=== PATIENT | female | born 1935 | race Caucasian/White ===

== ENCOUNTER 2017-04-01 20:08 | Emergency (ER) | payer MEDICARE, OTHER ==
--- NOTE | 2017-04-01 21:37 | RAD ---
RIGHT SHOULDER THREE VIEWS 04/01/17 HISTORY: Fall. COMPARISON: None. FINDINGS: Multiple old right sided healed rib fractures as seen on prior CT of 03/03/16. No acute fracture or m alalignment of the right shoulder. IMPRESSION: No acute fracture or malalignment of the right shoulder. POS: [facility]
--- NOTE | 2017-04-01 22:42 | CT ---
CT BRAIN WITHOUT CONTRAST 04/01/17 HISTORY: Fall. COMPARISON: CT brain 02/27/16. FINDINGS: Moderate atrophy. Extensive microvascular ischemic changes, chronic. Atrophy of the left inferior tem poral lobe. No hemorrhage. No midline shift of mass effect. The calvarium is intact. The paranasal sinuses and mastoids are clear. IMPRESSION: Chronic changes. No acute intracranial abnormality. POS: [facility]
--- NOTE | 2017-04-01 23:04 | CT ---
EXAM: CT CERVICAL SPINE WITHOUT CONTRAST 04/01/17 COMPARISON: 07/16/15. HISTORY: Fall. Pain. TECHNIQUE: Cervical spine Ct is performed without contrast. reformatted images are submitted for interpretation. FINDINGS: Odontoid process is intact. Lateral masses of C1 and C2 articulate appropriately. There is appropriat e alignment of the facets. Multilevel facet degenerative changes noted. There are varying degrees of central canal stenosis and foraminal narrowing on the basis of degenerative change. The visualized soft tissue neck structures are unremarkable. Chronic changes in the lung apices are n oted. Upper mediastinum is unremarkable. On the sagittal reformatted images, there is anterolisthesis of C4 upon C5, and C5 upon C6. The degre e of anterolisthesis at C4-C5 is unchanged. There is progression of anterolisthesis of C5 upon C6. If there is concern for ligamentous injury, consider MRI. Cervical spine vertebral body height is maintained. No fracture. IMPRESSION: 1. No fracture. 2. Stable anterolisthesis of C4 upon C5. Progression of anterolisthesis of C5 upon C6, likely du e to degenerative change. If there is concern for ligamentous injury, consider MRI. POS: [facility]
== END 2017-04-01 23:30 | disposition home or self-care (01) ==
LOC: ERS 20:08
DX: S01.01XA Laceration without foreign body of scalp, initial encounter (principal); I10 Essential (primary) hypertension; I48.91 Unspecified atrial fibrillation; Z86.73 Personal history of transient ischemic attack (TIA), and cerebral infarction without residual deficits; J42 Unspecified chronic bronchitis; Z79.82 Long term (current) use of aspirin; Z79.899 Other long term (current) drug therapy; W01.0XXA Fall on same level from slipping, tripping and stumbling without subsequent striking against object, initial encounter
CPT/HCPCS: 12011; 70450; 72125

== ENCOUNTER 2017-05-22 13:27 | Outpatient (CLI) | payer MEDICARE, OTHER ==
--- NOTE | 2017-05-22 14:04 | RAD ---
CHEST 2 VIEWS: HISTORY: Dyspnea. COMPARISON: Chest 1 view 03/03/16. FINDINGS: Chronic pleural and parenchymal changes of the lung bases and lung apices. No focal airspace consoli dation, pneumothorax, or effusion. Old rib fractures. Heart size is similar. IMPRESSION: Chronic changes. No acute intrathoracic abnormality. No significant change. POS: [facility]
== END 2017-05-22 13:28 | disposition home or self-care (01) ==
LOC: RAD 13:27
PROVIDERS: ATTEND Internal Medicine Pulmonary Disease
DX: E03.8 Other specified hypothyroidism (principal); I10 Essential (primary) hypertension; E78.5 Hyperlipidemia, unspecified; D64.9 Anemia, unspecified; E55.9 Vitamin D deficiency, unspecified; E11.9 Type 2 diabetes mellitus without complications; Z79.899 Other long term (current) drug therapy
CPT/HCPCS: 71046

== ENCOUNTER 2017-12-21 12:01 | Inpatient (IN) | payer MEDICARE, OTHER ==
[2017-12-21 12:27] LABS: Bilirubin Small (Negative); Blood, Urine Small (Negative); Clarity TURBID (Clear); Glucose, Urine (Dipstick) Negative (Negative); Leukocyte Large (Negative); Nitrite Negative (Negative); Protein, Urine (Dipstick) 30 mg/dL (Neg-Trace); Specific Gravity, Urine 1.023 (1.002-1.036)
[2017-12-21 12:28] LABS: Bacteria/HPF 4+ HPF (None Seen); Hyaline Casts/LPF 4-6 HYALINE CAST LPF (0-3 Hyaline); Pathc Cast-AUWi Flag 1.38 (0-2.49); Squamous Epithelial None Seen HPF (0-3)
[2017-12-21 12:30] LABS: Yeast-AUWi Flag 116.5 (0-25.0)
[2017-12-21 12:37] LABS: Yeast-All Forms None Seen HPF (None Seen)
[2017-12-21 12:49] LABS: #Lymphocytes 0.8 thou/uL (1.20-3.40); #Monocytes 0.7 thou/uL (0.11-0.59); #Neutrophils 8.4 thou/uL (1.40-6.50); %Eosinophils 0.4 % (0.0-10.0); %Lymphocytes 8.2 % (21.0-51.0); %Monocytes 7.2 % (0.0-10.0); %Neutrophils 84.2 % (42.0-75.0); Hemoglobin 12.5 g/dL (12.0-16.0); MDiff Complete? YES; Macrocytosis SLIGHT = 6-15 cells (100X) (0-5/hpf); Mean Corpuscular HGB CONC 33.5 g/dL (32.0-36.0); Mean Corpuscular Hemoglobin 37.2 pg (27.0-31.0); Mean Platelet Volume 7.1 fL (7.4-10.4); Platelet Count 249 thou/uL (130-400); Polychromasia SLIGHT = 2-3 cells (100X) (0-2/hpf); RBC Distribution Width 14.1 % (11.5-14.5); Red Blood Cell (RBC) Count 3.37 mill/uL (4.20-5.40)
[2017-12-21 12:53] LABS: ALT (SGPT) 10 U/L (8-55); AST (SGOT) 22 U/L (5-34); Albumin 3.8 g/dL (3.4-4.8); Alkaline Phosphatase 68 U/L (40-150); Anion Gap 13 mmol/L (10-20); BUN (Urea Nitrogen) 12 mg/dL (9.8-20.1); Bilirubin, Total 0.7 mg/dL (0.2-1.2); CK (CPK) 76 U/L (29-168); Calc. Creatinine Clearance 0 mL/min (70-130); Calcium 9.4 mg/dL (7.8-10.44); Carbon Dioxide 20 mmol/L (23-31); Chloride 105 mmol/L (98-107); Estimated GFR-MDRD 69; Globulin 3.3 g/dL (2.4-3.5); Glucose 219 mg/dL (83-110); Potassium 3.8 mmol/L (3.5-5.1); Protein, Total 7.1 g/dL (6.0-8.3); Sodium 134 mmol/L (136-145)
[2017-12-21 13:11] LABS: Troponin I 0.217 ng/mL (< 0.028)
[2017-12-21] MEDS ORDERED: cefTRIAXone\\ROCEPHIN 2 GM VIAL ONE (13:46)
--- NOTE | 2017-12-21 13:53 | CT ---
CT OF THE BRAIN WITHOUT CONTRAST: Date: 12/21/17 COMPARISON: 04/01/17. HISTORY: Fall on Friday. Increased weakness per the event. Baseline dementia. TECHNIQUE: Multiple contiguous axial images were obtained in a CT of the brain without contrast. FINDINGS: There are scattered hypodensities in the subcortical and periventricular white matter, likely seconda ry to small vessel ischemic disease. No large confluent infarction is seen. There is no evidence of h ydrocephalus, intracranial hemorrhage, or extra-axial fluid collection. The calvarium and overlying soft tissues are unremarkable. The visualized paranasal sinuses and masto id air cells are well aerated. IMPRESSION: No evidence of acute intracranial abnormality. POS: [facility]
--- NOTE | 2017-12-21 13:58 | CT ---
CT CERVICAL SPINE: Date: 12/21/17 HISTORY: Patient with fall 4 days ago with weakness. History of dementia. FINDINGS: Noncontrast enhanced CT images of cervical spine obtained. Sagittal and coronal reconstructed images performed. FINDINGS: CT images demonstrate minimal anterolisthesis of C4 on C5. Disc space height loss is also seen at C5- 6. Broad based disc osteophyte complex is seen at C5-6 and C6-7. No evidence of acute cervical spine fractures, subluxations, or bony lesions seen. IMPRESSION: Cervical degenerative changes with no evidence of acute cervical spine fractures seen. POS: [facility]
--- NOTE | 2017-12-21 14:03 | CT ---
CT LUMBAR SPINE: Date: 12/21/17 HISTORY: Fall. Back pain. TECHNIQUE: Noncontrast enhanced CT images of lumbar spine indicate an acute T12 compression fracture with approx imately 35% height loss at the T12 level. There is approximately 5.5 mm of retropulsion of some of th e displaced osseous fragments at the anterior aspect of the spinal canal. The posterior elements of T 12 are intact. There is Grade II anterolisthesis of L5 on S1 and bilateral pars defects. These were present on the p yasmine's previous comparison CT from 01/28/12. No other acute lumbar spine lesions seen. IMPRESSION: Acute T12 compression fracture with approximately 35% height loss. Findings called to [place] at 1303 hours on 12/21/17. CODE CR. POS: [facility]
--- NOTE | 2017-12-21 14:11 | RAD ---
SINGLE VIEW PELVIS: Date: 12/21/17 COMPARISON: 07/17/15. HISTORY: Fall on Friday with increased weakness since the event. FINDINGS: Single view of the pelvis shows no evidence of acute fracture or dislocation. There is remodeling of the left superior and inferior pubic rami which represent remote healed fractures. Degenerative reese es are seen in the lumbar spine. IMPRESSION: Healed left pelvic fractures without acute osseous abnormality. POS: [facility]
[2017-12-21 15:59] LABS: Troponin I 0.241 ng/mL (< 0.028)
[2017-12-21] MEDS ORDERED: Acetaminophen 325 MG TAB PO PRN (18:33)
[2017-12-21] MEDS ORDERED: cloNIDine 0.1 MG TAB PO PRN (18:38)
[2017-12-21 18:46] LABS: Troponin I 0.227 ng/mL (< 0.028)
[2017-12-21] MEDS: Potassium Chloride 10 MEQ TAB PO SCH (21:22)
[2017-12-21] MEDS: levETIRAcetam 500 mg/5 ml Oral Solution PO SCH (21:23)
[2017-12-21] MEDS: sulfaSALAzine 500 MG TAB PO SCH (21:23)
[2017-12-21] MEDS: Metoprolol Tartrate 25 MG TAB PO SCH (21:23)
[2017-12-22] MEDS: HYDROcodone/Acetaminophen 5/325 mg Tablet PO PRN ×4 (00:33→21:04)
--- NOTE | 2017-12-22 01:25 | CON ---
DATE OF CONSULTATION: 12/21/2017 CHIEF COMPLAINT: Altered mental status and weakness. HISTORY OF PRESENT ILLNESS: Ms. Aguiar has a baseline dementia and history of stroke approximately 3 years ago, who reported that she had a fall 4 days ago that was not witnessed. The patient lives wi th her and he found her on the floor and at times her son come over and picks her up. Follow ing that incident, the patient has had low back pain. She states that she has been increasingly conf used over the last 4 days as well as having some increase in pain. She denies any radicular pain. N o numbness or tingling down either one of her legs. She denies any new urinary symptoms other than f requency which is normal with her UTI. The patient has had to wear adult diapers for sometime now an d she has no new urgency or incontinence. The patient has short term memory loss; however, that has gotten worse the last few days. Her long-term memory is more or less intact. The patient is alert a nd oriented to person. She notes that she is in the hospital, but is unsure what hospital it is. Th e patient's son and daughter have been in the room. They state that the patient's has been t rying to wean her off her walker a little too quickly and this has led to some increase in falls. REVIEW OF SYSTEMS: The patient denies any fever or chills recently. She does report some fatigue an d weakness. The patient denies any change in vision or hearing. No difficulty with swallowing. No abdominal anita n, shortness of breath, palpitations or chest pain. The patient denies any nausea or vomiting. No d iarrhea or constipation. The patient reports back pain. No neurologic changes. PAST MEDICAL HISTORY: Cardiac history of arrhythmia, atrial fibrillation and also SVT; history of hy pertension; rheumatoid arthritis; frequent falls; chronic bronchitis; and osteoporosis. PAST SURGICAL HISTORY: Appendectomy, hysterectomy and cardiac ablation. SOCIAL HISTORY: The patient denies any use of alcohol. No smoking or other illicit drugs. She live s with her in their home. They have someone come in and help prepare meals and a nurse that will give medications once a week or so. They are currently living fairly independently. ALLERGIES: PENICILLIN. MEDICATIONS: Aspirin, Tirosint, atorvastatin, folic acid, , levothyroxine, lisinopril, metoprol ol, pantoprazole, potassium chloride, prednisone, trazodone, , clonidine, diltiazem. PHYSICAL EXAMINATION: VITAL SIGNS: Temperature 97.1, heart rate 79, respiratory rate 18, O2 sats 97% on room air, blood pr essure 160/71. GENERAL: The patient is resting in her hospital bed. She does not appear to be in any visible distr ess. She is afebrile. Nonhypertensive, nontoxic. She is alert and oriented to person, place, and t ely. HEAD: Normocephalic, atraumatic. EYES: Extraocular movements are intact. Pupils are equal, round, and reactive to light. ENT: Moist mucous membranes. RESPIRATORY: Normal work of breathing on room air. Normal chest rise bilateral symmetrical. CARDIOVASCULAR: Regular rate and rhythm, normal S1, S2. NEUROLOGIC: The patient is alert and oriented to person and place. She knows that she is in the [facility], but is unaware of what hospital. Her short term memory is poor; however, that is normal for h er due to her dementia. medical terminologist memory is little better. The patient has midline tenderness along her spine in the T11 through L3. Her paraspinal muscles bilaterally are also tender and spasm. The patient is able to move all 4 extremities. She is able to follow directions. She has good strength and no focal motor deficits, no sensory deficits in all 4 extremities. Cranial nerves are intact. IMAGING: The patient has an acute T12 compression fracture with approximately 35% height loss. Ther e is approximately 5.5 mm retropulsion into the anterior space of the spinal cord. ASSESSMENT AND PLAN: The patient had sustained a T11 compression fracture. At this time, we will pu t a clamshell TLSO brace on the patient for pain control. She is being admitted with the hospitalist department to treat her urinary tract infection. While she is in the hospital, she should be seen b y physical therapy. A rehab is probably going to be a good idea for this patient to increase her str ength more time. The patient should wear her brace at anytime that she is sitting up and out of bed. She should have the brace put on while she is lying down before she sits up. She does not need to be wearing it while she is in bed or showering.
--- NOTE | 2017-12-22 02:07 | HP ---
CHIEF COMPLAINT: Back pain. HISTORY OF PRESENT ILLNESS: The patient is an 82-year-old female with a history of osteoporosis, also has some dementia. The patient also has a history of prior pelvic fracture. The patient fell 4 days prior to her admission. Initially, she appeared to be okay, but over the following couple of days had progressive pain in her back and difficulty functioning because of debility associated with the pain. Ultimately, the patient was brought to the emergency department for further evaluation. The patient has underlying dementia and is unable to give significant history otherwise. The patient's and daughter with her and they report that she simply tripped over something on the floor. She had no loss of consciousness. She had earlier associated some pain in her hip on the right side as well. The patient typically ambulates with a walker, has not been able to do that. REVIEW OF SYSTEMS: Not obtainable from the patient. She has been reported that she has had basically normal bowel and bladder habits. She has had normal appetite, normal sleep and unaware of any other problems that she has been experiencing. PAST MEDICAL HISTORY: Notable for history of atrial fibrillation and SVT, hypertension, rheumatoid arthritis, dementia, history of SIADH with hypertension, history of COPD. PAST SURGICAL HISTORY: Appendectomy, hysterectomy, and cardiac ablation. SOCIAL HISTORY: Nondrinker, nonsmoker. She is . She is a [employer] and her is her surrogate decision maker should that be necessary. ALLERGIES: PENICILLIN. CURRENT MEDICATIONS: Trazodone 50 mg at bedtime, prednisone 20 mg daily, Protonix 40 daily, clonidine 0.1 q.6 hours p.r.n., folate 1 mg daily, diltiazem 30 mg q.i.d., levothyroxine 137 mcg daily, atorvastatin 10 mg daily, aspirin 81 mg daily, metoprolol 25 b.i.d., Zestril 20 mg daily, potassium 10 mEq b.i.d., Azulfidine 500 mg b.i.d., Keppra 500 mg b.i.d. PHYSICAL EXAMINATION: VITAL SIGNS: Temperature 98.7, pulse 91, respirations 16, 97% on room air, BP 167/84. GENERAL APPEARANCE: Age appropriate female. She is in no distress. She is modestly and verbally interactive, but significantly confused. HEENT: PERRL. No OP lesions. HEART: Regular rate and rhythm without murmur. LUNGS: Clear to auscultation bilaterally. ABDOMEN: Soft, nontender, nondistended. EXTREMITIES: Warm and dry. She has a TLSO brace on. IMAGING: Lumbar CT shows an acute T12 compression fracture with 35% loss of height. CT of the brain negative. Pelvic x-ray healed left pelvic fracture with no other acute osseous abnormalities. C-spine, cervical degenerative changes, but no acute fracture. LABORATORY DATA: White count 10.0, hemoglobin 12.5, platelets 249,000. Sodium 134, potassium 3.8, chloride 105, CO2 of 20, BUN 12, creatinine 0.8, glucose 219 , calcium 9.4, AST 22, ALT 10. Troponin 0.217, repeat of 0.241. Urinalysis shows large leukocyte esterase, greater than 50 white cells, 4+ bacteria, no squamous cells. IMPRESSION AND PLAN: 1. Acute T12 compression fracture resulting in significant debility. The patient will be given pain management and will have an ortho to see her. We will also get case management involved in order to start looking at placement. Given her dementia she will probably need custodial rather than acute rehabilitation. We will get physical therapy involved as well. 2. Elevated troponin, unclear etiology, appears to be trending upward. She has no evidence of chest pain or angina. We will consult Cardiology. 3. Urinary tract infection. We will continue with Rocephin. We will be to follow up on cultures to ensure that there is a good viable oral option. 4. History of chronic dementia, stable. [facility]
[2017-12-22] MEDS: Levothyroxine Sodium 125 MCG TAB PO SCH (05:40)
[2017-12-22 06:02] LABS: #Eosinphils 0.1 thou/uL (0.0-0.7); #Lymphocytes 1.5 thou/uL (1.20-3.40); #Monocytes 0.7 thou/uL (0.11-0.59); #Neutrophils 5.7 thou/uL (1.40-6.50); %Basophils 0.2 % (0.0-1.0); %Lymphocytes 19.3 % (21.0-51.0); %Monocytes 8.1 % (0.0-10.0); %Neutrophils 71.4 % (42.0-75.0); Hemoglobin 11.1 g/dL (12.0-16.0); Mean Corpuscular HGB CONC 33.5 g/dL (32.0-36.0); Mean Corpuscular Hemoglobin 36.9 pg (27.0-31.0); Mean Platelet Volume 7.5 fL (7.4-10.4); Platelet Count 230 thou/uL (130-400)
[2017-12-22 06:26] LABS: Anion Gap 12 mmol/L (10-20); BUN (Urea Nitrogen) 9 mg/dL (9.8-20.1); Calc. Creatinine Clearance 72 mL/min (70-130); Calcium 8.8 mg/dL (7.8-10.44); Carbon Dioxide 25 mmol/L (23-31); Chloride 101 mmol/L (98-107); Estimated GFR-MDRD Greater than 90; Glucose 107 mg/dL (83-110); Potassium 3.3 mmol/L (3.5-5.1); Sodium 135 mmol/L (136-145)
--- NOTE | 2017-12-22 07:45 | PRG ---
DATE OF SERVICE: 12/22/2017 I personally interviewed and examined the patient and agree with documentation of Va Garcia PA-C dated 12/21/2017. Briefly, Ksenia Aguiar is an 82-year-old woman with significant dementia. She was reported by her f amily to have a fall or trip last Friday. Because of intractable pain she was brought to the [facility]. CT examination of the thoracolumbar spine revealed a T12 burst fracture with minim al retropulsion. This has been stable for 4 days prior to admission. Overnight, she is relatively c omfortable with pain control in a horizontal position in bed. Bracing has been ordered. This morning, Ms. Aguiar wakes, she answers a few questions. When I asked her to explain why she is here or how the fracture happened, her dementia prevents her from communicating that information. Ot her than her cognitive decline I do not find any new neurological deficits. There is good motor and sensory function in the lower extremities. I reviewed imaging myself and the findings are described above. For Ms. Aguiar we are going to recommend bracing and analgesics. A kyphoplasty or vertebroplasty pro cedure has slightly increased risk given the burst nature of the fracture, but it is not impossible t o consider in the future should nonsurgical management fail. Ms. Aguiar should also be evaluated for severe osteoporosis and started on the appropriate medications to prevent the next fracture.
[2017-12-22] MEDS: sulfaSALAzine 500 MG TAB PO SCH ×2 (08:51→21:04)
[2017-12-22] MEDS: Folic Acid 1 MG TAB PO SCH (08:51)
[2017-12-22] MEDS: Metoprolol Tartrate 25 MG TAB PO SCH ×2 (08:51→21:03)
[2017-12-22] MEDS: Potassium Chloride 10 MEQ TAB PO SCH ×2 (08:51→21:04)
[2017-12-22] MEDS: predniSONE 1 MG TAB PO SCH (08:51)
[2017-12-22] MEDS: Atorvastatin Calcium 10 MG TAB PO SCH (08:51)
[2017-12-22] MEDS: Lisinopril 20 MG TAB PO SCH (08:52)
[2017-12-22] MEDS: levETIRAcetam 500 mg/5 ml Oral Solution PO SCH ×2 (08:52→21:05)
--- NOTE | 2017-12-22 08:57 | PDOC.PN ---
- Subjective Encounter Start Date: 12/22/17 Encounter Start Time: 08:51 Subjective: alert, oriented to person, just weak - Objective Resuscitation Status: Resuscitation Status FULL:Full Resuscitation MAR Reviewed: Yes Vital Signs & Weight: Vital Signs (12 hours) Temp Pulse Resp BP BP BP Pulse Ox 12/22/17 07:13 97.9 F 80 16 135/62 92 L 12/22/17 05:30 171/76 H 12/22/17 04:21 193/76 H 12/22/17 04:00 98 F 72 22 H 195/86 H 92 L 12/22/17 00:00 98.8 F 76 18 163/73 H 92 L Weight Weight 141 lb 6.4 oz I&O: 12/21/17 12/22/17 12/23/17 06:59 06:59 06:59 Intake Total 160 Balance 160 Result Diagrams: 12/22/17 04:49 12/22/17 04:49 Phys Exam - Physical Examination Constitutional: NAD Neck: no JVD Respiratory: clear to auscultation bilateral Cardiovascular: RRR, no significant murmur Gastrointestinal: soft, positive bowel sounds Musculoskeletal: no edema Dx/Plan (1) Compression fracture of thoracic vertebra Code(s): S22.000A - WEDGE COMPRESSION FRACTURE OF UNSP THORACIC VERTEBRA, INIT Status: Acute (2) Atrial fibrillation Code(s): I48.91 - UNSPECIFIED ATRIAL FIBRILLATION Status: Chronic Qualifiers: Atrial fibrillation type: paroxysmal Qualified Code(s): I48.0 - Paroxysmal atrial fibrillation (3) Dementia Code(s): F03.90 - UNSPECIFIED DEMENTIA WITHOUT BEHAVIORAL DISTURBANCE Status: Chronic Qualifiers: Dementia type: unspecified type (4) Falls frequently Code(s): R29.6 - REPEATED FALLS Status: Chronic (5) Hypertension Code(s): I10 - ESSENTIAL (PRIMARY) HYPERTENSION Status: Chronic Qualifiers: Hypertension type: essential hypertension Qualified Code(s): I10 - Essential (primary) hypertension (6) Rheumatoid arthritis Code(s): M06.9 - RHEUMATOID ARTHRITIS, UNSPECIFIED Status: Chronic Qualifiers: Rheumatoid factor presence: unspecified presence Laterality: unspecified laterality - Plan being fitted with brace -: cont home meds -: CMfor DC planning * .
[2017-12-22] MEDS ORDERED: LEVOTHYROXINE SODIUM 137 MCG PO SCH (09:00)
--- NOTE | 2017-12-22 15:38 | CON ---
DATE OF CONSULTATION: 12/22/2017 REASON FOR CONSULTATION: Elevated troponin. HISTORY OF PRESENT ILLNESS: Ms. Daley is a very pleasant 82-year-old woman seen in the past. She h as a history of CAD, status post stent placement to the right coronary artery in 2005. I have seen a nd evaluated Mr. Daley over the last 12 years. She unfortunately has developed progressive dementia . She recently had a fall. She had compression fractures present. No syncope, presyncope noted. N o chest pain or pressure. No shortness of breath. No symptoms suggesting angina. PAST MEDICAL HISTORY: Hyperlipidemia, hypertension, diabetes mellitus, mitral regurgitation, rheumat oid arthritis, osteoporosis, paroxysmal atrial fibrillation. PAST SURGICAL HISTORY: Hysterectomy, status post stent placement. ALLERGIES: INSULIN. HOME MEDICATIONS: Include Lipitor, lisinopril, trazodone, potassium, Tirosint, clonidine, pantoprazo le, metoprolol, diltiazem, iron, prednisone. REVIEW OF SYSTEMS: Ten point review of systems reviewed as above, otherwise negative. PHYSICAL EXAMINATION: VITAL SIGNS: Blood pressure 163/76, pulse 71, temperature 98.6. PHYSICAL EXAMINATION: GENERAL: Patient is a pleasant male/female who is in no acute distress. The patient appears his/her stated age. VITAL SIGNS: Blood pressure , pulse , temperature . NEUROLOGIC: The patient is alert and oriented times 3 with no focal neurologic deficits. HEENT: Sclerae without icterus. Mouth has moist mucous membranes with normal pallor. NECK: No JVD. Carotid upstroke brisk. No bruits bilaterally. LUNGS: Clear to auscultation with unlabored respirations. BACK: No scoliosis or kyphosis. CARDIAC: Regular rate and rhythm with normal S1 and S2. No S3 or S4 noted. No significant rubs, mu rmurs, thrills, or gallops noted throughout the precordium. PMI is not displaced. There is no franco ternal heave. ABDOMEN: Soft, nontender, nondistended. No peritoneal signs present. No hepatosplenomegaly. No ab normal striae. EXTREMITIES: 2+ femoral and 2+ dorsalis pedis pulses. No cyanosis, clubbing, or edema. SKIN: No gross abnormalities. PERTINENT LABORATORY DATA: Peak troponin 0.2, hemoglobin 11.1. IMPRESSION: 1. Elevated troponin. 2. Recent fall. 3. Coronary artery disease. 4. Status post stent placement. RECOMMENDATIONS: At this point, Ms. Daley's symptoms are likely due to demand ischemia. She did real ve residual stenosis present within the LAD in 2005, thought last time she underwent coronary angiogr aphy. Her last stress study performed in 05/2017 and was felt to be probably normal with LVEF 60%. No areas of ischemia present. At this point, we will continue conservative therapy. Statin therapy and blood pressure monitoring in addition to blood sugar control are impaired. Otherwise, from my [facility], I have no further recommendations.
[2017-12-23] MEDS: Levothyroxine Sodium 125 MCG TAB PO SCH (05:12)
[2017-12-23] MEDS: Levothyroxine Sodium 25 MCG TAB PO SCH (05:12)
[2017-12-23] MEDS: Levothyroxine Sodium 112 MCG TAB PO SCH (05:16)
--- NOTE | 2017-12-23 06:47 | PDOC.CTH ---
Cardiology Progress Note - Subjective No new complaints - Objective Vital Signs Temp Pulse Resp BP BP Pulse Ox 12/23/17 04:00 97.5 F L 76 17 167/74 H 96 12/22/17 23:55 98.3 F 88 17 150/78 H 94 L 12/22/17 20:00 98.0 F 86 15 164/78 H 98 Weight 137 lb 8 oz 12/21/17 12/22/17 12/23/17 06:59 06:59 06:59 Intake Total 160 300 Balance 160 300 - Physical Examination General/Neuro: NAD Neck: no JVD present Lungs: CTA, unlabored respirations Heart: PMI normal, RRR Abdomen: NT/ND, soft Extremities: + femoral B - Labs Result Diagrams: 12/22/17 04:49 12/22/17 04:49 Troponin/CKMB CK-MB (CK-2) 3.0 ng/mL (0-6.6) 12/21/17 12:23 Troponin I 0.227 ng/mL (< 0.028) H 12/21/17 18:13 - Assessment/Plan HTN Elevated troponin CAD Recent compression fracture Dementia Conservative treatment Add Norvasc Ok to transfer to medical/surgical
[2017-12-23] MEDS: sulfaSALAzine 500 MG TAB PO SCH (09:14)
[2017-12-23] MEDS: predniSONE 1 MG TAB PO SCH (09:15)
[2017-12-23] MEDS: Potassium Chloride 10 MEQ TAB PO SCH (09:15)
[2017-12-23] MEDS: Atorvastatin Calcium 10 MG TAB PO SCH (09:15)
[2017-12-23] MEDS: Lisinopril 20 MG TAB PO SCH (09:16)
[2017-12-23] MEDS: Folic Acid 1 MG TAB PO SCH (09:17)
[2017-12-23] MEDS: Amlodipine 5 MG TAB PO SCH (09:18)
[2017-12-23] MEDS: levETIRAcetam 500 mg/5 ml Oral Solution PO SCH ×2 (09:19→22:12)
[2017-12-23] MEDS: Metoprolol Tartrate 25 MG TAB PO SCH (09:19)
--- NOTE | 2017-12-23 10:07 | PDOC.PN ---
- Subjective Encounter Start Date: 12/23/17 Encounter Start Time: 10:06 Subjective: calm, no awareness of injury - Objective Resuscitation Status: Resuscitation Status FULL:Full Resuscitation MAR Reviewed: Yes Vital Signs & Weight: Vital Signs (12 hours) Temp Pulse Resp BP BP Pulse Ox 12/23/17 09:18 81 12/23/17 09:16 135/62 12/23/17 07:40 98.0 F 81 18 181/82 H 93 L 12/23/17 04:00 97.5 F L 76 17 167/74 H 96 12/22/17 23:55 98.3 F 88 17 150/78 H 94 L Weight Weight 137 lb 8 oz I&O: 12/22/17 12/23/17 12/24/17 06:59 06:59 06:59 Intake Total 160 300 Balance 160 300 Result Diagrams: 12/22/17 04:49 12/22/17 04:49 Phys Exam - Physical Examination Neck: no JVD Respiratory: clear to auscultation bilateral Cardiovascular: RRR, no significant murmur Gastrointestinal: soft, positive bowel sounds Musculoskeletal: no edema thoracic brace in place Dx/Plan (1) Compression fracture of thoracic vertebra Code(s): S22.000A - WEDGE COMPRESSION FRACTURE OF UNSP THORACIC VERTEBRA, INIT Status: Acute Qualifiers: Encounter type: initial encounter (2) Atrial fibrillation Code(s): I48.91 - UNSPECIFIED ATRIAL FIBRILLATION Status: Chronic Qualifiers: Atrial fibrillation type: paroxysmal Qualified Code(s): I48.0 - Paroxysmal atrial fibrillation (3) Dementia Code(s): F03.90 - UNSPECIFIED DEMENTIA WITHOUT BEHAVIORAL DISTURBANCE Status: Chronic Qualifiers: Dementia type: unspecified type (4) Falls frequently Code(s): R29.6 - REPEATED FALLS Status: Chronic (5) Hypertension Code(s): I10 - ESSENTIAL (PRIMARY) HYPERTENSION Status: Chronic Qualifiers: Hypertension type: essential hypertension Qualified Code(s): I10 - Essential (primary) hypertension (6) Rheumatoid arthritis Code(s): M06.9 - RHEUMATOID ARTHRITIS, UNSPECIFIED Status: Chronic Qualifiers: Rheumatoid factor presence: unspecified presence Laterality: unspecified laterality (7) Elevated troponin Code(s): R74.8 - ABNORMAL LEVELS OF OTHER SERUM ENZYMES Status: Acute - Plan stable, adequate pain control -: placement -: DC tele -: cont statin, diltiazem, etc * .
[2017-12-23] MEDS: hydrALAZINE 20 MG/ML VIAL SLOW IVP PRN (21:01)
[2017-12-23] MEDS: Ondansetron HCl/PF 4 MG/2 ML Vial SLOW IVP PRN (21:03)
[2017-12-23] MEDS: HYDROcodone/Acetaminophen 5/325 mg Tablet PO PRN (22:12)
[2017-12-23] MEDS ORDERED: Dextrose 50% Abboject 50 ML SYRINGE ONE (22:26)
[2017-12-23] MEDS ORDERED: Sodium Chloride 0.9% 1,000 ML IV SCH (23:00)
[2017-12-23] MEDS ORDERED: Meropenem 1 GM in Sodium Chloride 0.9% 100 ML IVPB SCH (23:00)
--- NOTE | 2017-12-23 23:04 | RAD ---
CHEST ONE VIEW: 12/23/17 HISTORY: Code green. COMPARISON: Chest radiograph 02/15/16. FINDINGS: Chronic interstitial markings lung bases. Heart size upper limits of normal. No pneumothorax. No acut e osseous abnormality. IMPRESSION: No acute abnormality. POS: [facility]
[2017-12-23 23:09] LABS: Actual Bicarbonate (HCO3a) 18.7 mEq/L (22-28); Base Excess (BEa) 4.3 mEq/L (-2.0 to +3.0); CO2 Tension 29.2 mmHg (35.0-45.0); Hemoglobin (Hb) 14.6 g/dL (12.0-16.0); pH, Arterial 7.42 (7.35-7.45)
[2017-12-23 23:10] LABS: Calcium, Ionized 1.1 mmol/L (1.12-1.30); Carboxyhemoglobin (COHb) 1.6 gm% (0.0-3.0); Potassium - ABG Lab 3.8 mmol/L (3.70-5.30)
[2017-12-23 23:11] LABS: Puncture Site LBA
--- NOTE | 2017-12-23 23:15 | PDOC.EVN ---
Event Note - Event Note Event Note: Code Green called for worsening mentation. Patient lethargic. Patent seen and examined. Stat labs, ABGs and imaging ordered. Will transfer to [facility] for close monitoring.
[2017-12-23 23:25] LABS: ALT (SGPT) 11 U/L (8-55); AST (SGOT) 20 U/L (5-34); Albumin 3.6 g/dL (3.4-4.8); Alkaline Phosphatase 78 U/L (40-150); Anion Gap 17 mmol/L (10-20); BUN (Urea Nitrogen) 14 mg/dL (9.8-20.1); Bilirubin, Total 0.7 mg/dL (0.2-1.2); CRP (Inflammatory) 8.71 mg/dL (= or < 0.5); Calc. Creatinine Clearance 53 mL/min (70-130); Calcium 9.1 mg/dL (7.8-10.44); Carbon Dioxide 21 mmol/L (23-31); Chloride 98 mmol/L (98-107); Estimated GFR-MDRD 69; Globulin 3.7 g/dL (2.4-3.5); Glucose 308 mg/dL (83-110); Magnesium 1.4 mg/dL (1.6-2.6); Phosphorus 3.5 mg/dL (2.3-4.7); Potassium 3.6 mmol/L (3.5-5.1); Protein, Total 7.3 g/dL (6.0-8.3); Sodium 132 mmol/L (136-145)
[2017-12-23] MEDS ORDERED: Dextrose 5% in Water 1,000 ML IV PRN (23:28)
[2017-12-23] MEDS ORDERED: Dextrose 50% Abboject 50 ML SYRINGE SLOW IVP PRN (23:28)
[2017-12-23 23:30] LABS: CKMB 5.1 ng/mL (0-6.6); Troponin I 0.023 ng/mL (< 0.028)
[2017-12-23] MEDS ORDERED: Magnesium Sulfate 4 GM in Sodium Chloride 0.9% 250 ML 250 ML IVPB SCH (23:30)
[2017-12-23 23:45] LABS: Bilirubin Small (Negative); Blood, Urine Negative (Negative); Clarity CLOUDY (Clear); Glucose, Urine (Dipstick) Negative (Negative); Leukocyte Large (Negative); Nitrite Negative (Negative); Protein, Urine (Dipstick) 30 mg/dL (Neg-Trace); Urobilinogen 0.2 mg/dL (0.2-1.0)
[2017-12-23 23:47] LABS: Bacteria/HPF None Seen HPF (None Seen); Hyaline Casts/LPF 4-6 HYALINE CAST LPF (0-3 Hyaline); Pathc Cast-AUWi Flag 0.29 (0-2.49); Squamous Epithelial None Seen HPF (0-3); Yeast-AUWi Flag 7.9 (0-25.0)
[2017-12-23 23:53] LABS: Mean Corpuscular HGB CONC 33.3 g/dL (32.0-36.0); Platelet Count 321 thou/uL (130-400); RBC Distribution Width 14.1 % (11.5-14.5); Red Blood Cell (RBC) Count 4.05 mill/uL (4.20-5.40); White Blood Cell (WBC) Count 19.9 thou/uL (4.8-10.8)
--- NOTE | 2017-12-23 23:54 | CT ---
CT OF THE BRAIN WITHOUT CONTRAST 12/23/17 HISTORY: Altered mental status. COMPARISON: CT brain 12/21/17. FINDINGS: Severe chronic subcortical and deep white matter microvascular ischemic changes. Old left basal gangl ia infarct. Moderate atrophy. No hemorrhage. No midline shift or mass effect. No new abnormal areas o f loss of the mckeon-white matter differentiation. Globes are normal. Calvarium is intact. IMPRESSION: No acute intracranial abnormality. Chronic changes. A phone call is made to the provided number, although there was no answer. POS: [facility]
--- NOTE | 2017-12-23 23:58 | RAD ---
ABDOMEN ONE VIEW: 12/23/17 HISTORY: Abdominal pain, nausea and vomiting. COMPARISON: None. FINDINGS: There appears to be distention of the cecum with fecalization of bowel. Evaluation of free air is silverio ited without upright exam. Lucency along the mid abdomen in a transverse fashion may reflect a skin f old. Mild vascular calcifications. Moderate degenerative disease lower lumbar spine. IMPRESSION: 1. Distended cecum with linear lucency along the mid abdomen. This may reflect a skin fold, alth ough evaluation of free air is limited without an upright examination. Recommend upright examination if patient continues to have abdominal pain. 2. Compression fracture at T12. POS: [facility]
[2017-12-23] MEDS ORDERED: Magnesium 2 GM/NS 0.9% 100 ML 2 GM in Premix Bag 1 BAG IVPB SCH (23:59)
[2017-12-24 00:11] LABS: #Monocytes 0.7 thou/uL (0.11-0.59); #Neutrophils 18.2 thou/uL (1.40-6.50); %Eosinophils 0.1 % (0.0-10.0); %Lymphocytes 5.2 % (21.0-51.0); %Monocytes 3.3 % (0.0-10.0); %Neutrophils 91.4 % (42.0-75.0)
[2017-12-24 00:12] LABS: MDiff Complete? YES; Macrocytosis SLIGHT = 6-15 cells (100X) (0-5/hpf); PLT Morphology Comment Appears Adequate
[2017-12-24] MEDS: MEROPENEM 1 GM/50 ML 1 GM in Premix Bag 1 BAG IVPB SCH ×3 (00:15→13:46)
[2017-12-24] MEDS: Insulin Regular 300 UNITS/3 ML VIAL SC PRN (00:32)
--- NOTE | 2017-12-24 01:05 | PDOC.EVN ---
Event Note - Event Note Event Note: RN called - Pt in SVT - Will try Cardizem 5 mg IV bolus followed by drip. Labs reviewed. AM labs ordered. D-dimer is elevated. Please consider V/Q or CT angio chest to r/o PE based on AM labs.
[2017-12-24] MEDS ORDERED: Diltiazem 125 MG in Sodium Chloride 0.9% 100 ML IVPB SCH (01:15)
[2017-12-24] MEDS ORDERED: Sodium Chloride 0.9% 500 ML IV SCH (01:15)
[2017-12-24] MEDS: Sodium Chloride 0.9% 1,000 ML IV SCH ×4 (01:25→21:01)
[2017-12-24] MEDS ORDERED: Magnesium 2 GM/NS 0.9% 100 ML 2 GM in Premix Bag 1 BAG IVPB SCH (01:30)
[2017-12-24] MEDS: Diltiazem 125 MG in Sodium Chloride 0.9% 100 ML IVPB SCH (01:58)
[2017-12-24] MEDS: Metoprolol Tartrate 25 MG TAB PO SCH ×3 (02:07→20:55)
[2017-12-24] MEDS: Potassium Chloride 10 MEQ TAB PO SCH ×3 (02:07→20:55)
[2017-12-24] MEDS: sulfaSALAzine 500 MG TAB PO SCH ×3 (02:08→20:56)
[2017-12-24 04:27] LABS: #Lymphocytes 0.5 thou/uL (1.20-3.40); #Monocytes 0.8 thou/uL (0.11-0.59); #Neutrophils 16.6 thou/uL (1.40-6.50); %Basophils 0.1 % (0.0-1.0); %Eosinophils 0.2 % (0.0-10.0); %Monocytes 4.3 % (0.0-10.0); %Neutrophils 92.5 % (42.0-75.0); Hemoglobin 14.7 g/dL (12.0-16.0); Mean Corpuscular HGB CONC 32.2 g/dL (32.0-36.0); Mean Corpuscular Hemoglobin 35.8 pg (27.0-31.0); Mean Platelet Volume 7.7 fL (7.4-10.4); Platelet Count 295 thou/uL (130-400); RBC Distribution Width 14.2 % (11.5-14.5); Red Blood Cell (RBC) Count 4.11 mill/uL (4.20-5.40); White Blood Cell (WBC) Count 17.9 thou/uL (4.8-10.8)
[2017-12-24 04:36] LABS: Lactic Acid 3.3 mmol/L (0.5-2.2)
[2017-12-24 04:39] LABS: Anion Gap 18 mmol/L (10-20); BUN (Urea Nitrogen) 18 mg/dL (9.8-20.1); Calc. Creatinine Clearance 50 mL/min (70-130); Calcium 8.7 mg/dL (7.8-10.44); Carbon Dioxide 17 mmol/L (23-31); Chloride 104 mmol/L (98-107); Estimated GFR-MDRD 63; Glucose 294 mg/dL (83-110); Potassium 3.8 mmol/L (3.5-5.1); Sodium 135 mmol/L (136-145)
[2017-12-24 04:48] LABS: Troponin I 1.148 ng/mL (< 0.028)
--- NOTE | 2017-12-24 06:31 | PDOC.CTH ---
Cardiology Progress Note - Subjective Pt resting comfortable. HR stable. EPisode of SVT last pm and transferred to IMCU. Pt with loss of IV access during the time of SVT - Objective Vital Signs Temp Pulse Pulse Pulse Resp Resp Resp 12/24/17 03:55 96.9 F L 114 H 28 H 12/24/17 00:00 96.3 F L 104 H 16 12/23/17 22:32 101 H 97 20 16 12/23/17 21:01 82 BP BP BP BP Pulse Ox Pulse Ox 12/24/17 03:55 157/65 H 94 L 12/24/17 00:00 126/69 100 12/23/17 22:32 171/76 H 144/64 H 95 12/23/17 21:01 210/95 H Weight 129 lb 3.2 oz 12/22/17 12/23/17 12/24/17 06:59 06:59 06:59 Intake Total 004 488 0742 Output Total 250 Balance 452 332 9704 - Physical Examination General/Neuro: NAD Neck: carotid US brisk, no JVD present Lungs: CTA, unlabored respirations Heart: RRR Abdomen: NT/ND, soft Extremities: + femoral B - Labs Result Diagrams: 12/24/17 03:45 12/24/17 03:45 Troponin/CKMB CK-MB (CK-2) 5.1 ng/mL (0-6.6) 12/23/17 22:49 Troponin I 1.148 ng/mL (< 0.028) H* 12/24/17 03:45 - Assessment/Plan 1. Elevated troponin 2. SVT 3. HTN 4. Dementia Pt transferred to IMCU overnight secondary to SVT and tachycardia HR currently stable Continue with conservative treatment for now Overall prognosis poor on IV CCB. Supplement with PO CCB Do not recommend ablation at this time
[2017-12-24] MEDS: Folic Acid 1 MG TAB PO SCH (08:23)
[2017-12-24] MEDS: Atorvastatin Calcium 10 MG TAB PO SCH (08:24)
[2017-12-24] MEDS: Amlodipine 5 MG TAB PO SCH (08:24)
[2017-12-24] MEDS: Lisinopril 20 MG TAB PO SCH (08:24)
[2017-12-24] MEDS: predniSONE 1 MG TAB PO SCH (08:25)
[2017-12-24] MEDS: levETIRAcetam 500 mg/5 ml Oral Solution PO SCH ×2 (08:25→20:56)
--- NOTE | 2017-12-24 09:08 | CON ---
DATE of CONSULTATION: 12/24/2017 CONSULTING PHYSICIAN: [facility] mandatory consultation for stay. HISTORY OF PRESENT ILLNESS: An 82-year-old female who was admitted to the hospital several days ago. She was transferred to the [facility] last night for sustained SVT. She cannot give a history, because s he is demented. History and physical states that she was here for treatment of pain associated with the T12 compressi on fracture, as well as an elevated troponin and urinary tract infection. She has been seen by both Internal Medicine and Cardiology during her stay. PAST MEDICAL HISTORY: 1. Atrial fibrillation. 2. Supraventricular tachycardia. 3. Hypertension. 4. Rheumatoid arthritis. 5. Dementia. 6. Chronic obstructive pulmonary disease. 7. Bronchiectasis. PAST SURGICAL HISTORY: 1. Appendectomy. 2. Hysterectomy. 3. Cardiac ablation. SOCIAL HISTORY: Nonsmoker, does not consume alcohol. ALLERGIES: PENICILLIN. MEDICATIONS: Prior to admission, trazodone, prednisone, Protonix, clonidine, folate, diltiazem, levo thyroxine, atorvastatin, aspirin, metoprolol, Zestril, potassium, Azulfidine, Keppra, Symbicort. REVIEW OF SYSTEMS: Cannot be obtained from the patient reliably secondary to her dementia. PHYSICAL EXAMINATION: VITAL SIGNS: Temperature 98.6, pulse 120, blood pressure 155/58, O2 sat 94%. HEENT: Unremarkable. NECK: No JVD. CARDIOVASCULAR: S1, S2 irregularly irregular without murmur. LUNGS: Fairly clear anteriorly. ABDOMEN: Soft, nontender. EXTREMITIES: No edema. X-RAY FINDINGS: Chest x-ray shows no acute mass, effusion or infiltrate. She has hyperinflated, dem onstrated by the increased distance between the ribs. LABORATORY DATA: White blood cell count 17.9, hematocrit 45.7, platelet count 295. PH 7.42, pCO2 of 29, pO2 85 on room air. Sodium 135, potassium 3.8, chloride 104, CO2 17, BUN 18, creatinine 0.8, gl ucose 211. Troponin 1.12. ASSESSMENT: 1. Supraventricular tachycardia. 2. T-spine compression fracture. 3. Urinary tract infection with E. coli, which is resistant to ampicillin, Unasyn and Bactrim. PLAN: Supportive care as you are doing. Her pulmonary status is currently stable. It does not appe ar that she is in need of any bronchodilators at this time. I will notify Dr. Borrego of her admission.
[2017-12-24 10:38] LABS: Troponin I 4.027 ng/mL (< 0.028)
[2017-12-25] MEDS: MEROPENEM 1 GM/50 ML 1 GM in Premix Bag 1 BAG IVPB SCH ×2 (00:35→09:24)
[2017-12-25] MEDS: Diltiazem 125 MG in Sodium Chloride 0.9% 100 ML IVPB SCH (01:57)
--- NOTE | 2017-12-25 05:56 | PDOC.CTH ---
Cardiology Progress Note - Subjective No changes overnight. Pt no longer on IV CCB. - Objective Vital Signs Temp Pulse Resp BP Pulse Ox 12/25/17 03:54 97.8 F 103 H 14 135/61 91 L 12/25/17 00:00 97.5 F L 99 16 155/61 H 92 L 12/24/17 19:52 97.4 F L 115 H 18 135/61 93 L 12/24/17 19:24 97.1 F L 104 H 18 98 Weight 129 lb 3.2 oz 12/23/17 12/24/17 12/25/17 06:59 06:59 06:59 Intake Total 300 1899 1050 Output Total 250 650 Balance 300 1649 400 - Physical Examination General/Neuro: NAD Neck: no JVD present Lungs: CTA, unlabored respirations Heart: PMI normal, RRR Abdomen: NT/ND, soft Extremities: + femoral B - Labs Result Diagrams: 12/24/17 03:45 12/24/17 03:45 Troponin/CKMB CK-MB (CK-2) 5.1 ng/mL (0-6.6) 12/23/17 22:49 Troponin I 4.027 ng/mL (< 0.028) H* 12/24/17 09:13 - Assessment/Plan 1. Elevated troponin 2. SVT 3. HTN 4. Dementia Continue conservative treatment with CCB, statin Pt will not benefit from a more aggressive approach given advanced dementia and no current symptoms suggesting unstable angina
[2017-12-25] MEDS: Sodium Chloride 0.9% 1,000 ML IV SCH ×2 (06:00→16:40)
[2017-12-25] MEDS: Levothyroxine Sodium 25 MCG TAB PO SCH (06:00)
[2017-12-25] MEDS: Levothyroxine Sodium 112 MCG TAB PO SCH (06:00)
--- NOTE | 2017-12-25 08:24 | PDOC.PN ---
- Subjective Encounter Start Date: 12/25/17 Encounter Start Time: 08:22 Subjective: no distress - Objective Resuscitation Status: Resuscitation Status FULL:Full Resuscitation MAR Reviewed: Yes Vital Signs & Weight: Vital Signs (12 hours) Temp Pulse Resp BP Pulse Ox 12/25/17 07:45 97.3 F L 104 H 28 H 92 L 12/25/17 07:35 97.3 F L 104 H 28 H 165/68 H 90 L 12/25/17 03:54 97.8 F 103 H 14 135/61 91 L 12/25/17 00:00 97.5 F L 99 16 155/61 H 92 L Weight Weight 137 lb 9.6 oz I&O: 12/24/17 12/25/17 12/26/17 06:59 06:59 06:59 Intake Total 1899 2948 Output Total 250 1150 Balance 1649 1798 Result Diagrams: 12/24/17 03:45 12/24/17 03:45 Additional Labs: Accuchecks 12/25/17 12/25/17 12/24/17 08:07 04:13 20:11 POC Glucose 189 H 203 H 181 H 12/24/17 12/24/17 16:43 10:43 POC Glucose 174 H 205 H Phys Exam - Physical Examination Neck: no JVD Respiratory: clear to auscultation bilateral Cardiovascular: no significant murmur, irregular Gastrointestinal: soft, positive bowel sounds Musculoskeletal: no edema Dx/Plan (1) Compression fracture of thoracic vertebra Code(s): S22.000A - WEDGE COMPRESSION FRACTURE OF UNSP THORACIC VERTEBRA, INIT Status: Acute Qualifiers: Encounter type: initial encounter (2) Atrial fibrillation Code(s): I48.91 - UNSPECIFIED ATRIAL FIBRILLATION Status: Chronic Qualifiers: Atrial fibrillation type: paroxysmal Qualified Code(s): I48.0 - Paroxysmal atrial fibrillation (3) Dementia Code(s): F03.90 - UNSPECIFIED DEMENTIA WITHOUT BEHAVIORAL DISTURBANCE Status: Chronic Qualifiers: Dementia type: unspecified type (4) Falls frequently Code(s): R29.6 - REPEATED FALLS Status: Chronic (5) Hypertension Code(s): I10 - ESSENTIAL (PRIMARY) HYPERTENSION Status: Chronic Qualifiers: Hypertension type: essential hypertension Qualified Code(s): I10 - Essential (primary) hypertension (6) Rheumatoid arthritis Code(s): M06.9 - RHEUMATOID ARTHRITIS, UNSPECIFIED Status: Chronic Qualifiers: Rheumatoid factor presence: unspecified presence Laterality: unspecified laterality (7) Elevated troponin Code(s): R74.8 - ABNORMAL LEVELS OF OTHER SERUM ENZYMES Status: Acute (8) NSTEMI (non-ST elevated myocardial infarction) Code(s): I21.4 - NON-ST ELEVATION (NSTEMI) MYOCARDIAL INFARCTION Status: Acute (9) SVT (supraventricular tachycardia) Code(s): I47.1 - SUPRAVENTRICULAR TACHYCARDIA Status: Acute - Plan improved, demand ishemia vs nstemi- agree with no intervention -: on anti bx for uti -: suspect leukocytosis due to nstemi -: change cardizem to po * .
--- NOTE | 2017-12-25 08:33 | PRG ---
DATE OF SERVICE: 12/25/2017 This morning she remains demented, did not answer any questions. at the bedside who says she is better. PHYSICAL EXAMINATION: VITAL SIGNS: Sats are 92 on room air, respiration 28, pulse 97, temperature 97.3, blood pressure 165 /68. GENERAL: She appears to be in no distress. CHEST: Decreased breath sounds, no wheezing. CARDIAC: Normal S1, S2. No gallops. ABDOMEN: Soft, no masses. Urine is growing E. coli sensitive to pretty much all the antibiotics. Baseline chest x-ray shows no acute infiltrates. IMPRESSION: 1. Supraventricular tachycardia. 2. Chronic obstructive pulmonary disease, bronchiectasis, chronic cough. 3. Severe dementia. 4. Urinary tract infection. PLAN: I will try and deescalate the antibiotics. She is on broad spectrum antibiotics, meropenem, w hich I would downsize. Otherwise, continue present supportive care and cardiac input. Pulmonary will follow while in the [facility].
--- NOTE | 2017-12-25 08:37 | PDOC.PN ---
- Subjective Encounter Start Date: 12/24/17 Encounter Start Time: 08:35 Subjective: overnite events noted - Objective Resuscitation Status: Resuscitation Status FULL:Full Resuscitation MAR Reviewed: Yes Vital Signs & Weight: Vital Signs (12 hours) Temp Pulse Resp BP Pulse Ox 12/25/17 07:45 97.3 F L 104 H 28 H 92 L 12/25/17 07:35 97.3 F L 104 H 28 H 165/68 H 90 L 12/25/17 03:54 97.8 F 103 H 14 135/61 91 L 12/25/17 00:00 97.5 F L 99 16 155/61 H 92 L Weight Weight 137 lb 9.6 oz I&O: 12/24/17 12/25/17 12/26/17 06:59 06:59 06:59 Intake Total 1899 2948 Output Total 250 1150 Balance 1649 1798 Result Diagrams: 12/24/17 03:45 12/24/17 03:45 Additional Labs: Accuchecks 12/25/17 12/25/17 12/24/17 08:07 04:13 20:11 POC Glucose 189 H 203 H 181 H 12/24/17 12/24/17 16:43 10:43 POC Glucose 174 H 205 H Radiology Reviewed by me: Yes (cxr- no chf or infiltrate) Phys Exam - Physical Examination Neck: no JVD Respiratory: clear to auscultation bilateral Cardiovascular: no significant murmur, irregular Gastrointestinal: soft, positive bowel sounds Musculoskeletal: no edema Dx/Plan (1) Compression fracture of thoracic vertebra Code(s): S22.000A - WEDGE COMPRESSION FRACTURE OF UNSP THORACIC VERTEBRA, INIT Status: Acute Qualifiers: Encounter type: initial encounter (2) Atrial fibrillation Code(s): I48.91 - UNSPECIFIED ATRIAL FIBRILLATION Status: Chronic Qualifiers: Atrial fibrillation type: paroxysmal Qualified Code(s): I48.0 - Paroxysmal atrial fibrillation (3) Dementia Code(s): F03.90 - UNSPECIFIED DEMENTIA WITHOUT BEHAVIORAL DISTURBANCE Status: Chronic Qualifiers: Dementia type: unspecified type (4) Falls frequently Code(s): R29.6 - REPEATED FALLS Status: Chronic (5) Hypertension Code(s): I10 - ESSENTIAL (PRIMARY) HYPERTENSION Status: Chronic Qualifiers: Hypertension type: essential hypertension Qualified Code(s): I10 - Essential (primary) hypertension (6) Rheumatoid arthritis Code(s): M06.9 - RHEUMATOID ARTHRITIS, UNSPECIFIED Status: Chronic Qualifiers: Rheumatoid factor presence: unspecified presence Laterality: unspecified laterality (7) Elevated troponin Code(s): R74.8 - ABNORMAL LEVELS OF OTHER SERUM ENZYMES Status: Acute (8) NSTEMI (non-ST elevated myocardial infarction) Code(s): I21.4 - NON-ST ELEVATION (NSTEMI) MYOCARDIAL INFARCTION Status: Acute (9) SVT (supraventricular tachycardia) Code(s): I47.1 - SUPRAVENTRICULAR TACHYCARDIA Status: Acute - Plan plan discussed w/ family on iv diltizem for SVT, AF -: no agressive intervention per cardiology -: on rocephin for UTI * .
[2017-12-25] MEDS: Lisinopril 20 MG TAB PO SCH (09:03)
[2017-12-25] MEDS: sulfaSALAzine 500 MG TAB PO SCH ×2 (09:03→22:33)
[2017-12-25] MEDS: Atorvastatin Calcium 10 MG TAB PO SCH (09:03)
[2017-12-25] MEDS: Metoprolol Tartrate 25 MG TAB PO SCH ×2 (09:03→22:26)
[2017-12-25] MEDS: Folic Acid 1 MG TAB PO SCH (09:03)
[2017-12-25] MEDS: predniSONE 1 MG TAB PO SCH (09:04)
[2017-12-25] MEDS: Amlodipine 5 MG TAB PO SCH (09:04)
[2017-12-25] MEDS: levETIRAcetam 500 mg/5 ml Oral Solution PO SCH ×2 (09:04→22:27)
[2017-12-25] MEDS: Potassium Chloride 10 MEQ TAB PO SCH ×2 (09:04→22:33)
[2017-12-25] MEDS: cefTRIAXone\\ROCEPHIN 1 GM in Sodium Chloride 0.9% 100 ML IVPB SCH (09:05)
[2017-12-25] MEDS: Ondansetron HCl/PF 4 MG/2 ML Vial SLOW IVP PRN (19:07)
[2017-12-25 20:13] LABS: #Lymphocytes 1.2 thou/uL (1.20-3.40); #Monocytes 0.9 thou/uL (0.11-0.59); #Neutrophils 14.1 thou/uL (1.40-6.50); %Eosinophils 0.1 % (0.0-10.0); %Lymphocytes 7.2 % (21.0-51.0); %Monocytes 5.3 % (0.0-10.0); %Neutrophils 87.3 % (42.0-75.0); Hemoglobin 13.5 g/dL (12.0-16.0); Mean Corpuscular Hemoglobin 35.9 pg (27.0-31.0); Mean Platelet Volume 7.4 fL (7.4-10.4); Platelet Count 294 thou/uL (130-400); RBC Distribution Width 14.2 % (11.5-14.5); Red Blood Cell (RBC) Count 3.77 mill/uL (4.20-5.40); White Blood Cell (WBC) Count 16.2 thou/uL (4.8-10.8)
[2017-12-25 20:46] LABS: Troponin I 1.902 ng/mL (< 0.028)
[2017-12-26] MEDS: Sodium Chloride 0.9% 1,000 ML IV SCH ×2 (00:34→10:35)
[2017-12-26 03:56] LABS: CO2 Tension 32.1 mmHg (35.0-45.0); pH, Arterial 7.48 (7.35-7.45)
[2017-12-26 03:57] LABS: Actual Bicarbonate (HCO3a) 23.1 mEq/L (22-28); Base Excess (BEa) 0.2 mEq/L (-2.0 to +3.0); Hemoglobin (Hb) 12.7 g/dL (12.0-16.0); O2 Tension (PaO2) 56.3 mmHg (> 60.0)
[2017-12-26 03:58] LABS: Calcium, Ionized 1.1 mmol/L (1.12-1.30); Carboxyhemoglobin (COHb) 1.3 gm% (0.0-3.0); Potassium - ABG Lab 4.1 mmol/L (3.70-5.30); Puncture Site RBR
[2017-12-26 03:59] LABS: ALV-art Gradient 260.075 (0-20)
--- NOTE | 2017-12-26 04:19 | PDOC.EVN ---
Event Note - Event Note Event Note: progressive hypoxia dec IVF, lasix 40mg IV x1, CTA
[2017-12-26] MEDS: Furosemide 40 MG/4 ML VIAL SLOW IVP SCH (04:35)
[2017-12-26] MEDS: Levothyroxine Sodium 125 MCG TAB PO SCH (05:40)
--- NOTE | 2017-12-26 05:47 | PDOC.CTH ---
Cardiology Progress Note - Subjective Pt with hypoxia noted overnight. CT scan confimred PE. - Objective Vital Signs Temp Pulse Resp BP Pulse Ox 12/26/17 04:00 97.3 F L 101 H 33 H 144/60 H 91 L 12/26/17 00:00 97.0 F L 112 H 22 H 154/49 H 95 12/25/17 20:00 97.4 F L 106 H 25 H 94 L 12/25/17 19:58 97.4 F L 106 H 25 H 170/68 H 97 Weight 144 lb 1.6 oz 12/24/17 12/25/17 12/26/17 06:59 06:59 06:59 Intake Total 1899 2948 3225 Output Total 250 1150 550 Balance 1649 1798 2675 - Physical Examination General/Neuro: other: (Not oriented) Neck: carotid US brisk, no JVD present Lungs: other: (mildly labored. Cotninues to take off NRB) Heart: other: (IRR) Abdomen: NT/ND Extremities: + femoral B - Labs Result Diagrams: 12/26/17 07:17 12/26/17 07:17 Troponin/CKMB CK-MB (CK-2) 5.1 ng/mL (0-6.6) 12/23/17 22:49 Troponin I 1.902 ng/mL (< 0.028) H* 12/25/17 20:06 - Assessment/Plan 1. Elevated troponin 2. SVT 3. HTN 4. Dementia 5. PE Change CCB 180mg QAM to 240mg QAM./ Increase if needed for better rate control Stop norvasc given she is on cardizem for rate control increase ACEI if BP increases conservative treatment Discussed DNR with yesterday. He will think about options. Not ready at this time Loveonx aded for recent PE (SCD were in place) Will need ACT terminal carman
[2017-12-26] MEDS ORDERED: Heparin 25,000 units/D5W 500 ML IVPB SCH (06:30)
[2017-12-26] MEDS ORDERED: Heparin 10,000 UNITS/ 10 ML VIAL SLOW IVP SCH (06:30)
[2017-12-26 07:36] LABS: Hemoglobin 13.2 g/dL (12.0-16.0); Platelet Count 289 thou/uL (130-400)
[2017-12-26 07:46] LABS: ALT (SGPT) 12 U/L (8-55); AST (SGOT) 26 U/L (5-34); Alkaline Phosphatase 71 U/L (40-150); Anion Gap 14 mmol/L (10-20); BUN (Urea Nitrogen) 37 mg/dL (9.8-20.1); Bilirubin, Total 0.5 mg/dL (0.2-1.2); Calc. Creatinine Clearance 45 mL/min (70-130); Carbon Dioxide 24 mmol/L (23-31); Chloride 105 mmol/L (98-107); Estimated GFR-MDRD 53; Glucose 185 mg/dL (83-110); Potassium 3.9 mmol/L (3.5-5.1); Sodium 139 mmol/L (136-145)
--- NOTE | 2017-12-26 08:30 | RAD ---
SEMIUPRIGHT PORTABLE CHEST ONE VIEW: HISTORY: An 82-year-old female with aspiration, shortness of breath, and chest pain. COMPARISON: 12/23/2017 FINDINGS: There has developed some mostly interstitial parenchymal changes throughout the right lung, particula rly the mid and right lower lobes. Bilateral pleural effusions. Minimal left lower lobe parenchymal changes. The left upper lobe remains clear. IMPRESSION: Interval development of small bilateral pleural effusions and bilateral mid and lower lung zone, most ly interstitial, parenchymal changes. The possibilities include that of some degree of interstitial edema or bilateral atypical pneumonia or pneumonitis. Continue short-term followup. POS: [facility]
--- NOTE | 2017-12-26 08:59 | CT ---
PRELIMINARY REPORT/[facility]/EMERGENCY AFTER HOURS PROCEDURE: Addendum created by Ran Vallejo MD on 12/26/2017 6:21 AM Central Time ([place] & [place]) per operations te am, Dr. Arriaga is aware of report and has no questions at 12/26/2017 6:18 AM CDT. Initial Report created on 12/26/2017 5:50 AM Central Time ([place] & [place]) EXAM: CT Angiography Chest With Intravenous Contrast EXAM DATE/TIME: Exam ordered 12/26/2017 4:49 AM CLINICAL HISTORY: 82 years old, female; Signs and symptoms; Dyspnea and shortness of breath; Patient HX: Eval for possi ble pe vs aspiration; Pt C/O SOB and chest pain TECHNIQUE: Axial computed tomographic angiography images of the chest with intravenous contrast using pulmonary embolism protocol. MIP reconstructed images were created and reviewed. COMPARISON: No relevant prior studies available. FINDINGS: Pulmonary arteries: There is a small filling defect within a LEFT upper lobe pulmonary artery branch compatible with pulmonary embolism. Aorta: No acute findings. No thoracic aortic aneurysm. Lungs: See below. Pleural space: There are small bilateral pleural effusions with compressive atelectasis of the lung b ases. No pneumothorax. Heart: Normal. No cardiomegaly. No significant pericardial effusion. No evidence of RV dysfunction. Mediastinum: There is fluid seen within the esophagus suggestive of reflux. Bones/joints: There are healed left rib fractures. No dislocation. Soft tissues: Normal. Lymph nodes: Normal. No enlarged lymph nodes. Stomach and bowel: There is distention of the stomach which is incompletely visualized. Intraperitoneal space: There is partially visualized small RIGHT upper quadrant ascites. IMPRESSION: 1. There is a small filling defect within a LEFT upper lobe pulmonary artery branch compatible with p ulmonary embolism. 2. There are small bilateral pleural effusions with compressive atelectasis of the lung bases. 3. There is fluid seen within the esophagus suggestive of reflux. Small bowel obstruction is not imag ed however clinical correlation for obstruction is advised. Thank you for allowing us to participate in the care of your patient. Dictated and Authenticated by: Ran Vallejo MD 12/26/2017 5:50 AM Central Time ([place] & [place]) FINAL REPORT CT PULMONARY ANGIOGRMA WITH IV CONTRAST AND 3D POSTPROCESSING: I agree with the preliminary report given by Dr. Ran Vallejo of [facility]. POS: [facility]
--- NOTE | 2017-12-26 09:48 | PRG ---
DATE OF SERVICE: 12/26/2017 This morning she is awake, alert, responsive, still demented. She denies any pain, denied any shortn ess of breath. Last night she was hypoxic, tachypneic and tachycardic. A CT of the chest shows a si ngle pulmonary defect in the left upper lobe branch. A small pleural effusion. I switched her over to nasal O2. PHYSICAL EXAMINATION: VITAL SIGNS: Her sats are about 96%, respirations 22, temperature 97, blood pressure is 170/80. CHEST: Chest reveals decreased breath sounds bilaterally. CARDIAC: Normal S1, S2. No gallops. ABDOMEN: Soft, no masses. LABORATORY DATA: White count 16,000, H&H 13 and 42, platelet count normal. IMPRESSION: 1. Urinary tract infection. 2. Azotemia. 3. Small pulmonary emboli. 4. Bilateral pleural effusion. PLAN: The patient is on ceftriaxone, Lasix, neb treatments, supportive care and PT. I switched her over to Lovenox. I am going to get an ultrasound of both legs. Discussed with the at length regarding ongoing issues. He is going to discuss with his famil y regarding code status.
[2017-12-26] MEDS: levETIRAcetam 500 mg/5 ml Oral Solution PO SCH ×2 (10:31→22:07)
[2017-12-26] MEDS: predniSONE 1 MG TAB PO SCH ×2 (10:32→11:29)
[2017-12-26] MEDS: sulfaSALAzine 500 MG TAB PO SCH ×3 (10:33→22:08)
[2017-12-26] MEDS: Potassium Chloride 10 MEQ TAB PO SCH ×3 (10:34→22:08)
[2017-12-26] MEDS: Folic Acid 1 MG TAB PO SCH ×2 (10:34→11:04)
[2017-12-26] MEDS: Lisinopril 20 MG TAB PO SCH ×2 (10:34→11:05)
[2017-12-26] MEDS: Atorvastatin Calcium 10 MG TAB PO SCH ×2 (10:34→11:04)
[2017-12-26] MEDS: cefTRIAXone\\ROCEPHIN 1 GM in Sodium Chloride 0.9% 100 ML IVPB SCH (10:35)
[2017-12-26] MEDS: Metoprolol Tartrate 25 MG TAB PO SCH ×3 (10:36→21:51)
--- NOTE | 2017-12-26 11:51 | RAD ---
PORTABLE CHEST: INDICATION: Pneumonia. Followup. COMPARISON: 12/26/17. FINDINGS: There continues to be evidence of bibasilar atelectasis and/or infiltrates. Heart is mildly prominen t in size. Vascular markings upper normal and stable. Small effusions cannot be excluded. IMPRESSION: Bibasilar atelectasis and/or infiltrates which appear stable from prior exam. These findings were al so noted on chest CT of 12/26/17. POS: [facility]
[2017-12-26 12:08] LABS: CO2 Tension 28.8 mmHg (35.0-45.0); pH, Arterial 7.49 (7.35-7.45)
[2017-12-26 12:09] LABS: Actual Bicarbonate (HCO3a) 21.6 mEq/L (22-28); Base Excess (BEa) -0.7 mEq/L (-2.0 to +3.0); Carboxyhemoglobin (COHb) 1.2 gm% (0.0-3.0); Hemoglobin (Hb) 13.1 g/dL (12.0-16.0); O2 Tension (PaO2) 70.8 mmHg (> 60.0)
[2017-12-26 12:10] LABS: Calcium, Ionized 1.1 mmol/L (1.12-1.30); Potassium - ABG Lab 4.1 mmol/L (3.70-5.30); Puncture Site RBA
[2017-12-26] MEDS ORDERED: ISOVUE-370 76%-LOCM 1 ML ONE (13:29)
--- NOTE | 2017-12-26 14:42 | ULT ---
BILATERAL LOWER EXTREMITY VENOUS ULTRASOUND WITH DOPPLER: HISTORY: The patient has a known pulmonary artery embolism. COMPARISON: None. TECHNIQUE: Almodovar scale, color flow, Doppler imaging, and spectral waveform analysis is performed of the left and right lower extremity venous system. FINDINGS: Left lower extremity: There is compressibility, presence of flow, and augmentation in the common femoral vein, femoral vein , popliteal vein. There is flow in the greater saphenous vein, profunda vein, and posterior tibial v ein. Right lower extremity: There is compressibility and flow in the common femoral vein and proximal femoral vein. There is par tial compressibility of the mid to distal femoral vein and popliteal vein. There is some echogenic m aterial present. Flow is still noted. Partial thrombosis is noted. There is flow in the posterior tibial vein, greater saphenous vein, and profunda vein. IMPRESSION: Partial thrombosis (nonocclusive thrombus) in the right lower extremity deep venous system. POS: [facility]
--- NOTE | 2017-12-26 15:07 | EKG ---
Test Reason : STAT Blood Pressure : / mmHG Vent. Rate : 188 BPM Atrial Rate : 197 BPM P-R Int : 000 ms QRS Dur : 090 ms QT Int : 258 ms P-R-T Axes : 000 -08 091 degrees QTc Int : 456 ms Supraventricular tachycardia Inferior infarct , possibly acute Anterior infarct , new ACUTE AL / STEMI vs old AL with aneurysm Consider right ventricular involvement in acute inferior infarct Abnormal ECG When compared with ECG of 21-DEC-2017 12:15, (Unconfirmed) Vent. rate has increased BY 101 BPM Acute Anterior infarct is now Present Inferior infarct is now Present Confirmed by PETERSON AVILES, RICHARD ([id number]) on 12/26/2017 3:06:42 PM Referred By: SHENG Confirmed By:RICHARD WINKLER MD
[2017-12-26] MEDS: Cefepime 1 GM in Sodium Chloride 0.9% 100 ML IVPB SCH (21:41)
[2017-12-26] MEDS: Enoxaparin Sodium 60 MG/0.6 ML SYRINGE SC SCH (21:42)
[2017-12-26] MEDS: hydrALAZINE 20 MG/ML VIAL SLOW IVP PRN (21:42)
[2017-12-26] MEDS ORDERED: Acetaminophen 650 MG in Premix Bag 1 BAG IVPB PRN (22:21)
[2017-12-26] MEDS ORDERED: Acetaminophen 1,000 MG in Premix Bag 1 BAG IVPB PRN (22:30)
[2017-12-27 04:29] LABS: Anion Gap 16 mmol/L (10-20); BUN (Urea Nitrogen) 52 mg/dL (9.8-20.1); Calc. Creatinine Clearance 31 mL/min (70-130); Calcium 7.9 mg/dL (7.8-10.44); Carbon Dioxide 21 mmol/L (23-31); Chloride 109 mmol/L (98-107); Estimated GFR-MDRD 35; Glucose 221 mg/dL (83-110); Potassium 4.1 mmol/L (3.5-5.1); Sodium 142 mmol/L (136-145)
[2017-12-27] MEDS: Furosemide 40 MG/4 ML VIAL SLOW IVP SCH (04:42)
[2017-12-27 04:43] LABS: Band 14 % (5-11); Hemoglobin 12.1 g/dL (12.0-16.0); MDiff Complete? YES; Macrocytosis SLIGHT = 6-15 cells (100X) (0-5/hpf); Mean Corpuscular HGB CONC 32.6 g/dL (32.0-36.0); Monocytes 4 % (0-10); Neutrophil 82 % (42-75); PLT Morphology Comment Appears Adequate; Platelet Count 283 thou/uL (130-400); RBC Distribution Width 14.2 % (11.5-14.5); Red Blood Cell (RBC) Count 3.36 mill/uL (4.20-5.40); White Blood Cell (WBC) Count 16.2 thou/uL (4.8-10.8)
[2017-12-27] MEDS: Levothyroxine Sodium 25 MCG TAB PO SCH (07:09)
[2017-12-27] MEDS: Levothyroxine Sodium 112 MCG TAB PO SCH (07:09)
--- NOTE | 2017-12-27 08:08 | RAD ---
PORTABLE CHEST: HISTORY: Shortness of breath. Pleural effusion. COMPARISON: 12/26/17. FINDINGS: Small bilateral effusions. Bibasilar atelectasis and/or infiltrates. The right basilar infiltrates are more prominent today. Upper lung merrill remain clear and unchanged. POS: [facility]
[2017-12-27] MEDS: Cefepime 1 GM in Sodium Chloride 0.9% 100 ML IVPB SCH ×2 (10:05→21:43)
[2017-12-27] MEDS: Sodium Chloride 0.9% 1,000 ML IV SCH ×2 (10:06→19:16)
[2017-12-27] MEDS: Enoxaparin Sodium 60 MG/0.6 ML SYRINGE SC SCH ×2 (10:17→21:45)
[2017-12-27] MEDS: Atorvastatin Calcium 10 MG TAB PO SCH (11:03)
[2017-12-27] MEDS: Folic Acid 1 MG TAB PO SCH (11:04)
[2017-12-27] MEDS: levETIRAcetam 500 mg/5 ml Oral Solution PO SCH ×2 (11:04→21:45)
[2017-12-27] MEDS: Lisinopril 20 MG TAB PO SCH (11:04)
[2017-12-27] MEDS: Metoprolol Tartrate 25 MG TAB PO SCH ×2 (11:05→21:46)
[2017-12-27] MEDS: Potassium Chloride 10 MEQ TAB PO SCH (11:05)
[2017-12-27] MEDS: sulfaSALAzine 500 MG TAB PO SCH ×2 (11:06→21:45)
--- NOTE | 2017-12-27 11:06 | PDOC.PN ---
- Subjective Encounter Start Date: 12/26/17 Encounter Start Time: 11:00 Patient is seen today, acutely shob with Bipap, Pt at bedside, is not able to make a decision on melissa Singh for rest of family members - Objective Resuscitation Status: Resuscitation Status FULL:Full Resuscitation MAR Reviewed: Yes Vital Signs & Weight: Vital Signs (12 hours) Temp Pulse Resp BP Pulse Ox 12/27/17 11:00 97.4 F L 120 H 39 H 130/58 L 90 L 12/27/17 08:57 115 H 38 H 95 12/27/17 08:55 106 H 38 H 95 12/27/17 08:00 97.6 F 105 H 31 H 96 12/27/17 07:25 97.6 F 105 H 31 H 98/56 L 96 12/27/17 04:00 97.8 F 109 H 33 H 132/50 L 98 12/27/17 00:01 109 H 25 H 97 12/27/17 00:00 97.3 F L 118 H 25 H 118/48 L 99 Weight Weight 145 lb 11.2 oz I&O: 12/26/17 12/27/17 12/28/17 06:59 06:59 06:59 Intake Total 3225 1300 Output Total 875 400 Balance 2350 900 Result Diagrams: 12/27/17 03:35 12/27/17 03:35 Additional Labs: Accuchecks 12/27/17 12/27/17 12/26/17 10:20 05:56 19:53 POC Glucose 182 H 210 H 182 H 12/26/17 10:39 POC Glucose 172 H Radiology Reviewed by me: Yes Phys Exam - Physical Examination HEENT: PERRLA, moist MMs Neck: no nodes, no JVD Respiratory: wheezing present Cardiovascular: RRR, no significant murmur Gastrointestinal: non-tender Musculoskeletal: no edema, pulses present Neurological: non-focal, normal sensation, moves all 4 limbs Lymphatic: no nodes Skin: no rash Dx/Plan (1) Pulmonary embolism Code(s): I26.99 - OTHER PULMONARY EMBOLISM WITHOUT ACUTE COR PULMONALE Status : Acute Comment: Pt stated on Lovenox 1mg /kg, pulmonary consulted. pt very unstbale with acute hypoxia. (2) Acute and chronic respiratory failure with hypoxia Code(s): J96.21 - ACUTE AND CHRONIC RESPIRATORY FAILURE WITH HYPOXIA Status: Acute Comment: Pt on bipap, pending ABG, pt is very drowsy not tolerating Bipap, not sure about if to intubate or no. Chest xrasy showed bibasilar infiltrates. (3) NSTEMI (non-ST elevated myocardial infarction) Code(s): I21.4 - NON-ST ELEVATION (NSTEMI) MYOCARDIAL INFARCTION Status: Acute Comment: Pt has PE, likely contributing to Demand ischemia. Pt on Aspirin/ BB, Anticoagulation with lovenox. (4) SVT (supraventricular tachycardia) Code(s): I47.1 - SUPRAVENTRICULAR TACHYCARDIA Status: Acute Comment: Likely from PE. (5) Hyponatremia Code(s): E87.1 - HYPO-OSMOLALITY AND HYPONATREMIA Status: Acute (6) Atrial fibrillation Code(s): I48.91 - UNSPECIFIED ATRIAL FIBRILLATION Status: Chronic Qualifiers: Atrial fibrillation type: paroxysmal Qualified Code(s): I48.0 - Paroxysmal atrial fibrillation (7) Dementia Code(s): F03.90 - UNSPECIFIED DEMENTIA WITHOUT BEHAVIORAL DISTURBANCE Status: Chronic Qualifiers: Dementia type: unspecified type (8) Falls frequently Code(s): R29.6 - REPEATED FALLS Status: Chronic - Plan cont current plan of care, plan discussed w/ family, continue antibiotics, PT/OT , access services librarian, respiratory therapy, incentive spirometry, DVT proph w/ lovenox * . Review of Systems - Review of Systems Other: Pt very drowsy and Altered, unable to obtain ROS. - Medications/Allergies Allergies/Adverse Reactions: Allergies Allergy/AdvReac Type Severity Reaction Status Date / Time Penicillins Allergy Mild Verified 12/25/15 23:07 Medications: Current Medications Acetaminophen (Tylenol) 650 mg PO Q4H PRN PRN Reason: Headache/Fever or Pain Hydrocodone Bitart/Acetaminophen ([place] 5/325) 1 tab PO Q4H PRN PRN Reason: Moderate to Severe Pain (6-10) Last Admin: 12/23/17 22:12 Dose: 1 tab Albuterol/Ipratropium (Duoneb) 3 ml NEB [id number] DELIO Last Admin: 12/27/17 08:55 Dose: 3 ml Aspirin (Aspirin Chewable) 81 mg PO DAILY [facility] Last Admin: 12/26/17 11:04 Dose: Not Given Atorvastatin Calcium (Lipitor) 10 mg PO DAILY [facility] Last Admin: 12/26/17 11:04 Dose: Not Given Clonidine (Catapres) 0.1 mg PO Q6HR PRN PRN Reason: Hypertension Last Admin: 12/22/17 04:21 Dose: 0.1 mg Dextrose/Water (Dextrose 50%) 25 gm SLOW IVP PRN PRN PRN Reason: Hypoglycemia Diltiazem HCl (Cardizem Cd) 240 mg PO DAILY [facility] Enoxaparin Sodium (Lovenox) 60 mg SC 0900,2100 [facility] Last Admin: 12/27/17 10:17 Dose: 60 mg Folic Acid (Folvite) 1 mg PO DAILY [facility] Last Admin: 12/26/17 11:04 Dose: Not Given Glucagon (Glucagon) 1 mg IM PRN PRN PRN Reason: Hypoglycemia Hydralazine HCl (Apresoline) 10 mg SLOW IVP Q3H PRN PRN Reason: .SBP >170 Last Admin: 12/26/17 21:42 Dose: 10 mg Dextrose/Water (D5w) 1,000 mls @ 0 mls/hr IV .Q0M PRN PRN Reason: Hypoglycemia Sodium Chloride (Normal Saline 0.9%) 1,000 mls @ 50 mls/hr IV .Q20H [facility] Last Admin: 12/27/17 10:06 Dose: 1,000 mls Cefepime HCl 1 gm/ Sodium (Chloride) 100 mls @ 200 mls/hr IVPB Q12HR [facility] Last Admin: 12/27/17 10:05 Dose: 100 mls Acetaminophen 1,000 mg/ Device 100 mls @ 400 mls/hr IVPB Q8H PRN PRN Reason: FEVER/ Mild pain (1-3) Stop: 12/27/17 22:22 Last Admin: 12/26/17 22:30 Dose: 100 mls Insulin Human Regular (Humulin R) 0 units SC .MILD SLIDING SCALE PRN PRN Reason: Mild Correctional Scale Insulin Human Regular (Humulin R) 0 units SC .BEDTIME SLIDING SC PRN PRN Reason: Bedtime Correctional Scale Last Admin: 12/24/17 00:32 Dose: 4 unit Levetiracetam (Keppra Oral Solution) 500 mg PO BID [facility] Last Admin: 12/26/17 22:07 Dose: 500 mg Levothyroxine Sodium (Synthroid) 125 mcg PO MWF@0600 [facility] Last Admin: 12/26/17 05:40 Dose: Not Given Levothyroxine Sodium (Synthroid) 112 mcg PO SuTuThSa@0600 [facility] Last Admin: 12/27/17 07:09 Dose: Not Given Levothyroxine Sodium (Synthroid) 25 mcg PO SuTuThSa@0600 [facility] Last Admin: 12/27/17 07:09 Dose: Not Given Lisinopril (Zestril) 20 mg PO DAILY [facility] Last Admin: 12/26/17 11:05 Dose: Not Given Methylprednisolone Sodium Succinate (Solu-Medrol) 40 mg IVP BID [facility] Last Admin: 12/27/17 10:18 Dose: 40 mg Metoprolol Tartrate (Lopressor) 25 mg PO BID [facility] Last Admin: 12/26/17 21:51 Dose: 25 mg Miscellaneous Medication (Pharmacy To Dose) 1 each IVPB PRN PRN PRN Reason: Pharmacy to dose Ondansetron HCl (Zofran) 4 mg SLOW IVP Q2H PRN PRN Reason: Nausea/Vomiting Last Admin: 12/25/17 19:07 Dose: 4 mg Pantoprazole Sodium (Protonix) 40 mg PO DAILY [facility] Last Admin: 12/26/17 11:05 Dose: Not Given Potassium Chloride (Klor-Con 10) 10 meq PO BID [facility] Last Admin: 12/26/17 22:08 Dose: Not Given Sodium Chloride (Flush - Normal Saline) 10 ml IVF Q12HR [facility] Last Admin: 12/27/17 10:06 Dose: 10 ml Sodium Chloride (Flush - Normal Saline) 10 ml IVF PRN PRN PRN Reason: Saline Flush Sulfasalazine (Azulfidine) 500 mg PO BID [facility] Last Admin: 12/26/17 22:08 Dose: Not Given
--- NOTE | 2017-12-27 12:17 | EKG ---
Test Reason : Blood Pressure : / mmHG Vent. Rate : 087 BPM Atrial Rate : 087 BPM P-R Int : 172 ms QRS Dur : 084 ms QT Int : 386 ms P-R-T Axes : 081 -20 014 degrees QTc Int : 464 ms Normal sinus rhythm Minimal voltage criteria for LVH, may be normal variant Borderline ECG Confirmed by REAL AVERY ([id number]), advertising editor BRANDAN ROBLES ([id number] on 12/27/2017 12:16:44 PM Referred By: Confirmed By:REAL AVERY
--- NOTE | 2017-12-27 12:31 | PDOC.PN ---
- Subjective Encounter Start Date: 12/27/17 Encounter Start Time: 11:30 Patient is seen today, alert but in severe resp distress, Explained to the Son, her prognosis, is poor with high oxygen needs and she is getting tired, and daughter came up with Decision No CPR but ok for Intubation. - Objective Resuscitation Status: Resuscitation Status FULL:Full Resuscitation MAR Reviewed: Yes Vital Signs & Weight: Vital Signs (12 hours) Temp Pulse Resp BP BP Pulse Ox 12/27/17 11:04 163/67 H 12/27/17 11:03 120 H 12/27/17 11:00 97.4 F L 120 H 39 H 130/58 L 90 L 12/27/17 08:57 115 H 38 H 95 12/27/17 08:55 106 H 38 H 95 12/27/17 08:00 97.6 F 105 H 31 H 96 12/27/17 07:25 97.6 F 105 H 31 H 98/56 L 96 12/27/17 04:00 97.8 F 109 H 33 H 132/50 L 98 Weight Weight 145 lb 11.2 oz I&O: 12/26/17 12/27/17 12/28/17 06:59 06:59 06:59 Intake Total 3225 1300 Output Total 875 400 Balance 2350 900 Result Diagrams: 12/27/17 03:35 12/27/17 03:35 Additional Labs: Accuchecks 12/27/17 12/27/17 12/26/17 10:20 05:56 19:53 POC Glucose 182 H 210 H 182 H Radiology Reviewed by me: Yes Phys Exam - Physical Examination HEENT: PERRLA, moist MMs Neck: no nodes, no JVD Respiratory: no wheezing, no rales Cardiovascular: RRR, no significant murmur Gastrointestinal: non-tender Musculoskeletal: no edema, pulses present Neurological: non-focal, normal sensation Dx/Plan (1) Pulmonary embolism Code(s): I26.99 - OTHER PULMONARY EMBOLISM WITHOUT ACUTE COR PULMONALE Status : Acute Comment: Pt stated on Lovenox 1mg /kg, pulmonary consulted. pt very unstbale with acute hypoxia. (2) Acute and chronic respiratory failure with hypoxia Code(s): J96.21 - ACUTE AND CHRONIC RESPIRATORY FAILURE WITH HYPOXIA Status: Acute Comment: Pt on bipap, pending ABG, pt is very drowsy not tolerating Bipap, OK to Intubate but No CPR stated by MPOA her . (3) NSTEMI (non-ST elevated myocardial infarction) Code(s): I21.4 - NON-ST ELEVATION (NSTEMI) MYOCARDIAL INFARCTION Status: Acute Comment: Pt has PE, likely contributing to Demand ischemia. Pt on Aspirin/ BB, Anticoagulation with lovenox. (4) SVT (supraventricular tachycardia) Code(s): I47.1 - SUPRAVENTRICULAR TACHYCARDIA Status: Acute Comment: Likely from PE. (5) Hyponatremia Code(s): E87.1 - HYPO-OSMOLALITY AND HYPONATREMIA Status: Acute (6) Atrial fibrillation Code(s): I48.91 - UNSPECIFIED ATRIAL FIBRILLATION Status: Chronic Qualifiers: Atrial fibrillation type: paroxysmal Qualified Code(s): I48.0 - Paroxysmal atrial fibrillation (7) Dementia Code(s): F03.90 - UNSPECIFIED DEMENTIA WITHOUT BEHAVIORAL DISTURBANCE Status: Chronic Qualifiers: Dementia type: unspecified type (8) Falls frequently Code(s): R29.6 - REPEATED FALLS Status: Chronic - Plan cont current plan of care, plan discussed w/ family, gonzalez catheter, continue antibiotics, social professionals, respiratory therapy, DVT proph w/lovenox * . Review of Systems - Review of Systems Eyes: negative: Pain, Vision Change, Conjunctivae Inflammation, Eyelid Inflammation, Redness, Other ENT: negative: Ear Pain, Ear Discharge, Nose Pain, Nose Discharge, Nose Congestion, Mouth Pain, Mouth Swelling, Throat Pain, Throat Swelling, Other Respiratory: negative: Cough, Dry, Shortness of Breath, Hemoptysis, SOB with Excertion, Pleuritic Pain, Sputum, Wheezing Cardiovascular: negative: chest pain, palpitations, orthopnea, paroxysmal nocturnal dyspnea, edema, light headedness, other Gastrointestinal: negative: Nausea, Vomiting, Abdominal Pain, Diarrhea, Constipation, Melena, Hematochezia, Other Musculoskeletal: negative: Neck Pain, Shoulder Pain, Arm Pain, Back Pain, Hand Pain, Leg Pain, Foot Pain, Other - Medications/Allergies Allergies/Adverse Reactions: Allergies Allergy/AdvReac Type Severity Reaction Status Date / Time Penicillins Allergy Mild Verified 12/25/15 23:07 Medications: Current Medications Acetaminophen (Tylenol) 650 mg PO Q4H PRN PRN Reason: Headache/Fever or Pain Hydrocodone Bitart/Acetaminophen ([place]yler 5/325) 1 tab PO Q4H PRN PRN Reason: Moderate to Severe Pain (6-10) Last Admin: 12/23/17 22:12 Dose: 1 tab Albuterol/Ipratropium (Duoneb) 3 ml NEB [id number] [facility] Last Admin: 12/27/17 08:55 Dose: 3 ml Aspirin (Aspirin Chewable) 81 mg PO DAILY [facility] Last Admin: 12/27/17 11:03 Dose: Not Given Atorvastatin Calcium (Lipitor) 10 mg PO DAILY [facility] Last Admin: 12/27/17 11:03 Dose: Not Given Clonidine (Catapres) 0.1 mg PO Q6HR PRN PRN Reason: Hypertension Last Admin: 12/22/17 04:21 Dose: 0.1 mg Dextrose/Water (Dextrose 50%) 25 gm SLOW IVP PRN PRN PRN Reason: Hypoglycemia Diltiazem HCl (Cardizem Cd) 240 mg PO DAILY [facility] Last Admin: 12/27/17 11:03 Dose: Not Given Enoxaparin Sodium (Lovenox) 60 mg SC 0900,2100 [facility] Last Admin: 12/27/17 10:17 Dose: 60 mg Folic Acid (Folvite) 1 mg PO DAILY [facility] Last Admin: 12/27/17 11:04 Dose: Not Given Glucagon (Glucagon) 1 mg IM PRN PRN PRN Reason: Hypoglycemia Hydralazine HCl (Apresoline) 10 mg SLOW IVP Q3H PRN PRN Reason: .SBP >170 Last Admin: 12/26/17 21:42 Dose: 10 mg Dextrose/Water (D5w) 1,000 mls @ 0 mls/hr IV .Q0M PRN PRN Reason: Hypoglycemia Sodium Chloride (Normal Saline 0.9%) 1,000 mls @ 50 mls/hr IV .Q20H [facility] Last Admin: 12/27/17 10:06 Dose: 1,000 mls Cefepime HCl 1 gm/ Sodium (Chloride) 100 mls @ 200 mls/hr IVPB Q12HR [facility] Last Admin: 12/27/17 10:05 Dose: 100 mls Acetaminophen 1,000 mg/ Device 100 mls @ 400 mls/hr IVPB Q8H PRN PRN Reason: FEVER/ Mild pain (1-3) Stop: 12/27/17 22:22 Last Admin: 12/26/17 22:30 Dose: 100 mls Insulin Human Regular (Humulin R) 0 units SC .MILD SLIDING SCALE PRN PRN Reason: Mild Correctional Scale Insulin Human Regular (Humulin R) 0 units SC .BEDTIME SLIDING SC PRN PRN Reason: Bedtime Correctional Scale Last Admin: 12/24/17 00:32 Dose: 4 unit Levetiracetam (Keppra Oral Solution) 500 mg PO BID [facility] Last Admin: 12/27/17 11:04 Dose: Not Given Levothyroxine Sodium (Synthroid) 125 mcg PO MWF@0600 [facility] Last Admin: 12/26/17 05:40 Dose: Not Given Levothyroxine Sodium (Synthroid) 112 mcg PO SuTuThSa@0600 [facility] Last Admin: 12/27/17 07:09 Dose: Not Given Levothyroxine Sodium (Synthroid) 25 mcg PO SuTuThSa@0600 [facility] Last Admin: 12/27/17 07:09 Dose: Not Given Lisinopril (Zestril) 20 mg PO DAILY [facility] Last Admin: 12/27/17 11:04 Dose: Not Given Methylprednisolone Sodium Succinate (Solu-Medrol) 40 mg IVP BID [facility] Last Admin: 12/27/17 10:18 Dose: 40 mg Metoprolol Tartrate (Lopressor) 25 mg PO BID [facility] Last Admin: 12/27/17 11:05 Dose: Not Given Miscellaneous Medication (Pharmacy To Dose) 1 each IVPB PRN PRN PRN Reason: Pharmacy to dose Ondansetron HCl (Zofran) 4 mg SLOW IVP Q2H PRN PRN Reason: Nausea/Vomiting Last Admin: 12/25/17 19:07 Dose: 4 mg Pantoprazole Sodium (Protonix) 40 mg PO DAILY [facility] Last Admin: 12/27/17 11:05 Dose: Not Given Potassium Chloride (Klor-Con 10) 10 meq PO BID [facility] Last Admin: 12/27/17 11:05 Dose: Not Given Sodium Chloride (Flush - Normal Saline) 10 ml IVF Q12HR [facility] Last Admin: 12/27/17 10:06 Dose: 10 ml Sodium Chloride (Flush - Normal Saline) 10 ml IVF PRN PRN PRN Reason: Saline Flush Sulfasalazine (Azulfidine) 500 mg PO BID [facility] Last Admin: 12/27/17 11:06 Dose: Not Given
--- NOTE | 2017-12-27 14:26 | PRG ---
DATE OF SERVICE: 12/27/2017 SUBJECTIVE: Stefania remains in noninvasive ventilation. OBJECTIVE: VITAL SIGNS: 90% on FiO2. Sats are barely 95, respirations 38, pulse 115, temperature is 96, blood pressure 98/56. GENERAL: Awake, alert, and responsive. Denies difficulty breathing. CHEST: No wheezing or crackles. CARDIAC: Normal S1 and S2. No gallops. ABDOMEN: Soft, no masses. LABORATORY DATA: White count 16,000, H and H 12 and 37, platelet count is normal. Creatinine is 1.4 3 and BUN is elevated at 52, slightly prerenal. Chest x-ray surprisingly still does not show any obv ious pneumonia, some atelectasis, small pleural effusion. IMPRESSION: 1. Respiratory failure, small pulmonary emboli. 2. Supraventricular tachycardia. 3. Partial thrombus, right lower extremity. 4. Severe hypoxemia. I am kind of surprised of the intensity of hypoxemia with a very small pulmona ry emboli. No obvious pneumonia. PLAN: Continue steroids. Continue nebulizer treatments. Continue antibiotics. We will follow. So far, her wants a FULL CODE.
[2017-12-27] MEDS: Ondansetron HCl/PF 4 MG/2 ML Vial SLOW IVP PRN (15:24)
[2017-12-27] MEDS ORDERED: Midazolam HCl 2 mg/2 ml Vial ONE (17:21)
[2017-12-27] MEDS ORDERED: fentaNYL Citrate/PF 2,000 MCG in Sodium Chloride 0.9% 60 ML IV SCH (17:38)
[2017-12-27] MEDS ORDERED: Lorazepam 2 MG/ML VIAL SLOW IVP PRN (17:38)
[2017-12-27] MEDS ORDERED: DISCONTINUE PREVIOUS NARCOTIC PAIN MEDICATIONS AND BENZODIAZEPINES FS SCH (17:38)
[2017-12-27] MEDS ORDERED: Propofol BOLUS 1,000 MG/100 ML VIAL IV PRN (17:38)
[2017-12-27] MEDS ORDERED: Propofol 1,000 MG/100 ML VIAL IV PRN (17:38)
[2017-12-27] MEDS ORDERED: Fentanyl BOLUS 250 ML IVPB PRN (17:38)
[2017-12-27] MEDS ORDERED: Ventilator Sedation Protocol 1 EACH FS SCH (17:45)
--- NOTE | 2017-12-27 18:11 | RAD ---
PORTABLE CHEST: 12/27/17 at 5:31 p.m. Comparison made to film earlier today at 5:40 a.m. INDICATIONS: On ventilator. Shortness of breath. FINDINGS/IMPRESSION: ET tube is now in place. NG tube is in place. The ET tube is above jamila. There is now new confluent alveolar infiltrate in the right upper lung. Increasing infiltrate in the right lower lung. Small bilateral effusions and bibasilar atelectasis. POS: [facility]
[2017-12-27 18:14] LABS: Actual Bicarbonate (HCO3a) 17.8 mEq/L (22-28); Base Excess (BEa) -6.8 mEq/L (-2.0 to +3.0); CO2 Tension 33.1 mmHg (35.0-45.0); O2 Tension (PaO2) 104.8 mmHg (> 60.0); pH, Arterial 7.35 (7.35-7.45)
[2017-12-27 18:15] LABS: Calcium, Ionized 1.1 mmol/L (1.12-1.30); Hemoglobin (Hb) 12.4 g/dL (12.0-16.0); Potassium - ABG Lab 4.3 mmol/L (3.70-5.30); Puncture Site LRA
[2017-12-27 18:17] LABS: ALV-art Gradient 566.825 (0-20)
[2017-12-27] MEDS ORDERED: Sodium Chloride 0.9% 500 ML IVPB SCH (21:00)
[2017-12-27] MEDS ORDERED: Acetaminophen 325 MG TAB PO PRN (22:23)
[2017-12-28] MEDS ORDERED: Norepinephrine 8 MG/0.9% NS 250 ML ONE (02:08)
[2017-12-28] MEDS ORDERED: Norepinephrine 8 MG/250 ML BAG IVPB PRN (02:15)
[2017-12-28] MEDS ORDERED: Sodium Chloride 0.9% 500 ML IVPB SCH (02:15)
--- NOTE | 2017-12-28 02:59 | OP ---
Ksenia Aguiar is an 82-year-old female. I had extensive long discussion with the and alida hale of her siblings regarding her condition being grave, prognosis being very poor. They wanted all call pport including intubation. She, 2:00 in the afternoon, developed vomitus, bilious. Her oxygen satu ration dropped. She was transferred to the ICU on leveled BiPAP 100% FiO2, her sats were remaining i n the 80s. It was felt she needed to be intubated. On arrival to the ICU, her BiPAP was removed. She was bagged. A bite block was placed and 7.5 endot kavitha tube was placed over the bronchoscope. The patient proceeded to vomit a very large vomit of bilious secretions. We had the bronchoscope in adequate position with endotracheal tube in the lung. The area was continuously lavaged. Most of the bowel was removed. The endotracheal tube was place d above the jamila. She was bagged. Sats were in the 60s. Continued progressive bagging was done. Adaptor was placed on the endotracheal tube. The patient was lavaged, both lungs, right and left up per, middle and lower lobe until all bilious secretions were completely removed. There was no endobronchial disease, no bleeding was seen. She is connected to warm cycle respirator. A stat chest x-ray will be ordered. The patient was given 1 mg of Versed. PHYSICAL EXAMINATION: VITAL SIGNS: Pulse is 100, blood pressure is in the 70s. CHEST: Extensive rhonchi and crackles. CARDIAC: Sinus tachycardia. ABDOMEN: Distended and soft. NEUROLOGICAL: She is pretty much encephalopathic. IMPRESSION: 1. Acute respiratory failure, multifactorial. 2. Aspiration pneumonia. 3. Pulmonary embolism. 4. Chronic bronchitis, bronchiectasis. 5. Dementia. PLAN: At this stage is to continue vent support. Broad-spectrum antibiotics, nebulizer treatments, steroids. Continue suction from the NG. She is already on Lovenox, which we will continue. Prognosis is grave . This is [id number] critical time inclusive of intubation and bronchoscopy and lavage.
[2017-12-28 04:55] LABS: Anion Gap 22 mmol/L (10-20); BUN (Urea Nitrogen) 75 mg/dL (9.8-20.1); Calc. Creatinine Clearance 17 mL/min (70-130); Calcium 7.5 mg/dL (7.8-10.44); Carbon Dioxide 16 mmol/L (23-31); Chloride 113 mmol/L (98-107); Estimated GFR-MDRD 18; Glucose 100 mg/dL (83-110); Sodium 146 mmol/L (136-145)
[2017-12-28 04:56] LABS: Band 36 % (5-11); Eosinophils 1 % (0-10); Hemoglobin 10.2 g/dL (12.0-16.0); Lymphocytes 2 % (21-51); MDiff Complete? YES; Mean Corpuscular HGB CONC 32.1 g/dL (32.0-36.0); Mean Corpuscular Hemoglobin 35.7 pg (27.0-31.0); Mean Platelet Volume 8.3 fL (7.4-10.4); Neutrophil 61 % (42-75); PLT Morphology Comment Appears Adequate; Platelet Count 248 thou/uL (130-400); RBC Distribution Width 14.2 % (11.5-14.5); Red Blood Cell (RBC) Count 2.86 mill/uL (4.20-5.40); White Blood Cell (WBC) Count 11.8 thou/uL (4.8-10.8)
[2017-12-28] MEDS: Levothyroxine Sodium 112 MCG TAB PO SCH (06:01)
[2017-12-28] MEDS: Levothyroxine Sodium 25 MCG TAB PO SCH (06:01)
[2017-12-28] MEDS: Sodium Chloride 0.9% 1,000 ML IV SCH ×3 (06:02→20:57)
[2017-12-28 06:57] LABS: Actual Bicarbonate (HCO3a) 17.2 mEq/L (22-28); Base Excess (BEa) -5.3 mEq/L (-2.0 to +3.0); CO2 Tension 25.5 mmHg (35.0-45.0); Carboxyhemoglobin (COHb) 1.3 gm% (0.0-3.0); Hemoglobin (Hb) 10.8 g/dL (12.0-16.0); O2 Tension (PaO2) 236.4 mmHg (> 60.0); Potassium - ABG Lab 4.6 mmol/L (3.70-5.30); pH, Arterial 7.45 (7.35-7.45)
[2017-12-28 06:58] LABS: ALV-art Gradient 373.425 (0-20); Puncture Site LRA
[2017-12-28] MEDS: Atorvastatin Calcium 10 MG TAB PO SCH (08:36)
[2017-12-28] MEDS: levETIRAcetam 500 mg/5 ml Oral Solution PO SCH ×2 (08:36→20:55)
[2017-12-28] MEDS: Folic Acid 1 MG TAB PO SCH (08:36)
[2017-12-28] MEDS: Lisinopril 20 MG TAB PO SCH (08:37)
[2017-12-28] MEDS: Metoprolol Tartrate 25 MG TAB PO SCH ×2 (08:37→20:56)
[2017-12-28] MEDS: Cefepime 1 GM in Sodium Chloride 0.9% 100 ML IVPB SCH ×2 (08:38→20:54)
[2017-12-28] MEDS: sulfaSALAzine 500 MG TAB PO SCH ×2 (08:38→20:56)
[2017-12-28] MEDS: Enoxaparin Sodium 60 MG/0.6 ML SYRINGE SC SCH ×2 (08:40→20:55)
[2017-12-28] MEDS: Acetaminophen 650 MG Suppository PR PRN ×2 (09:20→23:40)
--- NOTE | 2017-12-28 09:26 | RAD ---
PORTABLE CHEST: INDICATION: CCU patient on ventilator with daily followup. COMPARISON: 12/27/17. FINDINGS: ET tube and NG tube remain in place. Confluent infiltrate in the right upper lung again seen. Hazy infiltrate in the right lower lung again seen. Bilateral effusions and bibasilar atelectasis. No significant change from yesterday. POS: [facility]
--- NOTE | 2017-12-28 10:51 | PRG ---
DATE OF SERVICE: 12/28/2017 SUBJECTIVE: Ms. Aguiar remains intubated on the vent, breathing. She is breathing 40 times per lucretia te. OBJECTIVE: VITAL SIGNS: Sats are 99%, blood pressure 90/35, pulse 120. HEENT: Pupils are dilated. GENERAL: She is encephalopathic. I's and O's are poor with minimal urine output. CHEST: Reveals bilateral rhonchi. CARDIAC: Sinus tachycardia. ABDOMEN: Soft. NEUROLOGICAL: Unresponsive. LABORATORY DATA: White count is 11,000, H&H is 10 and 31, platelet count 248, pO2 is 236, pCO2 , pH 7.45 on a rate of 22, PEEP of 11. BUN and creatinine are 75 and 2.59 . X-RAY FINDINGS: X-ray shows bilateral infiltrates. IMPRESSION: 1. Status post respiratory failure. 2. Status post large volume aspiration. 3. Supraventricular tachycardia. 4. Pulmonary embolism. 5. Hypothyroidism. 6. Renal failure. PLAN: I increased IV to 250 an hour. Otherwise, continue antibiotics, supportive care. So far cult ures are negative except for urine E. coli. Prognosis is grave. She is a DNR as per the family's wi shes. One-half hour critical care time.
--- NOTE | 2017-12-28 14:30 | PDOC.PN ---
- Subjective Encounter Start Date: 12/28/17 Encounter Start Time: 09:00 patient is seen today, Intubated last evening after big aspiration of bile following vomiting. Sedated. - Objective Resuscitation Status: Resuscitation Status DNR:Do Not Resuscitate MAR Reviewed: Yes Vital Signs & Weight: Vital Signs (12 hours) Temp Pulse Resp BP Pulse Ox 12/28/17 10:48 120 H 132/29 L 12/28/17 06:44 111 H 125/41 L 12/28/17 06:39 124 H 43 H 99 12/28/17 06:00 41 H 12/28/17 05:24 105 H 124/49 L 12/28/17 04:00 97.9 F 36 H Weight Weight 143 lb 8.335 oz Most Recent Monitor Data Heart Rate from ECG 121 NIBP 134/55 NIBP BP-Mean 74 Respiration from ECG 40 SpO2 100 I&O: 12/27/17 12/28/17 12/29/17 06:59 06:59 06:59 Intake Total 1300 2839.2 Output Total 400 2688 Balance 900 151.2 Result Diagrams: 12/28/17 04:10 12/28/17 04:10 Additional Labs: Accuchecks 12/28/17 12/28/17 12/27/17 04:14 00:21 20:06 POC Glucose 109 121 H 136 H 12/27/17 16:39 POC Glucose 160 H Radiology Reviewed by me: Yes Phys Exam - Physical Examination Respiratory: wheezing present Cardiovascular: RRR, no significant murmur Gastrointestinal: soft, non-tender Musculoskeletal: edema present Lymphatic: no nodes Skin: no rash, normal turgor Dx/Plan (1) Pulmonary embolism Code(s): I26.99 - OTHER PULMONARY EMBOLISM WITHOUT ACUTE COR PULMONALE Status : Acute Comment: Pt stated on Lovenox 1mg /kg, pulmonary following. (2) Acute and chronic respiratory failure with hypoxia Code(s): J96.21 - ACUTE AND CHRONIC RESPIRATORY FAILURE WITH HYPOXIA Status: Acute Comment: Pt intubated following aspiration, continue with IV Abx. (3) NSTEMI (non-ST elevated myocardial infarction) Code(s): I21.4 - NON-ST ELEVATION (NSTEMI) MYOCARDIAL INFARCTION Status: Acute Comment: Pt has PE, likely contributing to Demand ischemia. Pt on Aspirin/ BB, Anticoagulation with lovenox. (4) SVT (supraventricular tachycardia) Code(s): I47.1 - SUPRAVENTRICULAR TACHYCARDIA Status: Acute Comment: Likely from PE. (5) Hyponatremia Code(s): E87.1 - HYPO-OSMOLALITY AND HYPONATREMIA Status: Resolved (6) Atrial fibrillation Code(s): I48.91 - UNSPECIFIED ATRIAL FIBRILLATION Status: Chronic Qualifiers: Atrial fibrillation type: paroxysmal Qualified Code(s): I48.0 - Paroxysmal atrial fibrillation (7) Dementia Code(s): F03.90 - UNSPECIFIED DEMENTIA WITHOUT BEHAVIORAL DISTURBANCE Status: Chronic Qualifiers: Dementia type: unspecified type (8) Falls frequently Code(s): R29.6 - REPEATED FALLS Status: Chronic (9) Aspiration pneumonia due to vomit Code(s): J69.0 - PNEUMONITIS DUE TO INHALATION OF FOOD AND VOMIT Status: Acute (10) Hypernatremia Code(s): E87.0 - HYPEROSMOLALITY AND HYPERNATREMIA Status: Acute Comment: will change to D51/2 NS. - Plan cont current plan of care, continue antibiotics, PT/OT, DVT proph w/lovenox * . Review of Systems - Review of Systems Other: Unable to obtain ROS. - Medications/Allergies Allergies/Adverse Reactions: Allergies Allergy/AdvReac Type Severity Reaction Status Date / Time Penicillins Allergy Mild Verified 12/25/15 23:07 Medications: Current Medications Acetaminophen (Tylenol) 650 mg PO Q4H PRN PRN Reason: Headache/Fever or Pain Acetaminophen (Tylenol) 650 mg WI Q4H PRN PRN Reason: TEMP > OR = 101 Last Admin: 12/28/17 09:20 Dose: 650 mg Albumin Human (Albumin 5%) 25 gm IVPB NOW [facility] Stop: 12/28/17 15:00 Last Admin: 12/28/17 08:59 Dose: 25 gm Albuterol/Ipratropium (Duoneb) 3 ml NEB [id number] [facility] Last Admin: 12/28/17 06:39 Dose: 3 ml Aspirin (Aspirin Chewable) 81 mg PO DAILY [facility] Last Admin: 12/28/17 08:35 Dose: Not Given Atorvastatin Calcium (Lipitor) 10 mg PO DAILY [facility] Last Admin: 12/28/17 08:36 Dose: Not Given Clonidine (Catapres) 0.1 mg PO Q6HR PRN PRN Reason: Hypertension Last Admin: 12/22/17 04:21 Dose: 0.1 mg Dextrose/Water (Dextrose 50%) 25 gm SLOW IVP PRN PRN PRN Reason: Hypoglycemia Diltiazem HCl (Cardizem Cd) 240 mg PO DAILY [facility] Last Admin: 12/28/17 08:36 Dose: Not Given Enoxaparin Sodium (Lovenox) 60 mg SC 0900,2100 [facility] Last Admin: 12/28/17 08:40 Dose: 60 mg Folic Acid (Folvite) 1 mg PO DAILY [facility] Last Admin: 12/28/17 08:36 Dose: Not Given Glucagon (Glucagon) 1 mg IM PRN PRN PRN Reason: Hypoglycemia Hydralazine HCl (Apresoline) 10 mg SLOW IVP Q3H PRN PRN Reason: .SBP >170 Last Admin: 12/26/17 21:42 Dose: 10 mg Dextrose/Water (D5w) 1,000 mls @ 0 mls/hr IV .Q0M PRN PRN Reason: Hypoglycemia Cefepime HCl 1 gm/ Sodium (Chloride) 100 mls @ 200 mls/hr IVPB Q12HR [facility] Last Admin: 12/28/17 08:38 Dose: 100 mls Fentanyl Citrate 2,000 mcg/ (Sodium Chloride) 100 mls @ 0 mls/hr IV INF [facility]; Protocol Stop: 01/26/18 17:38 Fentanyl Citrate (Fentanyl Bolus) 250 mls @ 0 mls/hr IVPB PRN PRN PRN Reason: Breakthrough pain/agitation Stop: 01/26/18 17:38 Norepinephrine Bitartrate (Levophed) 250 mls @ 0 mls/hr IVPB INF PRN; Protocol PRN Reason: Blood Pressure Sodium Chloride (Normal Saline 0.9%) 1,000 mls @ 150 mls/hr IV .Q6H40M [facility] Last Admin: 12/28/17 08:41 Dose: 1,000 mls Insulin Human Regular (Humulin R) 0 units SC .MILD SLIDING SCALE PRN PRN Reason: Mild Correctional Scale Insulin Human Regular (Humulin R) 0 units SC .BEDTIME SLIDING SC PRN PRN Reason: Bedtime Correctional Scale Last Admin: 12/24/17 00:32 Dose: 4 unit Levetiracetam (Keppra Oral Solution) 500 mg PO BID [facility] Last Admin: 12/28/17 08:36 Dose: Not Given Levothyroxine Sodium (Synthroid) 125 mcg PO MWF@0600 [facility] Last Admin: 12/26/17 05:40 Dose: Not Given Levothyroxine Sodium (Synthroid) 112 mcg PO SuTuThSa@0600 [facility] Last Admin: 12/28/17 06:01 Dose: Not Given Levothyroxine Sodium (Synthroid) 25 mcg PO SuTuThSa@0600 [facility] Last Admin: 12/28/17 06:01 Dose: Not Given Lorazepam (Ativan) 2 mg SLOW IVP Q1H PRN PRN Reason: Breakthrough agitation Stop: 01/26/18 17:38 Methylprednisolone Sodium Succinate (Solu-Medrol) 40 mg IVP BID [facility] Last Admin: 12/28/17 08:39 Dose: 40 mg Metoprolol Tartrate (Lopressor) 25 mg PO BID [facility] Last Admin: 12/28/17 08:37 Dose: Not Given Miscellaneous Medication (Pharmacy To Dose) 1 each IVPB PRN PRN PRN Reason: Pharmacy to dose Morphine Sulfate (Morphine Sulfate) 2 mg SLOW IVP Q1H PRN PRN Reason: BREAKTHROUGH PAIN/AGITATION Stop: 01/26/18 17:38 Discontinue Previous Narcotic Pain Medications And Benzodiazepines 1 each FS .ONE [facility] Stop: 01/26/18 17:38 Ondansetron HCl (Zofran) 4 mg SLOW IVP Q2H PRN PRN Reason: Nausea/Vomiting Last Admin: 12/27/17 15:24 Dose: 4 mg Pantoprazole Sodium (Protonix) 40 mg PO DAILY [facility] Last Admin: 12/28/17 08:37 Dose: Not Given Propofol (Diprivan) 1,000 mg IV INF PRN; Protocol PRN Reason: TO ACHIEVE GOAL RASS Stop: 01/26/18 17:38 Last Admin: 12/27/17 19:14 Dose: 1,000 mg Propofol (Diprivan Bolus) 20 mg IV Q5MIN PRN PRN Reason: BREAKTHROUGH AGITATION Stop: 01/26/18 17:38 Sodium Chloride (Flush - Normal Saline) 10 ml IVF Q12HR [facility] Last Admin: 12/28/17 08:37 Dose: Not Given Sodium Chloride (Flush - Normal Saline) 10 ml IVF PRN PRN PRN Reason: Saline Flush Sulfasalazine (Azulfidine) 500 mg PO BID [facility] Last Admin: 12/28/17 08:38 Dose: Not Given
--- NOTE | 2017-12-28 17:10 | CON ---
DATE OF CONSULTATION: 12/28/2017 CONSULTING PHYSICIAN: Dr. Solares. REASON FOR CONSULTATION: Acute kidney injury. REASON FOR ADMISSION: Back pain and fall. HISTORY OF PRESENT ILLNESS: This is an 82-year-old female who was admitted to the hospital for over a week seen in the ICU today and remains intubated. Family at the bedside including sons and daughte r-in-law. The patient was initially admitted to the hospital after a fall and started having back pa in and was found to have acute T12 compression fracture and UTI and is being treated. She also was f ound to have pulmonary emboli and is on anticoagulants. Her creatinine on admission was 0.8 and stay ed around 0.8 till 12/24/2017 and last few days has been rising and this morning was 2.59 with no uri ne output and Nephrology consulted. Potassium is 5.0, bicarbonate is 16. She is currently on cefepi me and IV fluids and also full dose Lovenox for pulmonary emboli. PAST MEDICAL HISTORY: Positive for atrial fibrillation, SVT, hypertension, rheumatoid arthritis, dem entia, COPD. PAST SURGICAL HISTORY: Appendectomy, hysterectomy, cardiac ablation. HOME MEDICATIONS: Trazodone, prednisone, Protonix, clonidine, folate, diltiazem, levothyroxine, ator vastatin, metoprolol, aspirin, Zestril, potassium, Azulfidine, Keppra. ALLERGIES: PENICILLIN. SOCIAL HISTORY: No smoking, alcohol or drug abuse. FAMILY HISTORY: None. REVIEW OF SYSTEMS: Could not be obtained as the patient is intubated. PHYSICAL EXAMINATION: GENERAL: Elderly female seen in ICU, intubated. VITAL SIGNS: Temperature 97.9, pulse 111, blood pressure . HEENT: Intubated. CARDIOVASCULAR SYSTEM: S1, S2 heard, tachycardic. RESPIRATORY: Clear. ABDOMEN: Soft. MUSCULOSKELETAL: There is no tenderness, no edema. Cold extremities. DERMATOLOGIC: No skin rash. NEUROLOGICAL: Intubated. LABORATORY DATA: Hemoglobin is 10.2, WBC 11.8, potassium is 5.0, BUN is 75, creatinine is 2.5. GFR of 18 and no urine output. ASSESSMENT AND PLAN: 1. Acute kidney injury with anuria. Currently on IV fluids. Continue supportive care. Prognosis g uarded. Family was updated. 2. Hypernatremia. 3. Hyperkalemia. We will stop potassium and supplementation. 4. Metabolic acidosis, most likely from sepsis. 5. Septic shock, currently on Levophed. 6. Tachycardia. 7. Anemia. 8. Leukocytosis. 9. History of urinary tract infection. 10. Pulmonary embolism, recommend heparin drip rather than Lovenox given acute kidney injury. MEDICATION LIST: Reviewed. Recommend renal supplements and will stop potassium and lisinopril. We will recommend heparin drip and will follow. Avoid nephrotoxins at this point. Renally dose all the medications and continue supportive care and antibiotics. Continue critical care. Family updated. Thank you for the consult.
[2017-12-29 03:22] LABS: Mean Corpuscular Hemoglobin 34.7 pg (27.0-31.0); Mean Platelet Volume 8.1 fL (7.4-10.4); Platelet Count 231 thou/uL (130-400); RBC Distribution Width 14.6 % (11.5-14.5); Red Blood Cell (RBC) Count 2.89 mill/uL (4.20-5.40); White Blood Cell (WBC) Count 13.5 thou/uL (4.8-10.8)
[2017-12-29 03:40] LABS: Band 13 % (5-11); Hypochromia SLIGHT = 6-15 cells (100X) (0-5/hpf); Lymphocytes 5 % (21-51); MDiff Complete? YES; Macrocytosis SLIGHT = 6-15 cells (100X) (0-5/hpf); Monocytes 1 % (0-10); Neutrophil 81 % (42-75); Nucleated RBC 5 % (0); PLT Morphology Comment Appears Adequate
[2017-12-29 03:43] LABS: Anion Gap 19 mmol/L (10-20); BUN (Urea Nitrogen) 87 mg/dL (9.8-20.1); Calc. Creatinine Clearance 17 mL/min (70-130); Calcium 7.3 mg/dL (7.8-10.44); Carbon Dioxide 16 mmol/L (23-31); Chloride 117 mmol/L (98-107); Estimated GFR-MDRD 17; Glucose 109 mg/dL (83-110); Potassium 4.1 mmol/L (3.5-5.1); Sodium 148 mmol/L (136-145)
[2017-12-29] MEDS: Diltiazem HCl 125 MG, Admixture Fee 1 EACH in Sodium Chloride 0.9% 100 ML IVPB SCH ×3 (03:47→20:59)
[2017-12-29] MEDS: Levothyroxine Sodium 125 MCG TAB PO SCH (06:00)
[2017-12-29] MEDS: Sodium Chloride 0.9% 1,000 ML IV SCH ×4 (06:02→11:47)
--- NOTE | 2017-12-29 06:06 | PDOC.CTH ---
Cardiology Progress Note - Subjective Pt intubated and sedated. - Objective Vital Signs Temp Pulse Resp BP Pulse Ox 12/29/17 05:34 30 H 12/29/17 04:00 22 H 12/29/17 03:11 142 H 135/75 12/29/17 03:00 99.5 F 12/29/17 02:00 23 H 12/29/17 00:00 22 H 12/28/17 23:47 97 12/28/17 23:46 121 H 12/28/17 22:00 21 H 12/28/17 19:59 99.0 F 122 H 26 H 94 L 12/28/17 19:00 99.0 F 12/28/17 18:26 118 H 166/59 H Weight 156 lb 1.396 oz 12/27/17 12/28/17 12/29/17 06:59 06:59 06:59 Intake Total 1300 2839.2 4043.1 Output Total 400 2688 1747 Balance 900 151.2 2296.1 - Physical Examination Neck: no JVD present Lungs: unlabored respirations Heart: PMI normal, RRR Abdomen: NT/ND, soft Extremities: + femoral B - Labs Result Diagrams: 12/29/17 03:00 12/29/17 03:00 Troponin/CKMB CK-MB (CK-2) 5.1 ng/mL (0-6.6) 12/23/17 22:49 Troponin I 1.902 ng/mL (< 0.028) H* 12/25/17 20:06 - Assessment/Plan 1. Elevated troponin 2. SVT 3. HTN 4. Dementia 5. PE 6. Respiraotry failure Pt intubated over the weekend at family request Change to po CCB Q6H; diffiult given increase in gatric contents suggesting ileus Add digoxin spoke with son at length today. They are considering withdrawing support in next few days.
[2017-12-29] MEDS ORDERED: Digoxin 0.5 MG/2 ML AMP SLOW IVP SCH ×2 (07:30→12:00)
--- NOTE | 2017-12-29 07:36 | PRG ---
DATE OF SERVICE: 12/29/2017 This morning she is still encephalopathic. This appears to be somewhat hat brim curler. PHYSICAL EXAMINATION: VITAL SIGNS: Sats are 99%, pulse 149, atrial fibrillation, blood pressure 107/100. She is on Cardiz em at 10 mg an hour. Her urine output has picked up. She has 2839 in, 2688 out. Temperature hayes, she is 98. Chest x-ray shows bilateral infiltrates. CHEST: On examination, chest revealed decreased breath sounds, bilateral rhonchi. CARDIAC: Atrial fibrillation. ABDOMEN: Soft but distended, large amount of bilious secretions come through the NG tube. White count 13,000, H&H 10 and 30, platelet count 231. Creatinine is 2.6, BUN 87. Yeast in the bron chial washing. IMPRESSION: 1. Respiratory failure. 2. Aspiration. 3. Pulmonary embolus. 4. Supraventricular tachycardia. 5. Ileus. PLAN: Continue antibiotics. I have added digoxin, Reglan to her present regime, IV Synthroid. We will follow. One-half hour critical care time.
[2017-12-29] MEDS: Cefepime 1 GM in Sodium Chloride 0.9% 100 ML IVPB SCH ×2 (08:28→20:35)
[2017-12-29] MEDS ORDERED: Levothyroxine 100 MCG SDV IVP SCH (08:45)
[2017-12-29] MEDS: Metoclopramide HCl 10 MG/2 ML VIAL IVP SCH ×2 (09:00→17:05)
--- NOTE | 2017-12-29 09:15 | RAD ---
AP VIEW OF THE CHEST: INDICATION: History of pleural effusion. COMPARISON: Prior exam dated 12/28/17. FINDINGS: Airspace opacity of the right upper lobe is stable. NG tube and gastric catheter are unchanged. Tin y bilateral pleural effusions persist. Bibasilar atelectasis is similar. No pneumothorax is evident . IMPRESSION: Stable exam. POS: [facility]
[2017-12-29] MEDS: Folic Acid 1 MG TAB PO SCH (09:42)
[2017-12-29] MEDS: Atorvastatin Calcium 10 MG TAB PO SCH (09:42)
[2017-12-29] MEDS: Metoprolol Tartrate 25 MG TAB PO SCH ×2 (09:42→20:36)
[2017-12-29] MEDS: Pantoprazole 40 MG VIAL IVP SCH (09:53)
[2017-12-29] MEDS: sulfaSALAzine 500 MG TAB PO SCH ×2 (10:34→20:35)
[2017-12-29] MEDS: levETIRAcetam 500 mg/5 ml Oral Solution PO SCH ×2 (10:36→20:34)
--- NOTE | 2017-12-29 12:27 | PRG ---
DATE OF SERVICE: 12/29/2017 SUBJECTIVE: An 82-year-old female being seen for acute kidney injury. PHYSICAL EXAMINATION: GENERAL: Patient is resting. VITAL SIGNS: Afebrile, pulse 73, breathing at 16, blood pressure is 124/82. HEAD/NECK: Normocephalic. Atraumatic. EYES: EOMI. No deformity. EARS: Clear. No ulcers. NOSE: Intact. No lesions. MOUTH: Clear. No discharge. THROAT: Clear. No exudate. LUNGS: Clear. No crackles. CARDIAC: S1, S2. No rub. ABDOMEN: Benign. BS+. GENITALIA/RECTUM: Norman absent. BACK/EXTREMITIES: Edema 0+ Ulcer- NEUROLOGICAL: Alert and motor intact. SKIN: Rash- Bruise- LYMPHATICS: Edema- Ulcer- LABORATORY DATA: Show hemoglobin is 10 and creatinine 2.64. ASSESSMENT AND RECOMMENDATIONS: 1. Acute kidney injury with chronic kidney disease stage 4, stable. 2. Hypertension, stable. 3. Hypernatremia. I would recommend changing IV fluids to D5W. 4. Medications based on glomerular filtration rate are appropriate.
[2017-12-29] MEDS: Dextrose 5% in Water 1,000 ML IV SCH (13:19)
[2017-12-29] MEDS: Acetaminophen 650 MG Suppository PR PRN (13:54)
--- NOTE | 2017-12-29 15:24 | EKG ---
Test Reason : STAT TACHYCARDIA Blood Pressure : / mmHG Vent. Rate : 145 BPM Atrial Rate : 394 BPM P-R Int : 000 ms QRS Dur : 080 ms QT Int : 312 ms P-R-T Axes : 000 -15 077 degrees QTc Int : 484 ms Atrial fibrillation with rapid ventricular response Anterior infarct , age undetermined cannot be excluded Abnormal ECG Confirmed by CHRISSY MCCORMACK ([id number]) on 12/29/2017 3:23:35 PM Referred By: SHENG Confirmed By:CHRISSY MCCORMACK
--- NOTE | 2017-12-29 16:46 | PDOC.PN ---
- Subjective Encounter Start Date: 12/29/17 Encounter Start Time: 16:45 Subjective: intubated over the weekend for possible aspiration -: care discussed w Daughter and .report that she opened eyes for them -: discussed w RN in CCU - Objective Resuscitation Status: Resuscitation Status DNR:Do Not Resuscitate MAR Reviewed: Yes Vital Signs & Weight: Vital Signs (12 hours) Temp Pulse Resp BP Pulse Ox 12/29/17 15:05 147 H 94/54 L 12/29/17 15:00 99.0 F 12/29/17 14:00 99.9 F H 26 H 12/29/17 13:43 144 H 107/69 12/29/17 12:00 99.3 F 28 H 12/29/17 11:47 113 H 12/29/17 10:00 29 H 12/29/17 09:48 113 H 126/55 L 12/29/17 09:42 121 H 12/29/17 08:07 121 H 12/29/17 08:00 13.5 F L 120 H 29 H 95 12/29/17 07:09 97 12/29/17 07:06 121 H 107/100 H 12/29/17 06:00 98.9 F 12/29/17 05:34 30 H Weight Admit Weight 141 lb Weight 156 lb 1.396 oz Most Recent Monitor Data Heart Rate from ECG 147 NIBP 94/54 NIBP BP-Mean 72 Respiration from ECG 29 SpO2 95 I&O: 12/28/17 12/29/17 12/30/17 06:59 06:59 06:59 Intake Total 2839.2 4043.1 1139 Output Total 2688 1797 710 Balance 151.2 2246.1 429 Result Diagrams: 12/29/17 03:00 12/29/17 03:00 Additional Labs: Microbiology 12/23/17 22:59 Urine Straight Catheter Urine Culture - Final NO GROWTH AT 36 HOURS 12/23/17 22:49 Venous blood - Left Hand Blood Culture - Final NO GROWTH IN 5 DAYS 12/23/17 22:49 Venous blood - Left Arm Blood Culture - Final NO GROWTH IN 5 DAYS 12/21/17 13:33 Venous blood - Right Hand Blood Culture - Final NO GROWTH IN 5 DAYS 12/21/17 13:31 Venous blood - Left Arm Blood Culture - Final NO GROWTH IN 5 DAYS 12/21/17 12:16 Urine Straight Catheter Urine Culture - Final Escherichia coli 12/27/17 17:35 Bronchial Washing - Aspirate Respiratory Culture - Preliminary Yeast species Laboratory Tests 12/26/17 12/27/17 12/28/17 07:17 03:35 04:10 Creatinine 1.00 1.43 H 2.59 H 12/29/17 03:00 Creatinine 2.64 H labs reviewed Phys Exam - Physical Examination Constitutional: NAD intubated HEENT: PERRLA, moist MMs, sclera anicteric, oral pharynx no lesions Neck: no nodes, no JVD, supple, full ROM Respiratory: no wheezing, no rales, no rhonchi, clear to auscultation bilateral Cardiovascular: RRR, no significant murmur Gastrointestinal: soft, non-tender, no distention, positive bowel sounds Musculoskeletal: no edema, pulses present Dx/Plan (1) Acute and chronic respiratory failure with hypoxia Code(s): J96.21 - ACUTE AND CHRONIC RESPIRATORY FAILURE WITH HYPOXIA Status: Acute Comment: Pt intubated following aspiration, continue with IV Abx. (2) Atrial fibrillation with RVR Code(s): I48.91 - UNSPECIFIED ATRIAL FIBRILLATION Status: Acute (3) MAYRA (acute kidney injury) Code(s): N17.9 - ACUTE KIDNEY FAILURE, UNSPECIFIED Status: Acute (4) Aspiration pneumonia due to vomit Code(s): J69.0 - PNEUMONITIS DUE TO INHALATION OF FOOD AND VOMIT Status: Acute Comment: on Cefepime (5) Compression fracture of thoracic vertebra Code(s): S22.000A - WEDGE COMPRESSION FRACTURE OF UNSP THORACIC VERTEBRA, INIT Status: Acute Qualifiers: Encounter type: initial encounter (6) Hypernatremia Code(s): E87.0 - HYPEROSMOLALITY AND HYPERNATREMIA Status: Acute Comment: will change to D51/2 NS. (7) NSTEMI (non-ST elevated myocardial infarction) Code(s): I21.4 - NON-ST ELEVATION (NSTEMI) MYOCARDIAL INFARCTION Status: Acute Comment: Pt has PE, likely contributing to Demand ischemia. Pt on Aspirin/ BB, Anticoagulation with lovenox. (8) Pulmonary embolism Code(s): I26.99 - OTHER PULMONARY EMBOLISM WITHOUT ACUTE COR PULMONALE Status : Acute Comment: Pt stated on Lovenox 1mg /kg, pulmonary following. (9) Hypertension Code(s): I10 - ESSENTIAL (PRIMARY) HYPERTENSION Status: Chronic Qualifiers: Hypertension type: essential hypertension Qualified Code(s): I10 - Essential (primary) hypertension - Plan plan discussed w/ family, continue antibiotics, PT/OT, respiratory therapy, DVT proph w/lovenox, DVT proph w/SCDs critically ill.cont care as discussed above w Lovenox renally dosed -: monitor UO & renal Fx. change IVF to D5 for high sodium. -: cont cardiazem drip/Po for rate control.lovenox for AC -: Vent support.empiric ABx. -: poor prognosis.Family wants to wait a little more before terminal extubatin * . Review of Systems - Review of Systems Constitutional: negative: fever, chills, sweats, weakness, malaise, other ENT: negative: Ear Pain, Ear Discharge, Nose Pain, Nose Discharge, Nose Congestion, Mouth Pain, Mouth Swelling, Throat Pain, Throat Swelling, Other Respiratory: negative: Cough, Dry, Shortness of Breath, Hemoptysis, SOB with Excertion, Pleuritic Pain, Sputum, Wheezing Cardiovascular: negative: chest pain, palpitations, orthopnea, paroxysmal nocturnal dyspnea, edema, light headedness, other Gastrointestinal: negative: Nausea, Vomiting, Abdominal Pain, Diarrhea, Constipation, Melena, Hematochezia, Other Genitourinary: negative: Dysuria, Frequency, Incontinence, Hematuria, Retention , Other Musculoskeletal: negative: Neck Pain, Shoulder Pain, Arm Pain, Back Pain, Hand Pain, Leg Pain, Foot Pain, Other Neurological: negative: Weakness, Numbness, Incoordination, Change in Speech, Confusion, Seizures, Other - Medications/Allergies Allergies/Adverse Reactions: Allergies Allergy/AdvReac Type Severity Reaction Status Date / Time Penicillins Allergy Mild Verified 12/25/15 23:07 Medications: Current Medications Acetaminophen (Tylenol) 650 mg PO Q4H PRN PRN Reason: Headache/Fever or Pain Acetaminophen (Tylenol) 650 mg OK Q4H PRN PRN Reason: TEMP > OR = 101 Last Admin: 12/29/17 13:54 Dose: 650 mg Albuterol/Ipratropium (Duoneb) 3 ml NEB [id number] [id number] Last Admin: 12/29/17 13:29 Dose: 3 ml Aspirin (Aspirin Chewable) 81 mg PO DAILY [facility] Last Admin: 12/29/17 09:42 Dose: 81 mg Atorvastatin Calcium (Lipitor) 10 mg PO DAILY [facility] Last Admin: 12/29/17 09:42 Dose: 10 mg Clonidine (Catapres) 0.1 mg PO Q6HR PRN PRN Reason: Hypertension Last Admin: 12/22/17 04:21 Dose: 0.1 mg Dextrose/Water (Dextrose 50%) 25 gm SLOW IVP PRN PRN PRN Reason: Hypoglycemia Diltiazem HCl (Cardizem) 60 mg PO ACHS [facility] Last Admin: 12/29/17 10:35 Dose: 60 mg Enoxaparin Sodium (Lovenox) 60 mg SC 2100 [facility] Folic Acid (Folvite) 1 mg PO DAILY [facility] Last Admin: 12/29/17 09:42 Dose: 1 mg Glucagon (Glucagon) 1 mg IM PRN PRN PRN Reason: Hypoglycemia Hydralazine HCl (Apresoline) 10 mg SLOW IVP Q3H PRN PRN Reason: .SBP >170 Last Admin: 12/26/17 21:42 Dose: 10 mg Dextrose/Water (D5w) 1,000 mls @ 0 mls/hr IV .Q0M PRN PRN Reason: Hypoglycemia Cefepime HCl 1 gm/ Sodium (Chloride) 100 mls @ 200 mls/hr IVPB Q12HR [facility] Last Admin: 12/29/17 08:28 Dose: 100 mls Fentanyl Citrate 2,000 mcg/ (Sodium Chloride) 100 mls @ 0 mls/hr IV INF [facility]; Protocol Stop: 01/26/18 17:38 Fentanyl Citrate (Fentanyl Bolus) 250 mls @ 0 mls/hr IVPB PRN PRN PRN Reason: Breakthrough pain/agitation Stop: 01/26/18 17:38 Norepinephrine Bitartrate (Levophed) 250 mls @ 0 mls/hr IVPB INF PRN; Protocol PRN Reason: Blood Pressure Diltiazem HCl 125 mg/Miscellaneous Medication 1 each/ Sodium Chloride 125 mls @ 5 mls/hr IVPB INF [facility]; Protocol Last Admin: 12/29/17 14:03 Dose: 125 mls Dextrose/Water (D5w) 1,000 mls @ 75 mls/hr IV .[id number] [facility] Last Admin: 12/29/17 13:19 Dose: 1,000 mls Insulin Human Regular (Humulin R) 0 units SC .MILD SLIDING SCALE PRN PRN Reason: Mild Correctional Scale Insulin Human Regular (Humulin R) 0 units SC .BEDTIME SLIDING SC PRN PRN Reason: Bedtime Correctional Scale Last Admin: 12/24/17 00:32 Dose: 4 unit Levetiracetam (Keppra Oral Solution) 500 mg PO BID [facility] Last Admin: 12/29/17 10:36 Dose: 500 mg Levothyroxine Sodium (Synthroid) 65 mcg IVP 0600 [facility] Lorazepam (Ativan) 2 mg SLOW IVP Q1H PRN PRN Reason: Breakthrough agitation Stop: 01/26/18 17:38 Last Admin: 12/29/17 13:49 Dose: 2 mg Methylprednisolone Sodium Succinate (Solu-Medrol) 40 mg IVP BID [facility] Last Admin: 12/29/17 08:29 Dose: 40 mg Metoclopramide HCl (Reglan) 10 mg IVP 0100,0900,1700 [facility] Last Admin: 12/29/17 09:00 Dose: 10 mg Metoprolol Tartrate (Lopressor) 25 mg PO BID [facility] Last Admin: 12/29/17 09:42 Dose: 25 mg Miscellaneous Medication (Pharmacy To Dose) 1 each IVPB PRN PRN PRN Reason: Pharmacy to dose Morphine Sulfate (Morphine Sulfate) 2 mg SLOW IVP Q1H PRN PRN Reason: BREAKTHROUGH PAIN/AGITATION Stop: 01/26/18 17:38 Ondansetron HCl (Zofran) 4 mg SLOW IVP Q2H PRN PRN Reason: Nausea/Vomiting Last Admin: 12/27/17 15:24 Dose: 4 mg Pantoprazole Sodium (Protonix) 40 mg IVP DAILY [facility] Last Admin: 12/29/17 09:53 Dose: 40 mg Propofol (Diprivan) 1,000 mg IV INF PRN; Protocol PRN Reason: TO ACHIEVE GOAL RASS Stop: 01/26/18 17:38 Last Admin: 12/27/17 19:14 Dose: 1,000 mg Propofol (Diprivan Bolus) 20 mg IV Q5MIN PRN PRN Reason: BREAKTHROUGH AGITATION Stop: 01/26/18 17:38 Sodium Chloride (Flush - Normal Saline) 10 ml IVF Q12HR [facility] Last Admin: 12/29/17 10:44 Dose: 10 ml Sodium Chloride (Flush - Normal Saline) 10 ml IVF PRN PRN PRN Reason: Saline Flush Sulfasalazine (Azulfidine) 500 mg PO BID [facility] Last Admin: 12/29/17 10:34 Dose: 500 mg
[2017-12-29 18:34] LABS: Anion Gap 17 mmol/L (10-20); BUN (Urea Nitrogen) 84 mg/dL (9.8-20.1); Calc. Creatinine Clearance 20 mL/min (70-130); Calcium 7.2 mg/dL (7.8-10.44); Carbon Dioxide 16 mmol/L (23-31); Chloride 118 mmol/L (98-107); Estimated GFR-MDRD 20; Glucose 160 mg/dL (83-110); Potassium 3.8 mmol/L (3.5-5.1); Sodium 147 mmol/L (136-145)
[2017-12-29] MEDS: Enoxaparin Sodium 60 MG/0.6 ML SYRINGE SC SCH (20:35)
--- NOTE | 2017-12-29 22:38 | CON ---
DATE OF CONSULTATION: 12/29/2017 HISTORY OF PRESENT ILLNESS: The patient is an 82-year-old female well known to me from a h istory of esophageal stenosis who last underwent EGD and dilatation on 10/30/2017. The dilation was performed without incident and she did well after that. She was admitted on 12/21/2017 with a recent fall and compression fracture of her thoracic vertebrae. She had severe pulmonary compromise on and was intubated and placed in the Intensive Care Unit. She adds nothing to history of pres ent illness. The patient apparently has had high gastric residuals and was started on Reglan and the n received 2 doses of Reglan. Since that time, she has had a bowel movement which seemed to be paul l in appearance. PAST MEDICAL HISTORY: Significant for atrial fibrillation, hypertension, rheumatoid arthritis, demen tia, COPD. PAST SURGICAL HISTORY: Includes appendectomy, hysterectomy, cardiac ablation. ALLERGIES: PENICILLIN. SOCIAL HISTORY: She is cared for by her , does not smoke or drink. MEDICATIONS: Prior to admission include trazodone 50 mg p.o. at bedtime p.r.n., prednisone 3 mg p.o. daily, pantoprazole 40 mg p.o. daily, folic acid 1 mg p.o. daily, Cardizem 30 mg p.o. q.i.d., levoth yroxine 137 mcg p.o. daily, Lipitor 10 mg p.o. daily, aspirin 81 mg p.o. daily, metoprolol 25 mg p.o. b.i.d., Zestril 20 mg p.o. daily, potassium chloride 20 mEq p.o. b.i.d., Azulfidine 500 mg p.o. b.i. d., Keppra 500 mg p.o. b.i.d. PHYSICAL EXAMINATION: VITAL SIGNS: Shows a pulse of 77, respiratory rate 23, blood pressure 129/58, pulse 75, temperature 99.0. HEENT: Significant for nasogastric tube and orotracheal tube. NECK: Supple. CHEST: Clear. CARDIOVASCULAR: Regular rate and rhythm. ABDOMEN: Soft, nontender, no organomegaly or masses are noted. Bowel sounds are absent. RECTAL: Deferred. EXTREMITIES: Normal. NEUROLOGIC: Nonfocal. LABORATORY DATA: Chest x-ray from 12/29/2017 shows nasogastric tube are in place with bibasilar atel ectasis is noted. ASSESSMENT: 1. Ileus -- probably multifactorial. 2. Atrial fibrillation. 3. Dementia. 4. Respiratory failure. 5. Pulmonary embolism. RECOMMENDATIONS: 1. Three-view of the abdomen. 2. Agree with IV Reglan. 3. Continue nasogastric suction. 4. Depending on progress, may need TPN.
[2017-12-30] MEDS: Metoclopramide HCl 10 MG/2 ML VIAL IVP SCH ×3 (00:20→17:29)
[2017-12-30] MEDS: Dextrose 5% in Water 1,000 ML IV SCH (00:23)
[2017-12-30 03:45] LABS: Platelet Count 204 thou/uL (130-400)
[2017-12-30 04:04] LABS: Anion Gap 19 mmol/L (10-20); BUN (Urea Nitrogen) 87 mg/dL (9.8-20.1); Calc. Creatinine Clearance 20 mL/min (70-130); Calcium 6.9 mg/dL (7.8-10.44); Carbon Dioxide 15 mmol/L (23-31); Chloride 115 mmol/L (98-107); Estimated GFR-MDRD 19; Glucose 249 mg/dL (83-110); Sodium 145 mmol/L (136-145)
[2017-12-30] MEDS: Levothyroxine 100 MCG SDV IVP SCH (05:09)
[2017-12-30] MEDS: Insulin Regular 300 UNITS/3 ML VIAL SC PRN (05:51)
--- NOTE | 2017-12-30 06:08 | PDOC.CTH ---
Cardiology Progress Note - Subjective No changes noted overnight. She appearsa to be in afib. Still with ileus present. - Objective Vital Signs Temp Pulse Resp BP Pulse Ox 12/30/17 04:00 98.3 F 19 12/30/17 03:14 74 12/30/17 02:00 21 H 12/30/17 00:00 99.2 F 20 12/29/17 22:42 76 121/46 L 12/29/17 22:00 22 H 12/29/17 20:00 99.1 F 99 26 H 96 12/29/17 19:00 99.1 F 12/29/17 18:46 128 H 94 L 12/29/17 18:45 94 L Admit Weight 141 lb Weight 156 lb 1.396 oz 12/28/17 12/29/17 12/30/17 06:59 06:59 06:59 Intake Total 2839.2 4043.1 3138 Output Total 2688 1797 1615 Balance 151.2 2246.1 1523 - Physical Examination Neck: carotid US brisk, no JVD present Lungs: unlabored respirations Heart: other: (irr) Abdomen: other: (No BS) Extremities: + femoral B - Labs Result Diagrams: 12/30/17 03:30 12/30/17 03:30 Troponin/CKMB CK-MB (CK-2) 5.1 ng/mL (0-6.6) 12/23/17 22:49 Troponin I 1.902 ng/mL (< 0.028) H* 12/25/17 20:06 - Assessment/Plan aspiration pneumonia ileus afib, SVT CAD s/p stent Respiratory failure Prognosis remain guarded. Pt in afib Pt on lovenox QAM seocndary to RI Rate controlled on IV CCB No po CCB secondary to ileus
[2017-12-30] MEDS: Sodium Chloride 0.9% 1,000 ML IV SCH ×3 (08:53→22:56)
[2017-12-30] MEDS: sulfaSALAzine 500 MG TAB PO SCH ×2 (08:54→20:09)
[2017-12-30] MEDS: Metoprolol Tartrate 25 MG TAB PO SCH ×2 (08:54→20:09)
[2017-12-30] MEDS: Folic Acid 1 MG TAB PO SCH (08:54)
[2017-12-30] MEDS: Digoxin 0.5 MG/2 ML AMP SLOW IVP SCH (08:55)
[2017-12-30] MEDS: Cefepime 1 GM in Sodium Chloride 0.9% 100 ML IVPB SCH ×2 (08:55→20:10)
[2017-12-30] MEDS: Pantoprazole 40 MG VIAL IVP SCH (08:55)
[2017-12-30] MEDS: levETIRAcetam 500 mg/5 ml Oral Solution PO SCH ×2 (08:56→20:09)
--- NOTE | 2017-12-30 09:02 | PRG ---
DATE OF SERVICE: 12/30/2017 She is an 82-year-old female who remains on the vent, encephalopathic. Pupils are pinpoint. PHYSICAL EXAMINATION: VITAL SIGNS: Pulse is 70, blood pressure is 130/47, sats 90%, respiration 22. I's & O's have been 2 839 in, 268 out. Maximum temperature has been 98. Cultures are negative except for the urine. Bronch washing is growing Leydi, which is probably a c ontamination. CHEST: Chest reveals decreased breath sounds, rhonchi. CARDIAC: Normal S1, S2, no gallops. ABDOMEN: Soft, no masses. LABORATORY: Creatinine is 2.42. BUN is 87. IMPRESSION: 1. Ileus. 2. Respiratory failure, aspiration. 3. Pulmonary embolus. 4. Supraventricular tachycardia with azotemia appears to be prerenal. PLAN: Continue IV at 150 an hour. Continue Cardizem, continue digoxin. IV Synthroid. PT, supportive care. She is not weanable at this stage. Family was notified. Prognosis remains guarded. She is a DNR. One-half hour critical care time.
--- NOTE | 2017-12-30 10:42 | PRG ---
DATE OF SERVICE: 12/30/2017 SUBJECTIVE: An 82-year-old female being seen for acute kidney injury. The patient is intubated and resting. PHYSICAL EXAMINATION: GENERAL: Patient is resting. VITAL SIGNS: Afebrile, pulse 72, breathing 16, blood pressure 138/56. HEAD/NECK: Normocephalic. Atraumatic. EYES: EOMI. No deformity. EARS: Clear. No ulcers. NOSE: Intact. No lesions. MOUTH: Clear. No discharge. THROAT: Clear. No exudate. LUNGS: Clear. No crackles. CARDIAC: S1, S2. No rub. ABDOMEN: Benign. BS+. GENITALIA/RECTUM: Norman absent. BACK/EXTREMITIES: Edema 0+ Ulcer- NEUROLOGICAL: Alert and motor intact. SKIN: Rash- Bruise- LYMPHATICS: Edema- Ulcer- LABORATORY DATA: Show hemoglobin 10, bicarbonate 15, creatinine 2.4. ASSESSMENT: 1. Acute kidney injury, nonoliguric, stable. 2. Chronic kidney disease stage 4, stable. 3. Hyponatremia, resolved. 4. Metabolic acidosis. Recommend starting sodium bicarbonate. 5. Hypocalcemia. Recommend calcium supplementation. No indication for dialysis.
--- NOTE | 2017-12-30 11:58 | RAD ---
ABDOMEN 2 VIEWS WITH 1 VIEW CHEST: Date: 12/30/17 HISTORY: Ileus. COMPARISON: Radiograph prior day. FINDINGS: Enteric tube is in place with tip near the gastric antrum. Decubitus views do not demonstrate free ai r. There is consolidation left lung base. No dilated or air-filled loops of large or small bowel. There is some cortical irregularity of the left superior pubic ramus. Degenerative changes in both SI joints. There appears to be abnormal lucency along the left upper quadrant of the abdomen, which may be seque lae of ascites. IMPRESSION: 1. No free air seen on the decubitus view. 2. Enteric tube tip gastric antrum. 3. No dilated or air-filled loops of large or small bowel. 4. Left lower and right upper lobe consolidation, as well as layering left effusion. POS: H
[2017-12-30] MEDS: Atorvastatin Calcium 10 MG TAB PO SCH (13:05)
--- NOTE | 2017-12-30 14:31 | PDOC.PN ---
- Subjective Encounter Start Date: 12/30/17 Encounter Start Time: 14:29 Subjective: care discussed w family at bedside -: no new overnight events - Objective Resuscitation Status: Resuscitation Status DNR:Do Not Resuscitate MAR Reviewed: Yes Vital Signs & Weight: Vital Signs (12 hours) Temp Pulse Resp BP Pulse Ox 12/30/17 13:54 99 138/55 L 12/30/17 12:04 92 144/49 H 12/30/17 12:03 92 23 H 97 12/30/17 12:00 99.9 F H 23 H 12/30/17 10:30 89 135/50 L 12/30/17 10:00 24 H 12/30/17 08:55 102 H 12/30/17 08:10 22 H 12/30/17 08:06 77 132/47 L 12/30/17 08:00 99.9 F H 22 H 12/30/17 06:48 91 138/54 L 12/30/17 06:45 96 12/30/17 06:19 79 19 96 12/30/17 06:00 22 H 12/30/17 04:00 98.3 F 19 12/30/17 03:14 74 Weight Admit Weight 141 lb Weight 154 lb 8.705 oz Most Recent Monitor Data Heart Rate from ECG 99 NIBP 152/54 NIBP BP-Mean 77 Respiration from ECG 22 SpO2 95 I&O: 12/29/17 12/30/17 12/31/17 06:59 06:59 06:59 Intake Total 4043.1 3138 433 Output Total 1797 1925 505 Balance 2246.1 1213 -72 Result Diagrams: 12/30/17 03:30 12/30/17 03:30 Radiology Reviewed by me: Yes (KUB- no free air) Phys Exam - Physical Examination intubated HEENT: moist MMs ETT Neck: no JVD reduced at bases Cardiovascular: irregular Gastrointestinal: soft, no distention distant bowel sounds Musculoskeletal: pulses present, edema present sedated Dx/Plan (1) Acute and chronic respiratory failure with hypoxia Code(s): J96.21 - ACUTE AND CHRONIC RESPIRATORY FAILURE WITH HYPOXIA Status: Acute Comment: Pt intubated following aspiration, continue with IV Abx. (2) Atrial fibrillation with RVR Code(s): I48.91 - UNSPECIFIED ATRIAL FIBRILLATION Status: Acute Comment: on IV Dogoxin,CCB and PO CCB (3) MAYRA (acute kidney injury) Code(s): N17.9 - ACUTE KIDNEY FAILURE, UNSPECIFIED Status: Acute Comment: No improvement (4) Aspiration pneumonia due to vomit Code(s): J69.0 - PNEUMONITIS DUE TO INHALATION OF FOOD AND VOMIT Status: Acute Comment: on Cefepime (5) Compression fracture of thoracic vertebra Code(s): S22.000A - WEDGE COMPRESSION FRACTURE OF UNSP THORACIC VERTEBRA, INIT Status: Acute Qualifiers: Encounter type: initial encounter (6) Hypernatremia Code(s): E87.0 - HYPEROSMOLALITY AND HYPERNATREMIA Status: Acute Comment: will change to D51/2 NS. (7) NSTEMI (non-ST elevated myocardial infarction) Code(s): I21.4 - NON-ST ELEVATION (NSTEMI) MYOCARDIAL INFARCTION Status: Acute Comment: Pt has PE, likely contributing to Demand ischemia. Pt on Aspirin/ BB, Anticoagulation with lovenox. (8) Pulmonary embolism Code(s): I26.99 - OTHER PULMONARY EMBOLISM WITHOUT ACUTE COR PULMONALE Status : Acute Comment: Pt stated on Lovenox 1mg /kg, pulmonary following. (9) Hypertension Code(s): I10 - ESSENTIAL (PRIMARY) HYPERTENSION Status: Chronic Qualifiers: Hypertension type: essential hypertension Qualified Code(s): I10 - Essential (primary) hypertension - Plan plan discussed w/ family, gonzalez catheter, continue antibiotics, PT/OT, respiratory therapy, DVT proph w/SCDs Poor prognosis. Cont management as below -: on lovenox for PE. monitor for any bleed. -: renal Fx not improving -: ? TF but no bowel sounds. GI following. IV reglan -: cont IV Digoxin,CCB and PO CCB. HR still uncontrolled * .vent support * Sharla would not survive current illness. * Supportive care Review of Systems - Review of Systems Other: can not be obtained due to intubated sedated state - Medications/Allergies Allergies/Adverse Reactions: Allergies Allergy/AdvReac Type Severity Reaction Status Date / Time Penicillins Allergy Mild Verified 12/25/15 23:07 Medications: Current Medications Acetaminophen (Tylenol) 650 mg PO Q4H PRN PRN Reason: Headache/Fever or Pain Albuterol/Ipratropium (Duoneb) 3 ml NEB [id number] [facility] Last Admin: 12/30/17 12:03 Dose: 3 ml Aspirin (Aspirin Chewable) 81 mg PO DAILY [facility] Last Admin: 12/30/17 08:54 Dose: 81 mg Atorvastatin Calcium (Lipitor) 10 mg PO DAILY [facility] Last Admin: 12/30/17 13:05 Dose: 10 mg Clonidine (Catapres) 0.1 mg PO Q6HR PRN PRN Reason: Hypertension Last Admin: 12/22/17 04:21 Dose: 0.1 mg Dextrose/Water (Dextrose 50%) 25 gm SLOW IVP PRN PRN PRN Reason: Hypoglycemia Digoxin (Lanoxin) 0.125 mg SLOW IVP DAILY [facility] Last Admin: 12/30/17 08:55 Dose: 0.125 mg Diltiazem HCl (Cardizem) 60 mg PO ACHS [facility] Last Admin: 12/30/17 13:05 Dose: 60 mg Enoxaparin Sodium (Lovenox) 60 mg SC 2100 [facility] Last Admin: 12/29/17 20:35 Dose: 60 mg Folic Acid (Folvite) 1 mg PO DAILY [facility] Last Admin: 12/30/17 08:54 Dose: 1 mg Glucagon (Glucagon) 1 mg IM PRN PRN PRN Reason: Hypoglycemia Hydralazine HCl (Apresoline) 10 mg SLOW IVP Q3H PRN PRN Reason: .SBP >170 Last Admin: 12/26/17 21:42 Dose: 10 mg Dextrose/Water (D5w) 1,000 mls @ 0 mls/hr IV .Q0M PRN PRN Reason: Hypoglycemia Cefepime HCl 1 gm/ Sodium (Chloride) 100 mls @ 200 mls/hr IVPB Q12HR [facility] Last Admin: 12/30/17 08:55 Dose: 100 mls Norepinephrine Bitartrate (Levophed) 250 mls @ 0 mls/hr IVPB INF PRN; Protocol PRN Reason: Blood Pressure Diltiazem HCl 125 mg/Miscellaneous Medication 1 each/ Sodium Chloride 125 mls @ 5 mls/hr IVPB INF [facility]; Protocol Last Admin: 12/29/17 20:59 Dose: 125 mls Sodium Chloride (Normal Saline 0.9%) 1,000 mls @ 150 mls/hr IV .Q6H40M [facility] Last Admin: 12/30/17 08:53 Dose: 1,000 mls Insulin Human Regular (Humulin R) 0 units SC .MILD SLIDING SCALE PRN PRN Reason: Mild Correctional Scale Insulin Human Regular (Humulin R) 0 units SC .BEDTIME SLIDING SC PRN PRN Reason: Bedtime Correctional Scale Last Admin: 12/30/17 05:51 Dose: 3 unit Levetiracetam (Keppra Oral Solution) 500 mg PO BID [facility] Last Admin: 12/30/17 08:56 Dose: 500 mg Levothyroxine Sodium (Synthroid) 65 mcg IVP 0600 [facility] Last Admin: 12/30/17 05:09 Dose: 65 mcg Lorazepam (Ativan) 2 mg SLOW IVP Q1H PRN PRN Reason: Breakthrough agitation Stop: 01/26/18 17:38 Last Admin: 12/29/17 13:49 Dose: 2 mg Methylprednisolone Sodium Succinate (Solu-Medrol) 20 mg IVP BID [facility] Last Admin: 12/30/17 08:54 Dose: 20 mg Metoclopramide HCl (Reglan) 10 mg IVP 0100,0900,1700 [facility] Last Admin: 12/30/17 08:57 Dose: 10 mg Metoprolol Tartrate (Lopressor) 25 mg PO BID [facility] Last Admin: 12/30/17 08:54 Dose: 25 mg Miscellaneous Medication (Pharmacy To Dose) 1 each IVPB PRN PRN PRN Reason: Pharmacy to dose Morphine Sulfate (Morphine) 2 mg SLOW IVP Q1H PRN PRN Reason: BREAKTHROUGH PAIN/AGITATION Stop: 01/26/18 17:38 Last Admin: 12/29/17 23:36 Dose: 2 mg Ondansetron HCl (Zofran) 4 mg SLOW IVP Q2H PRN PRN Reason: Nausea/Vomiting Last Admin: 12/27/17 15:24 Dose: 4 mg Pantoprazole Sodium (Protonix) 40 mg IVP DAILY [facility] Last Admin: 12/30/17 08:55 Dose: 40 mg Propofol (Diprivan) 1,000 mg IV INF PRN; Protocol PRN Reason: TO ACHIEVE GOAL RASS Stop: 01/26/18 17:38 Last Admin: 12/27/17 19:14 Dose: 1,000 mg Propofol (Diprivan Bolus) 20 mg IV Q5MIN PRN PRN Reason: BREAKTHROUGH AGITATION Stop: 01/26/18 17:38 Sodium Chloride (Flush - Normal Saline) 10 ml IVF Q12HR [facility] Last Admin: 12/30/17 08:57 Dose: 10 ml Sodium Chloride (Flush - Normal Saline) 10 ml IVF PRN PRN PRN Reason: Saline Flush Sulfasalazine (Azulfidine) 500 mg PO BID [facility] Last Admin: 12/30/17 08:54 Dose: 500 mg
--- NOTE | 2017-12-30 16:19 | PRG ---
DATE OF SERVICE: 12/30/2017 SUBJECTIVE: The patient is still intubated and sedated. According to nursing personnel, she is unch anged. Oral gastric output is 700 mL. It is unclear what timeframe this is over. OBJECTIVE: VITAL SIGNS: Pulse is 98, respiratory rate 24, blood pressure 133/48, temperature is 99.9. HEENT: Significant for oral gastric tube. CHEST: Clear. CARDIOVASCULAR: Regular rate and rhythm. ABDOMEN: Soft and nontender. Bowel sounds are hypoactive. LABORATORY DATA AND IMAGING DATA: Shows hemoglobin 10.0, hematocrit 30.7. Chemistries show CO2 of 1 5, BUN 87, creatinine 2.42, glucose 249. Acute abdominal series shows no bowel obstruction and only a single layer fluid available in decubitus view. ASSESSMENT: 1. Ileus. 2. Atrial fibrillation. 3. Dementia. 4. Respiratory failure. 5. Pulmonary embolism. RECOMMENDATIONS: 1. Continue IV Reglan. 2. Trial of slow tube feedings with check of residuals.
[2017-12-30] MEDS: Enoxaparin Sodium 60 MG/0.6 ML SYRINGE SC SCH (20:09)
[2017-12-30] MEDS: Diltiazem HCl 125 MG, Admixture Fee 1 EACH in Sodium Chloride 0.9% 100 ML IVPB SCH (20:27)
[2017-12-31] MEDS: Metoclopramide HCl 10 MG/2 ML VIAL IVP SCH ×4 (00:12→23:31)
[2017-12-31 04:52] LABS: Chloride 120 mmol/L (98-107); Potassium 3.1 mmol/L (3.5-5.1); Sodium 146 mmol/L (136-145)
[2017-12-31 04:53] LABS: Calcium 6.7 mg/dL (7.8-10.44); Glucose 182 mg/dL (83-110)
[2017-12-31 04:54] LABS: Anion Gap 14 mmol/L (10-20); Carbon Dioxide 15 mmol/L (23-31)
[2017-12-31 04:56] LABS: Calc. Creatinine Clearance 26 mL/min (70-130); Estimated GFR-MDRD 26
[2017-12-31 04:57] LABS: BUN (Urea Nitrogen) 78 mg/dL (9.8-20.1)
[2017-12-31 05:05] LABS: Band 9 % (5-11); Hemoglobin 9.8 g/dL (12.0-16.0); Hypochromia SLIGHT = 6-15 cells (100X) (0-5/hpf); MDiff Complete? YES; Macrocytosis SLIGHT = 6-15 cells (100X) (0-5/hpf); Mean Corpuscular HGB CONC 32.6 g/dL (32.0-36.0); Mean Corpuscular Hemoglobin 35.2 pg (27.0-31.0); Mean Platelet Volume 8.7 fL (7.4-10.4); Monocytes 2 % (0-10); Neutrophil 89 % (42-75); Nucleated RBC 6 % (0); PLT Morphology Comment Appears Adequate; Platelet Count 176 thou/uL (130-400); Polychromasia SLIGHT = 2-3 cells (100X) (0-2/hpf); RBC Distribution Width 15.1 % (11.5-14.5); Red Blood Cell (RBC) Count 2.77 mill/uL (4.20-5.40); White Blood Cell (WBC) Count 36.6 thou/uL (4.8-10.8)
[2017-12-31] MEDS: Levothyroxine 100 MCG SDV IVP SCH (05:39)
[2017-12-31] MEDS: Insulin Regular 300 UNITS/3 ML VIAL SC PRN ×2 (05:59→19:30)
[2017-12-31] MEDS: Sodium Chloride 0.9% 1,000 ML IV SCH (06:04)
[2017-12-31] MEDS ORDERED: Bisacodyl 10 MG SUPP PR PRN (08:16)
--- NOTE | 2017-12-31 08:22 | RAD ---
PORTABLE AP CHEST: Date: 12/31/17 HISTORY: On ventilator. COMPARISON: 12/29/17. FINDINGS: Nasogastric tube and endotracheal tube remain in place and unchanged in position. Cardiac silhouette and pulmonary vasculature are within normal limits. Air space opacity within the right upper lung zon e is again seen and slightly increased from the study on 12/30/17. There are parenchymal changes also again present at the left lung base. Vascular calcifications seen in thoracic aorta. No other interv al change. IMPRESSION: Mild increase in size of parenchymal opacity in the right upper lung zone. Probable minimal parenchym al changes in the lateral right mid lung zone, as well as stable parenchymal change at the left lung base. Findings may be related to multifocal pneumonia. Follow-up to resolution is recommended. POS: [place]
--- NOTE | 2017-12-31 08:57 | PRG ---
DATE OF SERVICE: 12/31/2017 This morning she is still pretty much encephalopathic, unresponsive, not on much sedation. PHYSICAL EXAMINATION: VITAL SIGNS: Temperature is 99, blood pressure 159/57, sats are 95%. I's and O's are improved 3942 in, 2415 out. CHEST: Chest reveals decreased breath sounds, no wheezing. CARDIAC: Normal S1, S2. No gallops. ABDOMEN: Soft, no masses. LABORATORY: White count of 36,000, H&H is 9 and 30, platelet count 176. Creatinine 1.8, much improv ed. Glucose 182. IMPRESSION: 1. Ileus. 2. Metabolic encephalopathy. 3. Respiratory failure. 4. Aspiration pneumonia. 5. Pulmonary embolism. 6. Major metabolic encephalopathy. 7. Marked leukocytosis. PLAN: I have added micafungin per present regime. Bronch washings are only growing Leydi. She is not tolerating the feedings unfortunately, I have increased the Reglan, Dulcolax support is being gi vishal. Will discuss with family. Prognosis remains guarded. She is still on Lovenox for her PE, low dose d igoxin. Overall, prognosis is grave. Considering a CT of the head today after discussed with the derrick krishnan at length. One-half hour critical care time.
[2017-12-31] MEDS ORDERED: Pot Chloride/Pot Bicarb/Cit Ac 25 mEq Effervescent Tablet PO SCH (09:00)
[2017-12-31] MEDS: Dextrose 5 %-0.45 % NaCl 1,000 ML IV SCH ×2 (09:23→20:23)
[2017-12-31] MEDS: Micafungin 100 MG in Sodium Chloride 0.9% 100 ML IVPB SCH (09:23)
[2017-12-31] MEDS: Cefepime 1 GM in Sodium Chloride 0.9% 100 ML IVPB SCH ×2 (09:26→20:24)
[2017-12-31] MEDS: Atorvastatin Calcium 10 MG TAB PO SCH (09:27)
[2017-12-31] MEDS: Folic Acid 1 MG TAB PO SCH (09:28)
[2017-12-31] MEDS: Digoxin 0.5 MG/2 ML AMP SLOW IVP SCH (09:28)
[2017-12-31] MEDS: levETIRAcetam 500 mg/5 ml Oral Solution PO SCH ×2 (09:28→20:27)
[2017-12-31] MEDS: sulfaSALAzine 500 MG TAB PO SCH ×2 (09:29→20:25)
[2017-12-31] MEDS: Pantoprazole 40 MG VIAL IVP SCH (09:29)
[2017-12-31] MEDS: Metoprolol Tartrate 25 MG TAB PO SCH ×2 (09:29→20:25)
--- NOTE | 2017-12-31 09:43 | PRG ---
DATE OF SERVICE: 12/31/2017 SUBJECTIVE: An 82-year-old female being seen for acute kidney injury. The patient is resting. OBJECTIVE: GENERAL: The patient is resting. VITAL SIGNS: Afebrile, pulse , breathing 16, blood pressure was 157/88. GENERAL APPEARANCE AND MENTAL STATUS: Fair. HEAD/NECK: Normocephalic. Atraumatic. EYES: EOMI. No deformity. EARS: Clear. No ulcers. NOSE: Intact. No lesions. MOUTH: Clear. No discharge. THROAT: Clear. No exudate. LUNGS: Clear. No crackles. CARDIAC: S1, S2. No rub. ABDOMEN: Benign. BS+. GENITALIA/RECTUM: Norman absent. BACK/EXTREMITIES: Edema 0+ Ulcer-. NEUROLOGICAL: The patient is resting. SKIN: Rash- Bruise-. LYMPHATICS: Edema- Ulcer-. LABORATORY DATA: Labs showed hemoglobin 9.8. Creatinine 1.8, sodium 146, bicarbonate 15. ASSESSMENT AND RECOMMENDATIONS: 1. Acute kidney injury with chronic kidney disease, improving. 2. Hypernatremia. We would recommend starting D5W at 50 mL per hour. 3. Hypokalemia. Recommend potassium replacement. 4. Metabolic acidosis. Recommend bicarbonate replacement.
--- NOTE | 2017-12-31 14:58 | PDOC.PN ---
- Subjective Encounter Start Date: 12/31/17 Encounter Start Time: 14:56 Subjective: remians intubated. not tolerating TF -: urine output better -: family undecided about the group home plans - Objective Resuscitation Status: Resuscitation Status DNR:Do Not Resuscitate MAR Reviewed: Yes Vital Signs & Weight: Vital Signs (12 hours) Temp Pulse Resp BP Pulse Ox 12/31/17 14:38 93 166/60 H 12/31/17 14:00 30 H 12/31/17 13:17 102 H 170/67 H 12/31/17 13:13 96 26 H 95 12/31/17 12:00 99.9 F H 27 H 12/31/17 10:10 108 H 150/49 H 12/31/17 10:00 30 H 12/31/17 09:28 98 12/31/17 08:00 99.1 F 88 29 H 95 12/31/17 06:57 99 157/58 H 12/31/17 06:54 91 24 H 95 12/31/17 06:00 22 H 12/31/17 05:00 99.0 F 12/31/17 04:00 27 H Weight Admit Weight 141 lb Weight 164 lb 0.383 oz Most Recent Monitor Data Heart Rate from ECG 95 NIBP 166/60 NIBP BP-Mean 101 Respiration from ECG 25 SpO2 97 I&O: 12/30/17 12/31/17 01/01/18 06:59 06:59 06:59 Intake Total 3138 3942.0 802 Output Total 1925 2415 700 Balance 1213 1527.0 102 Result Diagrams: 12/31/17 04:00 12/31/17 04:00 Additional Labs: Microbiology 12/27/17 17:35 Bronchial Washing - Aspirate Respiratory Culture - Final Presumptive Leydi albicans 12/23/17 22:59 Urine Straight Catheter Urine Culture - Final NO GROWTH AT 36 HOURS 12/23/17 22:49 Venous blood - Left Hand Blood Culture - Final NO GROWTH IN 5 DAYS 12/23/17 22:49 Venous blood - Left Arm Blood Culture - Final NO GROWTH IN 5 DAYS 12/21/17 13:33 Venous blood - Right Hand Blood Culture - Final NO GROWTH IN 5 DAYS 12/21/17 13:31 Venous blood - Left Arm Blood Culture - Final NO GROWTH IN 5 DAYS 12/21/17 12:16 Urine Straight Catheter Urine Culture - Final Escherichia coli Laboratory Tests 12/26/17 12/27/17 12/28/17 07:17 03:35 04:10 Creatinine 1.00 1.43 H 2.59 H 12/29/17 12/29/17 12/30/17 03:00 18:00 03:30 Creatinine 2.64 H 2.38 H 2.42 H 12/31/17 04:00 Creatinine 1.88 H Phys Exam - Physical Examination Constitutional: NAD Intubated HEENT: moist MMs ETT Neck: no nodes, no JVD, supple, full ROM Respiratory: no wheezing, no rales, no rhonchi, clear to auscultation bilateral reduced at bases Cardiovascular: RRR, no significant murmur Gastrointestinal: soft, non-tender BS distant Musculoskeletal: no edema, pulses present Skin: no rash Dx/Plan (1) Acute and chronic respiratory failure with hypoxia Code(s): J96.21 - ACUTE AND CHRONIC RESPIRATORY FAILURE WITH HYPOXIA Status: Acute Comment: Pt intubated following aspiration, continue with IV Abx. (2) Atrial fibrillation with RVR Code(s): I48.91 - UNSPECIFIED ATRIAL FIBRILLATION Status: Acute Comment: on IV Dogoxin,CCB and PO CCB (3) MAYRA (acute kidney injury) Code(s): N17.9 - ACUTE KIDNEY FAILURE, UNSPECIFIED Status: Acute Comment: Mild improvement (4) Aspiration pneumonia due to vomit Code(s): J69.0 - PNEUMONITIS DUE TO INHALATION OF FOOD AND VOMIT Status: Acute Comment: on Cefepime.now also on micafungin due to Leydi on Bronchial washing (5) Compression fracture of thoracic vertebra Code(s): S22.000A - WEDGE COMPRESSION FRACTURE OF UNSP THORACIC VERTEBRA, INIT Status: Acute Qualifiers: Encounter type: initial encounter (6) Hypernatremia Code(s): E87.0 - HYPEROSMOLALITY AND HYPERNATREMIA Status: Acute Comment: will change to D5W (7) NSTEMI (non-ST elevated myocardial infarction) Code(s): I21.4 - NON-ST ELEVATION (NSTEMI) MYOCARDIAL INFARCTION Status: Acute Comment: Pt has PE, likely contributing to Demand ischemia. Pt on Aspirin/ BB, Anticoagulation with lovenox. (8) Pulmonary embolism Code(s): I26.99 - OTHER PULMONARY EMBOLISM WITHOUT ACUTE COR PULMONALE Status : Acute Comment: Pt stated on Lovenox 1mg /kg, pulmonary following. (9) Hypertension Code(s): I10 - ESSENTIAL (PRIMARY) HYPERTENSION Status: Chronic Qualifiers: Hypertension type: essential hypertension Qualified Code(s): I10 - Essential (primary) hypertension - Plan continue antibiotics, PT/OT, DVT proph w/lovenox, DVT proph w/SCDs Cont supportive care as above .family to decide comfort care Vs trach/PEG -: monitor hemodynamics <urine output -: am labs. -: cont lovenox at renal dosing.cont ABx,antifungal -: poor prognosis * . Review of Systems - Review of Systems Other: can not be obtained due to intubated and sedated state - Medications/Allergies Allergies/Adverse Reactions: Allergies Allergy/AdvReac Type Severity Reaction Status Date / Time Penicillins Allergy Mild Verified 12/25/15 23:07 Medications: Current Medications Acetaminophen (Tylenol) 650 mg PO Q4H PRN PRN Reason: Headache/Fever or Pain Albuterol/Ipratropium (Duoneb) 3 ml NEB [id number] [facility] Last Admin: 12/31/17 13:13 Dose: 3 ml Aspirin (Aspirin Chewable) 81 mg PO DAILY [facility] Last Admin: 12/31/17 09:27 Dose: 81 mg Atorvastatin Calcium (Lipitor) 10 mg PO DAILY [facility] Last Admin: 12/31/17 09:27 Dose: 10 mg Bisacodyl (Dulcolax) 10 mg MS Q8H PRN PRN Reason: Constipation Last Admin: 12/31/17 09:30 Dose: 10 mg Clonidine (Catapres) 0.1 mg PO Q6HR PRN PRN Reason: Hypertension Last Admin: 12/22/17 04:21 Dose: 0.1 mg Dextrose/Water (Dextrose 50%) 25 gm SLOW IVP PRN PRN PRN Reason: Hypoglycemia Digoxin (Lanoxin) 0.125 mg SLOW IVP DAILY [facility] Last Admin: 12/31/17 09:28 Dose: 0.125 mg Diltiazem HCl (Cardizem) 60 mg PO ACHS [facility] Last Admin: 12/31/17 12:22 Dose: Not Given Enoxaparin Sodium (Lovenox) 60 mg SC 2100 [facility] Last Admin: 12/30/17 20:09 Dose: 60 mg Folic Acid (Folvite) 1 mg PO DAILY [facility] Last Admin: 12/31/17 09:28 Dose: 1 mg Glucagon (Glucagon) 1 mg IM PRN PRN PRN Reason: Hypoglycemia Hydralazine HCl (Apresoline) 10 mg SLOW IVP Q3H PRN PRN Reason: .SBP >170 Last Admin: 12/26/17 21:42 Dose: 10 mg Dextrose/Water (D5w) 1,000 mls @ 0 mls/hr IV .Q0M PRN PRN Reason: Hypoglycemia Cefepime HCl 1 gm/ Sodium (Chloride) 100 mls @ 200 mls/hr IVPB Q12HR [facility] Last Admin: 12/31/17 09:26 Dose: 100 mls Norepinephrine Bitartrate (Levophed) 250 mls @ 0 mls/hr IVPB INF PRN; Protocol PRN Reason: Blood Pressure Diltiazem HCl 125 mg/Miscellaneous Medication 1 each/ Sodium Chloride 125 mls @ 5 mls/hr IVPB INF DELIO; Protocol Last Admin: 12/30/17 20:27 Dose: 125 mls Micafungin Sodium 100 mg/ (Sodium Chloride) 100 mls @ 100 mls/hr IVPB 0900 [facility] Last Admin: 12/31/17 09:23 Dose: 100 mls Dextrose/Sodium Chloride (D5 1/2 Ns) 1,000 mls @ 100 mls/hr IV .Q10H [facility] Last Admin: 12/31/17 09:23 Dose: 1,000 mls Insulin Human Regular (Humulin R) 0 units SC .MILD SLIDING SCALE PRN PRN Reason: Mild Correctional Scale Last Admin: 12/31/17 05:59 Dose: 2 unit Insulin Human Regular (Humulin R) 0 units SC .BEDTIME SLIDING SC PRN PRN Reason: Bedtime Correctional Scale Last Admin: 12/30/17 05:51 Dose: 3 unit Levetiracetam (Keppra Oral Solution) 500 mg PO BID [facility] Last Admin: 12/31/17 09:28 Dose: 500 mg Levothyroxine Sodium (Synthroid) 65 mcg IVP 0600 [facility] Last Admin: 12/31/17 05:39 Dose: 65 mcg Lorazepam (Ativan) 2 mg SLOW IVP Q1H PRN PRN Reason: Breakthrough agitation Stop: 01/26/18 17:38 Last Admin: 12/29/17 13:49 Dose: 2 mg Methylprednisolone Sodium Succinate (Solu-Medrol) 20 mg IVP DAILY [facility] Last Admin: 12/31/17 09:29 Dose: 20 mg Metoclopramide HCl (Reglan) 10 mg IVP Q6HR [facility] Last Admin: 12/31/17 12:26 Dose: 10 mg Metoprolol Tartrate (Lopressor) 25 mg PO BID [facility] Last Admin: 12/31/17 09:29 Dose: 25 mg Miscellaneous Medication (Pharmacy To Dose) 1 each IVPB PRN PRN PRN Reason: Pharmacy to dose Ondansetron HCl (Zofran) 4 mg SLOW IVP Q2H PRN PRN Reason: Nausea/Vomiting Last Admin: 12/27/17 15:24 Dose: 4 mg Pantoprazole Sodium (Protonix) 40 mg IVP DAILY [facility] Last Admin: 12/31/17 09:29 Dose: 40 mg Potassium Bicarb/Potassium Chloride (K-Lyte Cl) 25 meq PO QA-[facility] Propofol (Diprivan) 1,000 mg IV INF PRN; Protocol PRN Reason: TO ACHIEVE GOAL RASS Stop: 01/26/18 17:38 Last Admin: 12/27/17 19:14 Dose: 1,000 mg Propofol (Diprivan Bolus) 20 mg IV Q5MIN PRN PRN Reason: BREAKTHROUGH AGITATION Stop: 01/26/18 17:38 Sodium Chloride (Flush - Normal Saline) 10 ml IVF Q12HR [facility] Last Admin: 12/31/17 09:29 Dose: 10 ml Sodium Chloride (Flush - Normal Saline) 10 ml IVF PRN PRN PRN Reason: Saline Flush Sulfasalazine (Azulfidine) 500 mg PO BID [facility] Last Admin: 12/31/17 09:29 Dose: 500 mg
--- NOTE | 2017-12-31 19:09 | PRG ---
DATE OF SERVICE: 12/31/2017 SUBJECTIVE: The patient continues to be on the ventilator. She did not tolerate tube feedings yeste rday and those have subsequently been stopped. She has had no bowel movements. OBJECTIVE: VITAL SIGNS: Respiratory rate is 26, blood pressure 137/70, pulse 101, temperature is 98.4. HEENT: Significant for orotracheal tube and oral gastric tube. NECK: Supple. CHEST: Clear. CARDIOVASCULAR: Regular rate and rhythm. ABDOMEN: Soft, nontender. Bowel sounds are absent. EXTREMITIES: Normal. LABORATORY DATA AND IMAGING: Shows a white blood cell count of 36.6, hemoglobin of 9.8, hematocrit o f 30.0, MCV of 108. Chemistry shows sodium 146, potassium 3.1, chloride 120, CO2 of 15, BUN 78, crea tinine 1.88, glucose 182. Chest x-ray from 12/31/2017 show mild increase in size and parenchymal opa [place] in the right upper lung zone consistent with multifocal pneumonia. ASSESSMENT: 1. Pneumonia with respiratory failure. 2. Atrial fibrillation with rapid ventricular rate. 3. Ileus. 4. Compression fracture of thoracic vertebrae. 5. Pulmonary embolism. PLAN: 1. I had a long discussion with the family members. At this point, I want to continue full support and treatment at least until the patient has been ventilated for approximately a week and then we lorenzo l reassess. 2. CT abdomen without IV contrast. 3. Begin TPN once patient has a central line placement. 4. We will follow with you.
[2017-12-31] MEDS: Enoxaparin Sodium 60 MG/0.6 ML SYRINGE SC SCH (20:27)
[2017-12-31] MEDS: Diltiazem HCl 125 MG, Admixture Fee 1 EACH in Sodium Chloride 0.9% 100 ML IVPB SCH (21:18)
[2018-01-01] MEDS: Insulin Regular 300 UNITS/3 ML VIAL SC PRN ×3 (00:01→23:14)
[2018-01-01 05:21] LABS: ALT (SGPT) 575 U/L (8-55); AST (SGOT) 236 U/L (5-34); Albumin 2.2 g/dL (3.4-4.8); Alkaline Phosphatase 126 U/L (40-150); Anion Gap 13 mmol/L (10-20); BUN (Urea Nitrogen) 67 mg/dL (9.8-20.1); Bilirubin, Total 1.1 mg/dL (0.2-1.2); Calc. Creatinine Clearance 34 mL/min (70-130); Calcium 6.8 mg/dL (7.8-10.44); Carbon Dioxide 17 mmol/L (23-31); Chloride 122 mmol/L (98-107); Estimated GFR-MDRD 33; Globulin 3.1 g/dL (2.4-3.5); Glucose 193 mg/dL (83-110); Potassium 3.7 mmol/L (3.5-5.1); Protein, Total 5.3 g/dL (6.0-8.3); Sodium 148 mmol/L (136-145)
[2018-01-01] MEDS: Metoclopramide HCl 10 MG/2 ML VIAL IVP SCH ×4 (05:39→23:12)
[2018-01-01] MEDS: Dextrose 5 %-0.45 % NaCl 1,000 ML IV SCH ×2 (05:39→17:15)
[2018-01-01] MEDS: Levothyroxine 100 MCG SDV IVP SCH (05:39)
[2018-01-01 05:58] LABS: Band 18 % (5-11); Lymphocytes 1 % (21-51); MDiff Complete? YES; Mean Corpuscular HGB CONC 32.2 g/dL (32.0-36.0); Mean Corpuscular Hemoglobin 34.9 pg (27.0-31.0); Mean Platelet Volume 9.3 fL (7.4-10.4); Monocytes 1 % (0-10); Neutrophil 80 % (42-75); Nucleated RBC 10 % (0); Platelet Count 165 thou/uL (130-400); RBC Distribution Width 15.4 % (11.5-14.5); Red Blood Cell (RBC) Count 2.86 mill/uL (4.20-5.40); White Blood Cell (WBC) Count 37.5 thou/uL (4.8-10.8)
--- NOTE | 2018-01-01 08:48 | PRG ---
DATE OF SERVICE: 01/01/2018 This morning she is intubated on the vent, no sedation. PHYSICAL EXAMINATION: VITAL SIGNS: Pulse 102, blood pressure 172/78, sats 90%, respiration is 28. I's & O's have been 394 2 in, 2415 out. Her maximum temperature is 97. CHEST: Minimal rhonchi. CARDIAC: Atrial fibrillation. ABDOMEN: Distended, but soft. LABORATORY: Shows increasing LFT with an AST of 236, ALT of 575. White count is 37,000, H&H 10 and 30, platelet count 165. X-ray shows a right-sided infiltrate. IMPRESSION: 1. Multiorgan failure. 2. Metabolic encephalopathy. 3. Respiratory failure. 4. Renal failure, improving. 5. Abnormal liver function tests, probably shock liver. PLAN: She is not tolerating the feedings. If the wants to continue supportive care we may n eed TPN. Otherwise, PT and supportive care. One-half hour critical care time.
--- NOTE | 2018-01-01 09:00 | RAD ---
SINGLE VIEW OF THE CHEST: COMPARISON: 12/31/17. HISTORY: Ventilated patient with respiratory failure. FINDINGS: A single view of the chest shows a normal-size cardiomediastinal silhouette. The NG tube and endotra cheal tube are unchanged in position. Diffuse increased interstitial lung markings are present. The re may be superimposed multifocal airspace opacities in the lungs, unchanged. IMPRESSION: Stable exam. POS: [facility]
[2018-01-01] MEDS: Folic Acid 1 MG TAB PO SCH (09:08)
[2018-01-01] MEDS: Pot Chloride/Pot Bicarb/Cit Ac 25 mEq Effervescent Tablet PO SCH (09:08)
[2018-01-01] MEDS: Atorvastatin Calcium 10 MG TAB PO SCH (09:08)
[2018-01-01] MEDS: levETIRAcetam 500 mg/5 ml Oral Solution PO SCH ×2 (09:08→20:40)
[2018-01-01] MEDS: Metoprolol Tartrate 25 MG TAB PO SCH ×2 (09:08→20:40)
--- NOTE | 2018-01-01 10:22 | PDOC.CTH ---
Cardiology Progress Note - Subjective No new changes noted overnight - Objective Vital Signs Temp Pulse Resp BP Pulse Ox 01/01/18 06:54 92 154/57 H 01/01/18 06:52 88 24 H 96 01/01/18 06:00 26 H 01/01/18 04:00 25 H 01/01/18 03:02 97 01/01/18 03:00 97.8 F 89 153/63 H 01/01/18 02:00 26 H 01/01/18 00:56 97 24 H 96 01/01/18 00:00 25 H 12/31/17 23:00 98.4 F 12/31/17 22:28 96 153/66 H Admit Weight 141 lb Weight 162 lb 4.163 oz 12/31/17 01/01/18 01/02/18 06:59 06:59 06:59 Intake Total 3942.0 3050 Output Total 2415 3300 Balance 1527.0 -250 - Physical Examination General/Neuro: NAD, other: (I/S) Neck: no JVD present Lungs: CTA, unlabored respirations Heart: other: (irr) Abdomen: NT/ND, soft Extremities: + femoral B - Labs Result Diagrams: 01/01/18 04:05 01/01/18 04:05 Troponin/CKMB CK-MB (CK-2) 5.1 ng/mL (0-6.6) 12/23/17 22:49 Troponin I 1.902 ng/mL (< 0.028) H* 12/25/17 20:06 - Assessment/Plan aspiration pneumonia ileus afib, SVT CAD s/p stent Respiratory failure No CV changes TPN to ensue Rate controlled. sTill on lovenox QD secondary to RI
--- NOTE | 2018-01-01 11:24 | PDOC.CNTRL ---
Central Line Procedure Note - Procedure Date: 01/01/18 Time: 11:15 - PreProcedure Diagnosis: 1. Need for central venous access for TPN 2. Multiorgan failure 3. Metabolic Encephalopathy 4. Respiratory Failure 5. Ileus 6. Pneumonia 7. A-fib with RVR - PostProcedure Diagnosis: Same as above - Description Focused site: internal jugular: Right Ultrasound guidance: Yes Patient tolerated procedure: well Procedure in Details: INDICATION: Need for central venous access PROCEDURE MARGARINE CHURN OPERATOR: Sheyla Mosley MD ATTENDING PHYSICIAN: Dr. Borrego In Attendance throughout the entire procedure CONSENT: Consent was obtained from the patient's prior to the procedure. Indications, risks, and benefits were explained at length. PROCEDURE SUMMARY: A time out was performed. My hands were washed immediately prior to the procedure. I wore a surgical cap, mask with protective eyewear, full gown and sterile gloves throughout the procedure. The patient was placed in Trendelenburg position. Right chest/neck region was prepped using chlorhexidine scrub and draped in sterile fashion using a full sheet drape. The medial and lateral heads of the sternocleidomastoid muscle were identified as was the carotid pulse. The Internal Jugular vein was identified using the ultrasound. Anesthesia was achieved over the vein using 1% lidocaine. Using real-time out of plane guidance, the introducer needle was inserted into the Internal Jugular vein under direct ultrasound visualization. Venous blood was withdrawn on the second attempt. The syringe was removed and a guidewire was advanced into the introducer needle. The guidewire was visualized in the Internal Jugular Vein by ultrasound. A small incision was made at the skin surface with a scalpel and the introducer needle was exchanged for a dilator over the guidewire. After appropriate dilation was obtained, the dilator was exchanged over the wire for a triple lumen central venous catheter. The wire was removed and the catheter was sutured in place at 18 cm. A sterile dressing was placed over the catheter at the insertion site. The patient tolerated the procedure without any hemodynamic compromise. At time of procedure completion, all ports aspirated and flushed properly. Post-procedure chest x-ray is pending at this time. Estimated blood loss is 10 mL.
[2018-01-01] MEDS: Digoxin 0.5 MG/2 ML AMP SLOW IVP SCH (11:32)
[2018-01-01] MEDS: Pantoprazole 40 MG VIAL IVP SCH (11:37)
[2018-01-01] MEDS: Cefepime 1 GM in Sodium Chloride 0.9% 100 ML IVPB SCH ×2 (11:38→20:48)
[2018-01-01] MEDS: Micafungin 100 MG in Sodium Chloride 0.9% 100 ML IVPB SCH (11:40)
--- NOTE | 2018-01-01 12:14 | RAD ---
CHEST ONE VIEW: History: Line placement. Comparison: Radiograph same day. FINDINGS: A right IJ central venous catheter is in place with tip at the right atrium. Endotracheal tube tip is over the clavicles. Enteric tube tip below the diaphragm, out of the field of view. Increased right upper lobe airspace opacity. Size increase right lobe layering effusion. Cardiac silh ouette is similar. IMPRESSION: 1. New right IJ central venous catheter tip in the right atrium. 2. Size increase of right layering pleural effusion as well as right upper lobe airspace opacity, con cerning for infection or aspiration. POS: [facility]
--- NOTE | 2018-01-01 12:33 | CT ---
CT OF THE ABDOMEN AND PELVIS WITHOUT IV CONTRAST: INDICATION: Concern for possible ileus. COMPARISON: CTA aortic dissection protocol dated 04/11/15 and acute abdominal series 12/30/17. FINDINGS: There are small bilateral pleural effusions, right greater than left and bibasilar atelectasis. The reticulonodular irregularities seen scattered throughout the lower lobes can be infectious or inflamm atory in etiology. A gastric catheter is present within the region of the gastric antrum. There is diffuse anasarca. Unopacified liver and spleen are unremarkable. There is mild ascites. Unopacified pancreas and adrenal glands are unremarkable. Unopacified kidneys are unremarkable. Karan pacified kidneys are unremarkable. There is marked wall thickening involving the sigmoid colon, descending colon, transverse colon, and ascending colon consistent with a diffuse colitis. The appendix is not definitely seen. The ileum i s mildly dilated. There is healed fracture deformity involving the left obturator ring. There is diffuse osteopenia. There is a healed insufficiency fracture involving the left sacral ala. There are bilateral pars def ects at L5. There is scattered degenerative and osteoarthritic change. IMPRESSION: 1. Diffuse colitis which may be infectious or inflammatory in etiology. 2. Mild prominence of the distal small bowel may be related to some obstructive physiology at the le anam of the ileocecal valve from the patient's colitis. 3. Small bilateral pleural effusions, ascites, and anasarca may be related to third spacing. 4. Reticulonodularity of both lower lobes may be related to a bronchiolitis of infectious or inflamm atory etiology. 5. Gastric catheter. POS: [facility]
[2018-01-01] MEDS: Dextrose 5% in Water 1,000 ML IV SCH (15:19)
--- NOTE | 2018-01-01 15:35 | PDOC.PN ---
- Subjective Encounter Start Date: 01/01/18 Encounter Start Time: 15:33 Subjective: remains intubated.started on TPN after Central line placed -: no BM per RN.remains fully vent dependent - Objective Resuscitation Status: Resuscitation Status DNR:Do Not Resuscitate MAR Reviewed: Yes Vital Signs & Weight: Vital Signs (12 hours) Temp Pulse Resp BP Pulse Ox 01/01/18 14:36 105 H 155/68 H 01/01/18 14:00 27 H 01/01/18 13:07 96 160/63 H 01/01/18 13:05 97 21 H 96 01/01/18 12:00 98.4 F 24 H 01/01/18 11:32 94 01/01/18 10:40 91 160/63 H 01/01/18 08:00 98.6 F 96 27 H 98 01/01/18 06:54 92 154/57 H 01/01/18 06:52 88 24 H 96 01/01/18 06:00 26 H 01/01/18 04:00 25 H Weight Admit Weight 141 lb Weight 162 lb 4.163 oz Most Recent Monitor Data Heart Rate from ECG 96 NIBP 157/73 NIBP BP-Mean 107 Respiration from ECG 21 SpO2 98 I&O: 12/31/17 01/01/18 01/02/18 06:59 06:59 06:59 Intake Total 3942.0 3050 882 Output Total 2415 3300 760 Balance 1527.0 -250 122 Result Diagrams: 01/01/18 04:05 01/01/18 04:05 Additional Labs: Accuchecks 01/01/18 12/31/17 12/31/17 12:26 23:35 19:27 POC Glucose 162 H 215 H 242 H Microbiology 12/27/17 17:35 Bronchial Washing - Aspirate Respiratory Culture - Final Presumptive Leydi albicans 12/23/17 22:59 Urine Straight Catheter Urine Culture - Final NO GROWTH AT 36 HOURS 12/23/17 22:49 Venous blood - Left Hand Blood Culture - Final NO GROWTH IN 5 DAYS 12/23/17 22:49 Venous blood - Left Arm Blood Culture - Final NO GROWTH IN 5 DAYS 12/21/17 13:33 Venous blood - Right Hand Blood Culture - Final NO GROWTH IN 5 DAYS 12/21/17 13:31 Venous blood - Left Arm Blood Culture - Final NO GROWTH IN 5 DAYS 12/21/17 12:16 Urine Straight Catheter Urine Culture - Final Escherichia coli Laboratory Tests 12/21/17 12/23/17 12/26/17 12:23 22:49 07:17 AST 22 20 26 ALT 10 11 12 01/01/18 04:05 AST 236 H ALT 575 H Phys Exam - Physical Examination Constitutional: NAD Intubated HEENT: moist MMs ETT Neck: no nodes, no JVD, supple, full ROM reduced at bases Cardiovascular: no significant murmur, irregular no bowel sounds Musculoskeletal: pulses present, edema present Dx/Plan (1) Acute and chronic respiratory failure with hypoxia Code(s): J96.21 - ACUTE AND CHRONIC RESPIRATORY FAILURE WITH HYPOXIA Status: Acute Comment: Pt intubated following aspiration, continue with IV Abx. (2) Atrial fibrillation with RVR Code(s): I48.91 - UNSPECIFIED ATRIAL FIBRILLATION Status: Acute Comment: on IV Dogoxin,CCB and PO CCB (3) MAYRA (acute kidney injury) Code(s): N17.9 - ACUTE KIDNEY FAILURE, UNSPECIFIED Status: Acute Comment: improving (4) Ileus Code(s): K56.7 - ILEUS, UNSPECIFIED Status: Acute Comment: TPN to be initiated (5) Aspiration pneumonia due to vomit Code(s): J69.0 - PNEUMONITIS DUE TO INHALATION OF FOOD AND VOMIT Status: Acute Comment: on Cefepime.now also on micafungin due to Leydi on Bronchial washing (6) Pulmonary embolism Code(s): I26.99 - OTHER PULMONARY EMBOLISM WITHOUT ACUTE COR PULMONALE Status : Acute Comment: Pt stated on Lovenox 1mg /kg, pulmonary following. (7) Compression fracture of thoracic vertebra Code(s): S22.000A - WEDGE COMPRESSION FRACTURE OF UNSP THORACIC VERTEBRA, INIT Status: Acute Qualifiers: Encounter type: initial encounter (8) Hypernatremia Code(s): E87.0 - HYPEROSMOLALITY AND HYPERNATREMIA Status: Acute Comment: improved w D5W (9) NSTEMI (non-ST elevated myocardial infarction) Code(s): I21.4 - NON-ST ELEVATION (NSTEMI) MYOCARDIAL INFARCTION Status: Acute Comment: Pt has PE, likely contributing to Demand ischemia. Pt on Aspirin/ BB, Anticoagulation with lovenox. (10) Hypertension Code(s): I10 - ESSENTIAL (PRIMARY) HYPERTENSION Status: Chronic Qualifiers: Hypertension type: essential hypertension Qualified Code(s): I10 - Essential (primary) hypertension - Plan continue antibiotics, DVT proph w/lovenox, DVT proph w/SCDs cont supportive care. On IV abx,IVF,vent support -: cont Lovenox renally dosed for PE. -: cont cardiazem drip for a-fib w RVR. -: poor prognosis. family in discussion w PCCM & palliative care team -: am labs. * . Review of Systems - Review of Systems Other: can not be obtained due to intubated and sedated state - Medications/Allergies Allergies/Adverse Reactions: Allergies Allergy/AdvReac Type Severity Reaction Status Date / Time Penicillins Allergy Mild Verified 12/25/15 23:07 Medications: Current Medications Acetaminophen (Tylenol) 650 mg PO Q4H PRN PRN Reason: Headache/Fever or Pain Albuterol/Ipratropium (Duoneb) 3 ml NEB [id number] [facility] Last Admin: 01/01/18 13:05 Dose: 3 ml Aspirin (Aspirin Chewable) 81 mg PO DAILY [facility] Last Admin: 01/01/18 09:08 Dose: Not Given Atorvastatin Calcium (Lipitor) 10 mg PO DAILY [facility] Last Admin: 01/01/18 09:08 Dose: Not Given Bisacodyl (Dulcolax) 10 mg HI Q8H PRN PRN Reason: Constipation Last Admin: 12/31/17 09:30 Dose: 10 mg Clonidine (Catapres) 0.1 mg PO Q6HR PRN PRN Reason: Hypertension Last Admin: 12/22/17 04:21 Dose: 0.1 mg Dextrose/Water (Dextrose 50%) 25 gm SLOW IVP PRN PRN PRN Reason: Hypoglycemia Digoxin (Lanoxin) 0.125 mg SLOW IVP DAILY [facility] Last Admin: 01/01/18 11:32 Dose: 0.125 mg Diltiazem HCl (Cardizem) 60 mg PO ACHS [facility] Last Admin: 01/01/18 11:41 Dose: Not Given Enoxaparin Sodium (Lovenox) 60 mg SC 2100 [facility] Last Admin: 12/31/17 20:27 Dose: 60 mg Folic Acid (Folvite) 1 mg PO DAILY [facility] Last Admin: 01/01/18 09:08 Dose: Not Given Glucagon (Glucagon) 1 mg IM PRN PRN PRN Reason: Hypoglycemia Hydralazine HCl (Apresoline) 10 mg SLOW IVP Q3H PRN PRN Reason: .SBP >170 Last Admin: 12/26/17 21:42 Dose: 10 mg Dextrose/Water (D5w) 1,000 mls @ 0 mls/hr IV .Q0M PRN PRN Reason: Hypoglycemia Cefepime HCl 1 gm/ Sodium (Chloride) 100 mls @ 200 mls/hr IVPB Q12HR [facility] Last Admin: 01/01/18 11:38 Dose: 100 mls Norepinephrine Bitartrate (Levophed) 250 mls @ 0 mls/hr IVPB INF PRN; Protocol PRN Reason: Blood Pressure Diltiazem HCl 125 mg/Miscellaneous Medication 1 each/ Sodium Chloride 125 mls @ 5 mls/hr IVPB INF DELIO; Protocol Last Admin: 12/31/17 21:18 Dose: 125 mls Micafungin Sodium 100 mg/ (Sodium Chloride) 100 mls @ 100 mls/hr IVPB 0900 [facility] Last Admin: 01/01/18 11:40 Dose: 100 mls Multivitamins 10 ml/ Chromium/Copper/Manganese/Seleni/Zn 5 ml/ Amino Acids/ Electrolytes/Dextrose 2,015 mls @ 50 mls/hr IV 2200 DELIO Dextrose/Water (D5w) 1,000 mls @ 75 mls/hr IV .[id number] [facility] Last Admin: 01/01/18 15:19 Dose: 1,000 mls Insulin Human Regular (Humulin R) 0 units SC .MILD SLIDING SCALE PRN PRN Reason: Mild Correctional Scale Last Admin: 01/01/18 05:41 Dose: 2 unit Insulin Human Regular (Humulin R) 0 units SC .BEDTIME SLIDING SC PRN PRN Reason: Bedtime Correctional Scale Last Admin: 12/30/17 05:51 Dose: 3 unit Levetiracetam (Keppra Oral Solution) 500 mg PO BID [facility] Last Admin: 01/01/18 09:08 Dose: Not Given Levothyroxine Sodium (Synthroid) 65 mcg IVP 0600 [facility] Last Admin: 01/01/18 05:39 Dose: 65 mcg Lorazepam (Ativan) 2 mg SLOW IVP Q1H PRN PRN Reason: Breakthrough agitation Stop: 01/26/18 17:38 Last Admin: 12/29/17 13:49 Dose: 2 mg Methylprednisolone Sodium Succinate (Solu-Medrol) 20 mg IVP DAILY [facility] Last Admin: 01/01/18 11:35 Dose: 20 mg Metoclopramide HCl (Reglan) 10 mg IVP Q6HR [facility] Last Admin: 01/01/18 12:16 Dose: 10 mg Metoprolol Tartrate (Lopressor) 25 mg PO BID [facility] Last Admin: 01/01/18 09:08 Dose: Not Given Miscellaneous Medication (Pharmacy To Dose) 1 each IVPB PRN PRN PRN Reason: Pharmacy to dose Ondansetron HCl (Zofran) 4 mg SLOW IVP Q2H PRN PRN Reason: Nausea/Vomiting Last Admin: 12/27/17 15:24 Dose: 4 mg Pantoprazole Sodium (Protonix) 40 mg IVP DAILY [facility] Last Admin: 01/01/18 11:37 Dose: 40 mg Potassium Bicarb/Potassium Chloride (K-Lyte Cl) 25 meq PO QAM-[facility] Last Admin: 01/01/18 09:08 Dose: Not Given Propofol (Diprivan) 1,000 mg IV INF PRN; Protocol PRN Reason: TO ACHIEVE GOAL RASS Stop: 01/26/18 17:38 Last Admin: 12/27/17 19:14 Dose: 1,000 mg Propofol (Diprivan Bolus) 20 mg IV Q5MIN PRN PRN Reason: BREAKTHROUGH AGITATION Stop: 01/26/18 17:38 Sodium Chloride (Flush - Normal Saline) 10 ml IVF Q12HR [facility] Last Admin: 01/01/18 11:41 Dose: 10 ml Sodium Chloride (Flush - Normal Saline) 10 ml IVF PRN PRN PRN Reason: Saline Flush
[2018-01-01] MEDS ORDERED: Acetaminophen 650 MG Suppository PR PRN (17:40)
--- NOTE | 2018-01-01 18:22 | CT ---
CT HEAD NONCONTRAST 01/01/18 HISTORY: Altered mental status. Weakness. COMPARISON: 12/23/17. FINDINGS: There is no evidence of acute intracranial hemorrhage or infarct. Diffuse cortical atrophy, chronic i schemic small vessel disease, and old lacunar infarcts are unchanged in appearance. There is no mass effect or shift of midline structures. Opacification of the left mastoid air cells has occurred since the previous exam. Middle ear cavity is also opacified. IMPRESSION: 1. No acute intracranial abnormalities are demonstrated. 2. Interval opacification left middle ear cavity and mastoid air cells. Cause is not evident. POS: [facility]
--- NOTE | 2018-01-01 18:29 | PRG ---
DATE OF SERVICE: 01/01/2018 SUBJECTIVE: The patient continues to be on the ventilator. She has not had any bowel movements per se. Has no new complaints. OBJECTIVE: VITAL SIGNS: Temperature 99.4, respiratory rate 22, blood pressure 130/59, pulse 102. HEENT: Significant for orotracheal tube and oral gastric tube. CHEST: Clear. CARDIOVASCULAR: Regular rate and rhythm. ABDOMEN: Soft, nontender. Bowel sounds are absent. RECTAL: Deferred. EXTREMITIES: Normal. Output shows a gastric drainage of 1200 mL when it was last put in today. LABORATORY DATA: Shows a white blood cell count of 37.5, hemoglobin 10, hematocrit 30, MCV of 108, 8 0% neutrophils, 18 bands. Chemistries show sodium 148, CO2 of 17, BUN 67, creatinine 1.51, glucose 1 93, calcium 6.8, AST of 236 and ALT of 575. IMAGING: CT of the abdomen and pelvis shows some thickening of the colonic wall diffusely and mildly dilated ileum. ASSESSMENT: 1. Colitis by CT - Clostridium difficile versus ischemia. No evidence for infarction or free air. 2. Abnormal liver function tests - probably secondary to patient's underlying sepsis. 3. Respiratory failure. 4. Ileus. RECOMMENDATIONS: 1. Begin TPN. 2. Stool for C. diff. 3. Flexible sigmoidoscopy in a.m. 4. Add metronidazole IV. 5. Follow LFTs.
[2018-01-01] MEDS: Enoxaparin Sodium 60 MG/0.6 ML SYRINGE SC SCH (20:49)
[2018-01-01] MEDS: metroNIDAZOLE 500 MG in Premix Bag 1 BAG IVPB SCH (21:07)
[2018-01-01] MEDS: Diltiazem HCl 125 MG, Admixture Fee 1 EACH in Sodium Chloride 0.9% 100 ML IVPB SCH (21:07)
[2018-01-01] MEDS ORDERED: Multivitamins, Adult 10 ML, Multitrace-5 5 ML in D50W-AA 8.5% with Lytes 2,000 ML IV SCH (22:00)
--- NOTE | 2018-01-01 22:40 | CON ---
DATE OF CONSULTATION: 01/01/2018 CONSULTING PHYSICIAN: Hospitalist Service. 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 Her prognosis of neurologic recovery would appear reasonably good, although I have some conc giovani that she may have suffered a stroke with some left-sided weakness. PLAN: 1. CT scan of the brain. 2. Continue supportive measures. HISTORY OF PRESENT ILLNESS: Ms. Aguiar is an 82-year-old white female, is living at home with her tamara. According to her son, she had moderately advanced dementia. She required assistance in all a ctivities of daily living. She did recognize family and carry on conversations. She apparently had a fall and vertebral fracture, subsequently diagnosed with a urinary tract infection. The infection spread and she became septic. She had an elevated white count of over 30,000. Her renal function be came impaired with BUNs in the 60s, but creatinine is below 2. Liver enzymes also bumped a bit. She went into respiratory failure and had to be intubated. Vital signs have been stable for the most pa rt. Her wanted a neurologic opinion. PAST MEDICAL HISTORY: Dementia. ALLERGIES: PENICILLIN. SOCIAL HISTORY: No tobacco or alcohol use. FAMILY HISTORY: Noncontributory. REVIEW OF SYSTEMS: Not obtainable. PHYSICAL EXAMINATION: GENERAL: She is a well-nourished elderly woman on ventilatory support. VITAL SIGNS: Blood pressure 130/58, respirations 26, pulse 100, saturations 96%. HEENT: Pupils are equal and reactive. Eyes appear conjugate. Conjunctivae clear. NEUROLOGIC: She is orally intubated these. Her face appeared grossly symmetric. In testing tone, i t seemed to be a bit more normal on the right as compared to a more flaccid tone on the left. Planta r response was downgoing on the right and equivocal on the left. No abnormal movements were seen. LABORATORY STUDIES: Reviewed. SUMMARY: This is an elderly woman with dementia and multiorgan failure. Her prognosis for survival would appear tenuous. Neurologic prognosis would depend on whether she has suffered an ischemic even t and I have explained this to her son.
--- NOTE | 2018-01-01 23:54 | PRG ---
DATE OF SERVICE: 01/01/2018 SUBJECTIVE: This 82-year-old female being seen for acute kidney injury. The patient is intubated an d resting. PHYSICAL EXAMINATION: VITAL SIGNS: Afebrile, pulse 70, breathing at 16, blood pressure 154/74. GENERAL APPEARANCE AND MENTAL STATUS: Patient is intubated. HEAD/NECK: Normocephalic. Atraumatic. EYES: EOMI. No deformity. EARS: Clear. No ulcers. NOSE: Intact. No lesions. MOUTH: Clear. No discharge. THROAT: Clear. No exudate. LUNGS: Clear. No crackles. CARDIAC: S1, S2. No rub. ABDOMEN: Benign. BS+. GENITALIA/RECTUM: Norman absent. BACK/EXTREMITIES: Edema 0+ Ulcer- NEUROLOGICAL: . SKIN: Rash- Bruise- LYMPHATICS: Edema- Ulcer- LABORATORY DATA: Hemoglobin , creatinine 1.5, sodium 148, bicarbonate 17. ASSESSMENT AND RECOMMENDATIONS: 1. Acute kidney injury, improving. 2. Chronic kidney disease stage 3, stable. 3. Hyponatremia. Recommend D5W. 4. Metabolic acidosis. Recommend sodium bicarbonate. I will sign off on this patient. Please long nsult as needed.
[2018-01-02] MEDS: Dextrose 5% in Water 1,000 ML IV SCH ×2 (05:37→17:15)
[2018-01-02] MEDS: Metoclopramide HCl 10 MG/2 ML VIAL IVP SCH ×4 (05:37→23:18)
[2018-01-02] MEDS: metroNIDAZOLE 500 MG in Premix Bag 1 BAG IVPB SCH ×3 (05:37→21:03)
[2018-01-02 05:38] LABS: Anion Gap 12 mmol/L (10-20); BUN (Urea Nitrogen) 60 mg/dL (9.8-20.1); Calc. Creatinine Clearance 38 mL/min (70-130); Calcium 7.2 mg/dL (7.8-10.44); Carbon Dioxide 18 mmol/L (23-31); Chloride 122 mmol/L (98-107); Estimated GFR-MDRD 38; Glucose 315 mg/dL (83-110); Sodium 149 mmol/L (136-145)
[2018-01-02 05:39] LABS: ALT (SGPT) 408 U/L (8-55); AST (SGOT) 134 U/L (5-34); Albumin 2.2 g/dL (3.4-4.8); Alkaline Phosphatase 125 U/L (40-150); Bilirubin, Direct 0.7 mg/dL (0.1-0.3); Bilirubin, Total 1.2 mg/dL (0.2-1.2)
[2018-01-02 05:40] LABS: Potassium 2.9 mmol/L (3.5-5.1)
[2018-01-02] MEDS: Levothyroxine 100 MCG SDV IVP SCH (05:40)
[2018-01-02] MEDS: Insulin Regular 300 UNITS/3 ML VIAL SC PRN ×4 (05:42→22:35)
[2018-01-02] MEDS ORDERED: Potassium Chloride 20 MEQ in Premix Bag 1 BAG IVPB SCH (06:15)
[2018-01-02 06:29] LABS: Band 13 % (5-11); Hemoglobin 9.5 g/dL (12.0-16.0); Lymphocytes 2 % (21-51); MDiff Complete? YES; Macrocytosis SLIGHT = 6-15 cells (100X) (0-5/hpf); Mean Corpuscular HGB CONC 32.2 g/dL (32.0-36.0); Mean Corpuscular Hemoglobin 35.1 pg (27.0-31.0); Mean Platelet Volume 10.1 fL (7.4-10.4); Neutrophil 85 % (42-75); PLT Morphology Comment Appears Adequate; Platelet Count 153 thou/uL (130-400); RBC Distribution Width 15.5 % (11.5-14.5); Red Blood Cell (RBC) Count 2.71 mill/uL (4.20-5.40); White Blood Cell (WBC) Count 30.9 thou/uL (4.8-10.8)
--- NOTE | 2018-01-02 07:17 | PRG ---
DATE OF SERVICE: 01/02/2018 CONSULTING PHYSICIAN: Hospitalist service. Ms. Aguiar remains on ventilatory support. Her vital signs are stable. There has been no significan t interval change in her neurologic status. Reviewed her CT scan of the brain, which shows extensive cerebral atrophy and white matter ischemic changes, but no definite acute change. Overall, her stat us remains stable. Given the CT scan changes, it is difficult to say whether there is an acute small vessel stroke, but no major large vessel ischemic event has occurred. Her prognosis remains reasona negrito good to return to her baseline status, albeit impaired due to her significant dementia. We can c ontinue supportive measures with the hope that she will return to her baseline status.
[2018-01-02 07:43] LABS: pH, Arterial 7.47 (7.35-7.45)
[2018-01-02 07:44] LABS: O2 Tension (PaO2) 89.7 mmHg (> 60.0)
[2018-01-02 07:45] LABS: Actual Bicarbonate (HCO3a) 17.2 mEq/L (22-28); Base Excess (BEa) -5.2 mEq/L (-2.0 to +3.0); Calcium, Ionized 1.08 mmol/L (1.12-1.30); Carboxyhemoglobin (COHb) 1.1 gm% (0.0-3.0); Hemoglobin (Hb) 9.8 g/dL (12.0-16.0); Puncture Site RRA
--- NOTE | 2018-01-02 08:03 | PRG ---
DATE OF SERVICE: 01/02/2018 The patient remains intubated on the vent, encephalopathic. She appears to be slightly more arousabl e. She opens her eyes. Still tachypneic at a rate of 31. PHYSICAL EXAMINATION: VITAL SIGNS: Blood pressure 137/76, pulse 108, temperature is 98. I's & O's have improved, 2376 in, 240 out. CHEST: Chest reveals bilateral rhonchi. CARDIAC: Sinus tachycardia. ABDOMEN: Abdomen is distended and soft. LABORATORY: Her creatinine is improved to 1.3, potassium 2.8. AST is still 134, pO2 is 89, pCO2 20, pH of 47. White count 30,000. IMPRESSION: 1. Abdominal sepsis. 2. History of dementia. 3. History of pulmonary embolus. 4. History of colitis, ischemic. 5. Aspiration pneumonia. 6. Supraventricular tachycardia. PLAN: She is on IV Synthroid, Reglan, micafungin, Flagyl and meropenem. TPN was initiated. She is clearly not weanable at this stage. At this stage, the family states no C UT, but they want to continue vent support. We will follow. One-half hour critical care time.
--- NOTE | 2018-01-02 08:14 | RAD ---
SINGLE VIEW OF THE CHEST: COMPARISON: 01/01/18. HISTORY: Ventilated patient with respiratory failure. FINDINGS: A single view of the chest shows a normal-size cardiomediastinal silhouette. The lines and tubes are unchanged in position. Airspace opacity is seen in the right lung, most prominent in the right uppe r lobe which likely represents an infiltrate. No left-sided infiltrates are seen. There may be a sm all right pleural effusion. IMPRESSION: Stable exam. POS: [facility]
[2018-01-02] MEDS ORDERED: MEROPENEM 1 GM/50 ML 1 GM in Premix Bag 1 BAG IVPB SCH (09:00)
--- NOTE | 2018-01-02 09:06 | OP ---
DATE OF PROCEDURE: SURGEON: Dr. Diony Almodovar PREOPERATIVE DIAGNOSIS: Colitis by CT scan. PROCEDURE: After informed consent was obtained, the patient placed in left lateral decubitus positio n. Anesthesia administered per the Anesthesia Department. Forward-viewing gastroscope was inserted into the rectum after perianal inspection and rectal exam were normal. I was only able to pass to t he 30 cm cori because of unprepped and poorly prepped colon. The colon was diffusely ulcerated. Bio psies were taken. This looked consistent with ischemia. ASSESSMENT: 1. Probable ischemic colitis - status post biopsy. 2. No prep flex sig. RECOMMENDATIONS: 1. Supportive care. 2. TPN.
[2018-01-02] MEDS: Pot Chloride/Pot Bicarb/Cit Ac 25 mEq Effervescent Tablet PO SCH (09:13)
[2018-01-02] MEDS: Atorvastatin Calcium 10 MG TAB PO SCH (09:14)
[2018-01-02] MEDS: levETIRAcetam 500 mg/5 ml Oral Solution PO SCH (09:14)
[2018-01-02] MEDS: Metoprolol Tartrate 25 MG TAB PO SCH ×2 (09:14→21:06)
[2018-01-02] MEDS: Folic Acid 1 MG TAB PO SCH (09:14)
[2018-01-02] MEDS: Micafungin 100 MG in Sodium Chloride 0.9% 100 ML IVPB SCH (09:57)
[2018-01-02] MEDS: Digoxin 0.5 MG/2 ML AMP SLOW IVP SCH (09:58)
[2018-01-02] MEDS: Pantoprazole 40 MG VIAL IVP SCH (10:00)
[2018-01-02] MEDS: Diltiazem HCl 125 MG, Admixture Fee 1 EACH in Sodium Chloride 0.9% 100 ML IVPB SCH ×2 (10:48→22:00)
[2018-01-02] MEDS ORDERED: TPN IVPB PRN (11:14)
[2018-01-02 11:55] VITALS: BMI 25.3
[2018-01-02] MEDS ORDERED: CCU Electrolyte Replacement 1 EACH FS ONE (14:25)
--- NOTE | 2018-01-02 14:27 | PDOC.PN ---
- Subjective Encounter Start Date: 01/02/18 Encounter Start Time: 14:26 Subjective: remains vent dependent. Unweanable per PCCM -: Flex sig today showing Ischemic colitis -: reports that she opened her eyes yesterday - Objective Resuscitation Status: Resuscitation Status DNR:Do Not Resuscitate MAR Reviewed: Yes Vital Signs & Weight: Vital Signs (12 hours) Temp Pulse Resp BP Pulse Ox 01/02/18 14:03 93 35 H 95 01/02/18 14:00 34 H 01/02/18 12:37 90 173/75 H 01/02/18 12:00 97.7 F 41 H 01/02/18 10:00 30 H 01/02/18 09:58 112 H 01/02/18 08:00 99.1 F 34 H 01/02/18 07:46 99.1 F 112 H 34 H 97 01/02/18 07:12 97 173/76 H 01/02/18 07:10 108 H 31 H 96 01/02/18 06:00 32 H 01/02/18 04:00 34 H 01/02/18 03:00 98.6 F Weight Admit Weight 141 lb Weight 161 lb 13.109 oz Most Recent Monitor Data Heart Rate from ECG 95 NIBP 169/67 NIBP BP-Mean 83 Respiration from ECG 34 SpO2 96 I&O: 01/01/18 01/02/18 01/03/18 06:59 06:59 06:59 Intake Total 3050 2376.1 50 Output Total 3300 2470 857 Balance -250 -93.9 -807 Result Diagrams: 01/02/18 04:35 01/02/18 04:35 Additional Labs: Accuchecks 01/02/18 01/01/18 01/01/18 12:08 23:14 18:39 POC Glucose 271 H 211 H 197 H Microbiology 12/27/17 17:35 Bronchial Washing - Aspirate Respiratory Culture - Final Presumptive Leydi albicans 12/23/17 22:59 Urine Straight Catheter Urine Culture - Final NO GROWTH AT 36 HOURS 12/23/17 22:49 Venous blood - Left Hand Blood Culture - Final NO GROWTH IN 5 DAYS 12/23/17 22:49 Venous blood - Left Arm Blood Culture - Final NO GROWTH IN 5 DAYS 12/21/17 13:33 Venous blood - Right Hand Blood Culture - Final NO GROWTH IN 5 DAYS 12/21/17 13:31 Venous blood - Left Arm Blood Culture - Final NO GROWTH IN 5 DAYS 12/21/17 12:16 Urine Straight Catheter Urine Culture - Final Escherichia coli Phys Exam - Physical Examination Constitutional: NAD intubated HEENT: sclera anicteric ETT Neck: no JVD Respiratory: no wheezing, no rales Cardiovascular: RRR, no significant murmur Gastrointestinal: soft, non-tender, no distention, positive bowel sounds Musculoskeletal: no edema, pulses present, edema present Dx/Plan (1) Acute and chronic respiratory failure with hypoxia Code(s): J96.21 - ACUTE AND CHRONIC RESPIRATORY FAILURE WITH HYPOXIA Status: Acute Comment: Pt intubated following aspiration, continue with IV Abx. (2) Metabolic encephalopathy Code(s): G93.41 - METABOLIC ENCEPHALOPATHY Status: Acute (3) Ischemic colitis Code(s): K55.9 - VASCULAR DISORDER OF INTESTINE, UNSPECIFIED Status: Acute (4) Atrial fibrillation with RVR Code(s): I48.91 - UNSPECIFIED ATRIAL FIBRILLATION Status: Acute Comment: on IV Dogoxin,CCB IV. Converted to Sinus Post Flex-sigmoidoscopy today (5) MAYRA (acute kidney injury) Code(s): N17.9 - ACUTE KIDNEY FAILURE, UNSPECIFIED Status: Acute Comment: improving (6) Ileus Code(s): K56.7 - ILEUS, UNSPECIFIED Status: Acute Comment: TPN initiated.Moniotr Lytes (7) Aspiration pneumonia due to vomit Code(s): J69.0 - PNEUMONITIS DUE TO INHALATION OF FOOD AND VOMIT Status: Acute Comment: on Cefepime.now also on micafungin due to Leydi on Bronchial washing (8) Pulmonary embolism Code(s): I26.99 - OTHER PULMONARY EMBOLISM WITHOUT ACUTE COR PULMONALE Status : Acute Comment: Pt stated on Lovenox 1mg /kg renally dosed,, pulmonary following. (9) Compression fracture of thoracic vertebra Code(s): S22.000A - WEDGE COMPRESSION FRACTURE OF UNSP THORACIC VERTEBRA, INIT Status: Acute Qualifiers: Encounter type: initial encounter (10) Hypernatremia Code(s): E87.0 - HYPEROSMOLALITY AND HYPERNATREMIA Status: Acute Comment: On D5W (11) NSTEMI (non-ST elevated myocardial infarction) Code(s): I21.4 - NON-ST ELEVATION (NSTEMI) MYOCARDIAL INFARCTION Status: Acute Comment: Pt has PE, likely contributing to Demand ischemia. Pt on Aspirin/ BB, Anticoagulation with lovenox. (12) Hypertension Code(s): I10 - ESSENTIAL (PRIMARY) HYPERTENSION Status: Chronic Qualifiers: Hypertension type: essential hypertension Qualified Code(s): I10 - Essential (primary) hypertension - Plan plan discussed w/ family, continue antibiotics, PT/OT, social sciences professor, respiratory therapy, DVT proph w/lovenox, DVT proph w/SCDs Poor prognosis. Cont Vent support and TPN. Monitor lytes -: replace and recheck Potassium -: renal Fx improving. Monitor. No Indication of HD -: day #7 tomorrow on ETT. Family to decide comfort care Vs Trach soon -: cont supportive care and am labs for now * .Change Keppra to IV as pt no longer has dobhoff Review of Systems - Review of Systems Other: can not be obtained due to intubated and sedated state - Medications/Allergies Allergies/Adverse Reactions: Allergies Allergy/AdvReac Type Severity Reaction Status Date / Time Penicillins Allergy Mild Verified 12/25/15 23:07 Medications: Current Medications Acetaminophen (Tylenol) 650 mg OK Q4H PRN PRN Reason: Headache/Fever or Pain Last Admin: 01/01/18 17:54 Dose: 650 mg Albuterol/Ipratropium (Duoneb) 3 ml NEB [id number] [facility] Last Admin: 01/02/18 14:03 Dose: 3 ml Aspirin (Aspirin Chewable) 81 mg PO DAILY [facility] Last Admin: 01/02/18 09:13 Dose: Not Given Bisacodyl (Dulcolax) 10 mg OK Q8H PRN PRN Reason: Constipation Last Admin: 12/31/17 09:30 Dose: 10 mg Clonidine (Catapres) 0.1 mg PO Q6HR PRN PRN Reason: Hypertension Last Admin: 12/22/17 04:21 Dose: 0.1 mg Dextrose/Water (Dextrose 50%) 25 gm SLOW IVP PRN PRN PRN Reason: Hypoglycemia Digoxin (Lanoxin) 0.125 mg SLOW IVP DAILY [facility] Last Admin: 01/02/18 09:58 Dose: 0.125 mg Diltiazem HCl (Cardizem) 60 mg PO ACHS [facility] Last Admin: 01/02/18 14:22 Dose: Not Given Enoxaparin Sodium (Lovenox) 60 mg SC 2100 [facility] Last Admin: 01/01/18 20:49 Dose: 60 mg Folic Acid (Folvite) 1 mg PO DAILY [facility] Last Admin: 01/02/18 09:14 Dose: Not Given Glucagon (Glucagon) 1 mg IM PRN PRN PRN Reason: Hypoglycemia Hydralazine HCl (Apresoline) 10 mg SLOW IVP Q3H PRN PRN Reason: .SBP >170 Last Admin: 12/26/17 21:42 Dose: 10 mg Dextrose/Water (D5w) 1,000 mls @ 0 mls/hr IV .Q0M PRN PRN Reason: Hypoglycemia Norepinephrine Bitartrate (Levophed) 250 mls @ 0 mls/hr IVPB INF PRN; Protocol PRN Reason: Blood Pressure Diltiazem HCl 125 mg/Miscellaneous Medication 1 each/ Sodium Chloride 125 mls @ 5 mls/hr IVPB INF [facility]; Protocol Last Admin: 01/02/18 10:48 Dose: 125 mls Micafungin Sodium 100 mg/ (Sodium Chloride) 100 mls @ 100 mls/hr IVPB 0900 [facility] Last Admin: 01/02/18 09:57 Dose: 100 mls Dextrose/Water (D5w) 1,000 mls @ 75 mls/hr IV .[id number] [facility] Last Admin: 01/02/18 05:37 Dose: 1,000 mls Metronidazole 500 mg/ Device 100 mls @ 100 mls/hr IVPB Q8HR [facility] Last Admin: 01/02/18 14:17 Dose: 100 mls Meropenem 1 gm/ Device 50 mls @ 100 mls/hr IVPB 0900,2100 [facility] Multivitamins 10 ml/ Chromium/Copper/Manganese/Seleni/Zn 5 ml/ Amino Acids/ Electrolytes 2,015 mls @ 83.958 mls/hr IV 2200 [facility] Insulin Human Regular (Humulin R) 0 units SC .BEDTIME SLIDING SC PRN PRN Reason: Bedtime Correctional Scale Last Admin: 12/30/17 05:51 Dose: 3 unit Insulin Human Regular (Humulin R) 0 units SC .AGGRESSIVE SLIDING PRN; Protocol PRN Reason: AGGRESSIVE SLIDING SCALE Last Admin: 01/02/18 12:10 Dose: 9 units Levetiracetam (Keppra Oral Solution) 500 mg PO BID [facility] Last Admin: 01/02/18 09:14 Dose: Not Given Levothyroxine Sodium (Synthroid) 65 mcg IVP 0600 [facility] Last Admin: 01/02/18 05:40 Dose: 65 mcg Lorazepam (Ativan) 2 mg SLOW IVP Q1H PRN PRN Reason: Breakthrough agitation Stop: 01/26/18 17:38 Last Admin: 12/29/17 13:49 Dose: 2 mg Methylprednisolone Sodium Succinate (Solu-Medrol) 20 mg IVP DAILY [facility] Last Admin: 01/02/18 10:00 Dose: 20 mg Metoclopramide HCl (Reglan) 10 mg IVP Q6HR [facility] Last Admin: 01/02/18 12:31 Dose: 10 mg Metoprolol Tartrate (Lopressor) 25 mg PO BID [facility] Last Admin: 01/02/18 09:14 Dose: Not Given Miscellaneous Medication (Pharmacy To Dose) 1 each IVPB PRN PRN PRN Reason: Pharmacy to dose Miscellaneous Medication (Pharmacy To Dose) 0 each IVPB PRN PRN PRN Reason: TPN Miscellaneous Medication (Ccu Electrolyte Replacement) 1 each FS ONE ONE Stop: 01/02/18 14:26 Ondansetron HCl (Zofran) 4 mg SLOW IVP Q2H PRN PRN Reason: Nausea/Vomiting Last Admin: 12/27/17 15:24 Dose: 4 mg Pantoprazole Sodium (Protonix) 40 mg IVP DAILY [facility] Last Admin: 01/02/18 10:00 Dose: 40 mg Potassium Bicarb/Potassium Chloride (K-Lyte Cl) 25 meq PO QAM-WM [facility] Last Admin: 01/02/18 09:13 Dose: Not Given Propofol (Diprivan) 1,000 mg IV INF PRN; Protocol PRN Reason: TO ACHIEVE GOAL RASS Stop: 01/26/18 17:38 Last Admin: 12/27/17 19:14 Dose: 1,000 mg Propofol (Diprivan Bolus) 20 mg IV Q5MIN PRN PRN Reason: BREAKTHROUGH AGITATION Stop: 01/26/18 17:38 Sodium Chloride (Flush - Normal Saline) 10 ml IVF Q12HR [facility] Last Admin: 01/02/18 09:58 Dose: 10 ml Sodium Chloride (Flush - Normal Saline) 10 ml IVF PRN PRN PRN Reason: Saline Flush
[2018-01-02] MEDS ORDERED: Potassium Chloride 20 MEQ TAB PO PRN (14:29)
[2018-01-02] MEDS ORDERED: Potassium Chloride 40 MEQ in Sodium Chloride 0.9% 250 ML 250 ML IVPB PRN (14:29)
[2018-01-02] MEDS ORDERED: Potassium Phosphate 12 MMOL in Sodium Chloride 0.9% 250 ML 250 ML IV PRN (14:29)
[2018-01-02] MEDS ORDERED: Potassium Phosphate 15 MMOL in Sodium Chloride 0.9% 250 ML 250 ML IV PRN (14:29)
[2018-01-02] MEDS ORDERED: Magnesium Oxide 400 MG TAB PO PRN ×2 (14:29)
[2018-01-02] MEDS ORDERED: Magnesium 2 GM/NS 0.9% 100 ML 2 GM in Premix Bag 1 BAG IVPB PRN (14:29)
[2018-01-02] MEDS ORDERED: CCU ELECTROLYTE REPLACEMENT PROTOCOL FS PRN (14:29)
[2018-01-02] MEDS ORDERED: Potassium Chloride 40 MEQ in Premix Bag 1 BAG IVPB PRN (14:29)
[2018-01-02] MEDS ORDERED: Potassium Phosphate 9 MMOL in Sodium Chloride 0.9% 100 ML IVPB PRN (14:29)
--- NOTE | 2018-01-02 16:12 | PDOC.EVN ---
Event Note - Event Note Event Note: ACP Meeting- Met with family to discuss diagnosis and prognosis. family conference done in CCU Meeting room with 2 Sons,1 daughter and Pt;s . Discussed in details all the progress and set backs so far. family very appreciative of the care provided. Children seem to be leaning more towards Comfort care but very reluctant to make that decision. reassurance provided and repeated the fact that Pt is very sick and probably not comfortable with daily procedures, labs, IV etc. All Qs answered.Prognosis remains poor , given the fact that baseline mental and physical status was reportedly poor. At the end of long discussion, is still undecided and struggling to make a definitive chouce towards Comfort care Vs Aggressive approach w Trach and PEG. Will meet with them again as necessary. Total time spent in the ACP discussion 20 minutes. Pt remains a DNR.
--- NOTE | 2018-01-02 20:08 | PDOC.CTH ---
Cardiology Progress Note - Subjective No new issues. Remains Intubated. - Objective Vital Signs Temp Pulse Resp BP Pulse Ox 01/02/18 19:45 110 H 01/02/18 19:44 95 01/02/18 18:00 27 H 01/02/18 17:00 105 H 147/60 H 01/02/18 16:00 98.6 F 32 H 01/02/18 14:03 93 35 H 95 01/02/18 14:00 34 H 01/02/18 12:37 90 173/75 H 01/02/18 12:00 97.7 F 41 H 01/02/18 10:00 30 H 01/02/18 09:58 112 H Admit Weight 141 lb Weight 161 lb 13.109 oz 01/01/18 01/02/18 01/03/18 06:59 06:59 06:59 Intake Total 3050 2376.1 1434 Output Total 3300 2470 1467 Balance -250 -93.9 -33 - Physical Examination General/Neuro: other: (Intubated.) Neck: no JVD present Lungs: unlabored respirations Heart: RRR Abdomen: NT/ND Extremities: + edema B (Trace) - Telemetry Telemetry Rhythm: Afib -> NSR - Labs Result Diagrams: 01/02/18 04:35 01/02/18 04:35 Troponin/CKMB CK-MB (CK-2) 5.1 ng/mL (0-6.6) 12/23/17 22:49 Troponin I 1.902 ng/mL (< 0.028) H* 12/25/17 20:06 - Assessment/Plan 1. aspiration pneumonia i2. leus 3. afib, SVT, back in sinus now. 4. CAD 5. s/p stent 6. Respiratory failure 7. Hyokalemia PLAN: - CV stable. - Continue Diltiazem drip for now as BP high. - Continue full dose lovenox for stroke prophylaxis. - Replace K.
[2018-01-02] MEDS: hydrALAZINE 20 MG/ML VIAL SLOW IVP PRN (20:45)
[2018-01-02] MEDS: Enoxaparin Sodium 60 MG/0.6 ML SYRINGE SC SCH (21:02)
[2018-01-02] MEDS: MEROPENEM 1 GM/50 ML 1 GM in Premix Bag 1 BAG IVPB SCH (21:06)
[2018-01-02] MEDS: Multivitamins, Adult 10 ML, Multitrace-5 5 ML in D15W-AA 5% with Lytes 2,000 ML IV SCH (22:07)
[2018-01-03] MEDS: Insulin Regular 300 UNITS/3 ML VIAL SC PRN ×4 (04:49→22:53)
[2018-01-03] MEDS: Levothyroxine 100 MCG SDV IVP SCH (05:11)
[2018-01-03] MEDS: metroNIDAZOLE 500 MG in Premix Bag 1 BAG IVPB SCH ×3 (05:11→22:47)
[2018-01-03] MEDS: Metoclopramide HCl 10 MG/2 ML VIAL IVP SCH ×3 (05:11→18:03)
[2018-01-03 05:19] LABS: Anion Gap 12 mmol/L (10-20); BUN (Urea Nitrogen) 60 mg/dL (9.8-20.1); Calc. Creatinine Clearance 44 mL/min (70-130); Calcium 7.6 mg/dL (7.8-10.44); Carbon Dioxide 18 mmol/L (23-31); Chloride 122 mmol/L (98-107); Estimated GFR-MDRD 46; Glucose 241 mg/dL (83-110); Potassium 3.1 mmol/L (3.5-5.1); Sodium 149 mmol/L (136-145)
[2018-01-03 06:31] LABS: Band 25 % (5-11); Lymphocytes 3 % (21-51); MDiff Complete? YES; Macrocytosis SLIGHT = 6-15 cells (100X) (0-5/hpf); Mean Corpuscular HGB CONC 31.5 g/dL (32.0-36.0); Mean Corpuscular Hemoglobin 34.5 pg (27.0-31.0); Mean Platelet Volume 9.9 fL (7.4-10.4); Metamyelocyte 1 % (0-0); Monocytes 2 % (0-10); Neutrophil 69 % (42-75); PLT Morphology Comment Appears Adequate; Platelet Count 172 thou/uL (130-400); RBC Distribution Width 15.8 % (11.5-14.5); Red Blood Cell (RBC) Count 2.89 mill/uL (4.20-5.40); White Blood Cell (WBC) Count 29.9 thou/uL (4.8-10.8)
[2018-01-03] MEDS: Dextrose 5% in Water 1,000 ML IV SCH (07:46)
[2018-01-03] MEDS: Metoprolol Tartrate 25 MG TAB PO SCH ×2 (07:47→14:55)
[2018-01-03] MEDS: Folic Acid 1 MG TAB PO SCH (07:47)
[2018-01-03] MEDS: Pot Chloride/Pot Bicarb/Cit Ac 25 mEq Effervescent Tablet PO SCH (07:47)
[2018-01-03 08:50] LABS: CO2 Tension 25.1 mmHg (35.0-45.0); pH, Arterial 7.47 (7.35-7.45)
[2018-01-03 08:51] LABS: Actual Bicarbonate (HCO3a) 17.7 mEq/L (22-28); Base Excess (BEa) -4.9 mEq/L (-2.0 to +3.0); Calcium, Ionized 1.15 mmol/L (1.12-1.30); Carboxyhemoglobin (COHb) 1.6 gm% (0.0-3.0); Hemoglobin (Hb) 10.4 g/dL (12.0-16.0); O2 Tension (PaO2) 74.1 mmHg (> 60.0); Potassium - ABG Lab 4.1 mmol/L (3.70-5.30)
[2018-01-03 08:52] LABS: ALV-art Gradient 179.725 (0-20); Puncture Site RRA
--- NOTE | 2018-01-03 09:55 | PDOC.PN ---
- Subjective Encounter Start Date: 01/03/18 (f/u hyperglycemia) Encounter Start Time: 09:54 Subjective: No overnight events. Pt remains intubated, no sedation required. - Objective Resuscitation Status: Resuscitation Status DNR:Do Not Resuscitate Vital Signs & Weight: Vital Signs (12 hours) Temp Pulse Resp BP Pulse Ox 01/03/18 08:00 97.5 F L 35 H 01/03/18 07:29 113 H 141/75 H 01/03/18 07:24 107 H 36 H 96 01/03/18 07:16 97.5 F L 107 H 38 H 95 01/03/18 06:00 24 H 01/03/18 04:00 98.9 F 95 28 H 01/03/18 02:00 29 H 01/03/18 00:13 93 96/51 L 01/03/18 00:12 94 L 01/03/18 00:00 99.3 F 31 H 01/02/18 22:00 39 H Weight Admit Weight 141 lb Weight 162 lb 11.218 oz Most Recent Monitor Data Heart Rate from ECG 108 NIBP 145/59 NIBP BP-Mean 87 Respiration from ECG 29 SpO2 93 I&O: 01/02/18 01/03/18 01/04/18 06:59 06:59 06:59 Intake Total 2376.1 2769 Output Total 2470 2572 205 Balance -93.9 197 -205 Result Diagrams: 01/03/18 04:44 01/03/18 04:44 Additional Labs: Accuchecks 01/03/18 01/02/18 01/02/18 04:43 22:31 18:18 POC Glucose 209 H 248 H 343 H 01/02/18 12:08 POC Glucose 271 H EKG Reviewed by me: Yes (a fib rate 110's) Phys Exam - Physical Examination Constitutional: NAD tachypneic with coarse breath sounds Cardiovascular: no significant murmur, irregular Gastrointestinal: soft, positive bowel sounds movement of head with abdominal exam - c/w pain 2+ edema in LE Only movement of head with abd exam, otherwise no spontaneous movement Deviation from normal: unable to assess Dx/Plan (1) MAYRA (acute kidney injury) Code(s): N17.9 - ACUTE KIDNEY FAILURE, UNSPECIFIED Status: Acute (2) Acute and chronic respiratory failure with hypoxia Code(s): J96.21 - ACUTE AND CHRONIC RESPIRATORY FAILURE WITH HYPOXIA Status: Acute (3) Atrial fibrillation Code(s): I48.91 - UNSPECIFIED ATRIAL FIBRILLATION Status: Chronic Qualifiers: Atrial fibrillation type: paroxysmal Qualified Code(s): I48.0 - Paroxysmal atrial fibrillation (4) Dementia Code(s): F03.90 - UNSPECIFIED DEMENTIA WITHOUT BEHAVIORAL DISTURBANCE Status: Chronic Qualifiers: Dementia type: unspecified type - Plan * Appreciate multiple specialists involved in patient's care * * Blood sugars elevated - will start lantus this morning and continue SSI - change to moderate * replace potassium - is on the protocol * * dvt prophy - lovenox * gi prophy - IV protonix. * * code status dnr * * Discussed care with patient's daughter - will speak with pt's as he is available. Will specifically discuss current status and overall poor prognosis with short anticipated life expectancy.
[2018-01-03] MEDS ORDERED: Insulin Glargine 15 UNITS in Pre-Filled Syringe 1 EACH SC SCH (10:15)
[2018-01-03] MEDS: Pantoprazole 40 MG VIAL IVP SCH (10:25)
[2018-01-03] MEDS: Digoxin 0.5 MG/2 ML AMP SLOW IVP SCH (10:27)
[2018-01-03] MEDS: Diltiazem HCl 125 MG, Admixture Fee 1 EACH in Sodium Chloride 0.9% 100 ML IVPB SCH ×2 (10:28→22:56)
[2018-01-03] MEDS: Micafungin 100 MG in Sodium Chloride 0.9% 100 ML IVPB SCH (10:29)
[2018-01-03] MEDS: MEROPENEM 1 GM/50 ML 1 GM in Premix Bag 1 BAG IVPB SCH ×2 (10:29→20:44)
[2018-01-03] MEDS ORDERED: Morphine 4 MG/ML VIAL SLOW IVP PRN (14:39)
--- NOTE | 2018-01-03 16:55 | PDOC.CTH ---
Cardiology Progress Note - Subjective No new issues. Remains intubated. - Objective Vital Signs Temp Pulse Resp BP Pulse Ox 01/03/18 15:16 106 H 149/73 H 01/03/18 14:00 34 H 01/03/18 13:57 115 H 38 H 95 01/03/18 12:42 109 H 147/59 H 01/03/18 12:00 98.4 F 37 H 01/03/18 10:27 113 H 01/03/18 10:00 37 H 01/03/18 08:00 97.5 F L 35 H 01/03/18 07:29 113 H 141/75 H 01/03/18 07:24 107 H 36 H 96 01/03/18 07:16 97.5 F L 107 H 38 H 95 01/03/18 06:00 24 H Admit Weight 141 lb Weight 162 lb 11.218 oz 01/02/18 01/03/18 01/04/18 06:59 06:59 06:59 Intake Total 2376.1 2769 Output Total 2470 2572 636 Balance -93.9 197 -636 - Physical Examination General/Neuro: other: (Intubated, sedated. ) Neck: carotid US brisk Lungs: CTA Heart: RRR Abdomen: NT/ND Extremities: other: (no edema.) - Telemetry Telemetry Rhythm: NSR - Labs Result Diagrams: 01/03/18 04:44 01/03/18 04:44 Troponin/CKMB CK-MB (CK-2) 5.1 ng/mL (0-6.6) 12/23/17 22:49 Troponin I 1.902 ng/mL (< 0.028) H* 12/25/17 20:06 - Assessment/Plan 1. aspiration pneumonia i2. leus 3. afib, SVT, back in sinus now. 4. CAD 5. s/p stent 6. Respiratory failure 7. Hyokalemia PLAN: - CV stable. - Continue Diltiazem drip for now. - Continue full dose lovenox for stroke prophylaxis. - Replace K.
[2018-01-03] MEDS: Enoxaparin Sodium 60 MG/0.6 ML SYRINGE SC SCH (20:44)
--- NOTE | 2018-01-03 22:52 | PRG ---
DATE OF SERVICE: 01/03/2018 SUBJECTIVE: Ksenia Aguiar is unresponsive. She is mechanically ventilated. Her minute volume is a bout 20 liters per minute, no matter what the ventilator assistance settings are. OBJECTIVE: VITAL SIGNS: Heart rates 113, oximetry is 94, blood pressure 145/65. Intake and output positive 197. GENERAL: She is unresponsive. She has minimal gag. LUNGS: Clear. CARDIOVASCULAR: Regular rate and rhythm. ABDOMEN: Soft without guarding. EXTREMITIES: Without asymmetry or edema. LABORATORY DATA: White count is 30.9, hemoglobin 9.5, platelets 153,000. Sodium 149, potassium 3.1, chloride 122, bicarbonate 18, BUN 60, creatinine 1.14. pH 7.7, pCO2 of 2 5, pO2 of 74. IMPRESSION: 1. Respiratory failure. 2. Ischemic bowel. 3. Encephalopathy. 4. Dementia. She is currently not weanable. Family is not at a point where they are willing to withdraw care. We will continue with current supportive care measures in critical care unit.
[2018-01-03] MEDS: Multivitamins, Adult 10 ML, Multitrace-5 5 ML in D15W-AA 5% with Lytes 2,000 ML IV SCH (22:57)
[2018-01-04] MEDS: Metoclopramide HCl 10 MG/2 ML VIAL IVP SCH ×4 (00:04→18:10)
[2018-01-04] MEDS: Dextrose 5% in Water 1,000 ML IV SCH ×3 (00:05→23:15)
[2018-01-04 04:58] LABS: Anion Gap 8 mmol/L (10-20); BUN (Urea Nitrogen) 67 mg/dL (9.8-20.1); Calc. Creatinine Clearance 47 mL/min (70-130); Calcium 7.8 mg/dL (7.8-10.44); Carbon Dioxide 21 mmol/L (23-31); Chloride 124 mmol/L (98-107); Estimated GFR-MDRD 49; Glucose 222 mg/dL (83-110); Potassium 3.9 mmol/L (3.5-5.1); Sodium 149 mmol/L (136-145)
[2018-01-04] MEDS: metroNIDAZOLE 500 MG in Premix Bag 1 BAG IVPB SCH ×3 (05:08→23:14)
[2018-01-04] MEDS: Levothyroxine 100 MCG SDV IVP SCH (05:08)
[2018-01-04] MEDS: Insulin Regular 300 UNITS/3 ML VIAL SC PRN ×3 (05:09→16:32)
[2018-01-04 05:39] LABS: Band 31 % (5-11); Lymphocytes 6 % (21-51); MDiff Complete? YES; Macrocytosis SLIGHT = 6-15 cells (100X) (0-5/hpf); Mean Corpuscular HGB CONC 32.2 g/dL (32.0-36.0); Mean Corpuscular Hemoglobin 35.5 pg (27.0-31.0); Mean Platelet Volume 10.6 fL (7.4-10.4); Monocytes 3 % (0-10); Neutrophil 60 % (42-75); Nucleated RBC 2 % (0); PLT Morphology Comment Appears Adequate; Platelet Count 199 thou/uL (130-400); RBC Distribution Width 15.9 % (11.5-14.5); Red Blood Cell (RBC) Count 2.82 mill/uL (4.20-5.40); Target Cells SLIGHT = 2-5 cells (100X) (0-1/hpf); White Blood Cell (WBC) Count 25.2 thou/uL (4.8-10.8)
[2018-01-04] MEDS: Digoxin 0.5 MG/2 ML AMP SLOW IVP SCH (08:22)
[2018-01-04] MEDS: Pot Chloride/Pot Bicarb/Cit Ac 25 mEq Effervescent Tablet PO SCH (08:29)
[2018-01-04] MEDS: MEROPENEM 1 GM/50 ML 1 GM in Premix Bag 1 BAG IVPB SCH ×2 (08:45→22:10)
--- NOTE | 2018-01-04 08:54 | PDOC.PN ---
- Subjective Encounter Start Date: 01/04/18 (f/u DM) Encounter Start Time: 08:52 Subjective: Pt remains on vent, not requiring sedation or restraints -: No overnight events - Objective Resuscitation Status: Resuscitation Status DNR:Do Not Resuscitate Vital Signs & Weight: Vital Signs (12 hours) Temp Pulse Resp BP Pulse Ox 01/04/18 08:22 109 H 01/04/18 08:21 112 H 123/72 01/04/18 08:20 108 H 35 H 92 L 01/04/18 05:59 35 H 01/04/18 04:00 98.9 F 32 H 01/04/18 03:50 94 01/04/18 02:00 32 H 01/04/18 00:00 99.2 F 28 H 01/03/18 23:47 100 167/73 H 01/03/18 22:00 29 H Weight Admit Weight 141 lb Weight 162 lb 0.636 oz Most Recent Monitor Data Heart Rate from ECG 100 NIBP 161/68 NIBP BP-Mean 101 Respiration from ECG 34 SpO2 94 I&O: 01/03/18 01/04/18 01/05/18 06:59 06:59 06:59 Intake Total 2769 2992 Output Total 2572 1679 Balance 197 1313 Result Diagrams: 01/04/18 04:05 01/04/18 04:05 Additional Labs: Accuchecks 01/03/18 01/03/18 01/03/18 22:53 16:44 11:24 POC Glucose 247 H 199 H 232 H EKG Reviewed by me: Yes (a fib rate 100-110's) Phys Exam - Physical Examination Constitutional: NAD Respiratory: no wheezing, no rales, no rhonchi Cardiovascular: no significant murmur, irregular Gastrointestinal: soft hypoactive bowel sounds. No movement today with exam weeping of RUE with erythema and edema along medial aspect no induration or fluctuance Deviation from normal: intubated Deviation from normal: see above Dx/Plan (1) MAYRA (acute kidney injury) Code(s): N17.9 - ACUTE KIDNEY FAILURE, UNSPECIFIED Status: Resolved (2) Acute and chronic respiratory failure with hypoxia Code(s): J96.21 - ACUTE AND CHRONIC RESPIRATORY FAILURE WITH HYPOXIA Status: Acute (3) Atrial fibrillation Code(s): I48.91 - UNSPECIFIED ATRIAL FIBRILLATION Status: Chronic Qualifiers: Atrial fibrillation type: paroxysmal Qualified Code(s): I48.0 - Paroxysmal atrial fibrillation (4) Dementia Code(s): F03.90 - UNSPECIFIED DEMENTIA WITHOUT BEHAVIORAL DISTURBANCE Status: Chronic Qualifiers: Dementia type: unspecified type (5) Hypernatremia Code(s): E87.0 - HYPEROSMOLALITY AND HYPERNATREMIA Status: Acute (6) Ileus Code(s): K56.7 - ILEUS, UNSPECIFIED Status: Acute Comment: TPN initiated.Ignacio Lyman (7) Ischemic colitis Code(s): K55.9 - VASCULAR DISORDER OF INTESTINE, UNSPECIFIED Status: Acute - Plan * Appreciate multiple specialists involved in patient's care - no appreciable change today * * Blood sugars elevated - lantus started yesterday at 15 units - increase to 22 units today * * No change to other medications * * dvt prophy - lovenox * gi prophy - IV protonix. * * code status dnr * * Awaiting pt's to have family conversation about current situation, dismal prognosis and end of life expected soon. * * 18:52 - reviewed chart and blood sugars remain in the 200's today. Tube feeds started at low rate. Will add on 10 units of lantus tonight, and continue to titrate.
[2018-01-04 08:57] LABS: pH, Arterial 7.41 (7.35-7.45)
[2018-01-04 08:58] LABS: Actual Bicarbonate (HCO3a) 19.1 mEq/L (22-28); Base Excess (BEa) -4.6 mEq/L (-2.0 to +3.0); CO2 Tension 30.9 mmHg (35.0-45.0); O2 Tension (PaO2) 66.6 mmHg (> 60.0)
[2018-01-04 08:59] LABS: Carboxyhemoglobin (COHb) 1.2 gm% (0.0-3.0); Hemoglobin (Hb) 10.4 g/dL (12.0-16.0); Potassium - ABG Lab 4.1 mmol/L (3.70-5.30)
[2018-01-04 09:00] LABS: Calcium, Ionized 1.15 mmol/L (1.12-1.30)
[2018-01-04] MEDS ORDERED: Insulin Glargine 15 UNITS in Pre-Filled Syringe 1 EACH SC SCH (09:00)
[2018-01-04] MEDS ORDERED: Insulin Glargine 22 UNITS in Pre-Filled Syringe 1 EACH SC SCH (09:00)
[2018-01-04 09:01] LABS: Puncture Site RBA
[2018-01-04 09:04] LABS: ALV-art Gradient 179.975 (0-20)
[2018-01-04] MEDS: Micafungin 100 MG in Sodium Chloride 0.9% 100 ML IVPB SCH (09:29)
[2018-01-04] MEDS: Pantoprazole 40 MG VIAL IVP SCH (09:29)
[2018-01-04] MEDS: Diltiazem HCl 125 MG, Admixture Fee 1 EACH in Sodium Chloride 0.9% 100 ML IVPB SCH (13:23)
--- NOTE | 2018-01-04 13:54 | PRG ---
DATE OF SERVICE: 01/04/2018 SUBJECTIVE: The patient is essentially unchanged. She is on the ventilator. OBJECTIVE: VITAL SIGNS: Pulse is 107, blood pressure 105/50, respiratory rate 34, temperature 98.4. CHEST: Cl ear. CARDIOVASCULAR: Regular rate and rhythm. ABDOMEN: Soft, nontender. Bowel sounds are hypoactive. RECTAL: Deferred. EXTREMITIES: Show edema. LABORATORY DATA: Shows sodium of 149, chloride 124, CO2 21, BUN 67, creatinine 107, glucose 255. Wh ite blood cell count 25.2, hemoglobin 10, hematocrit 31. ASSESSMENT: 1. Colitis - suspect ischemia. 2. Respiratory failure. 3. Malnutrition. 4. Ileus - seems to be resolving. 5. Dementia. RECOMMENDATIONS: 1. I had a long discussion with the patient yesterday following that prognosis was poor. 2. Wean TPN. 3. Trial of tube feedings.
--- NOTE | 2018-01-04 16:39 | PRG ---
DATE OF SERVICE: 01/04/2018 SUBJECTIVE: Ms. Aguiar is unresponsive. She remains ventilated. OBJECTIVE: VITAL SIGNS: Heart rate is 108, blood pressure 138/72, respiratory rate is still high with a minute volume of 21 liters a minute. GENERAL: She still has signs of severe diaphragm weakness on exam. LUNGS: Remarkable for mild rhonchi bilaterally. HEART: Regular rhythm. ABDOMEN: Soft. EXTREMITIES: Without asymmetry. NEUROLOGIC: Not assessable since she is obtunded. LABORATORY DATA: Intake and output is positive 1313. White count 25.2, hemoglobin 10.0, platelets 1 99,000. Sodium 149, potassium 3.8, chloride 124, bicarbonate 21, BUN 67, creatinine 1.07. IMPRESSION: 1. Respiratory failure. 2. She is not weanable. 3. Ischemic bowel, on TPN. PLAN: She is not a surgical candidate in my opinion. There is no good solution to this problem othe r than withdrawal of care and comfort measures. I spent close to 45 minutes with the son and the jemima [id number] explaining all of this. They understand. The is the one that is hesitant to wi thdraw support. I have asked him to relay the conversation to his father. We will continue with [facility] supportive care.
[2018-01-04] MEDS ORDERED: Sodium Chloride 0.9% 1,000 ML IV SCH (20:15)
[2018-01-04] MEDS: Enoxaparin Sodium 60 MG/0.6 ML SYRINGE SC SCH (20:21)
[2018-01-04] MEDS ORDERED: Insulin Glargine 10 UNITS in Pre-Filled Syringe 1 EACH SC SCH (21:00)
[2018-01-04] MEDS: Multivitamins, Adult 10 ML, Multitrace-5 5 ML in D15W-AA 5% with Lytes 2,000 ML IV SCH (23:18)
[2018-01-05] MEDS ORDERED: Sodium Chloride 0.9% 1,000 ML IV SCH (01:00)
[2018-01-05] MEDS: Metoclopramide HCl 10 MG/2 ML VIAL IVP SCH ×3 (01:37→12:16)
[2018-01-05 06:14] VITALS: TEMP 100.2
[2018-01-05] MEDS: metroNIDAZOLE 500 MG in Premix Bag 1 BAG IVPB SCH (06:16)
[2018-01-05] MEDS: Levothyroxine 100 MCG SDV IVP SCH (06:27)
[2018-01-05 07:02] LABS: Anion Gap 10 mmol/L (10-20); BUN (Urea Nitrogen) 80 mg/dL (9.8-20.1); Calc. Creatinine Clearance 36 mL/min (70-130); Calcium 7.3 mg/dL (7.8-10.44); Carbon Dioxide 20 mmol/L (23-31); Chloride 122 mmol/L (98-107); Estimated GFR-MDRD 36; Glucose 102 mg/dL (83-110); Potassium 4.2 mmol/L (3.5-5.1); Sodium 148 mmol/L (136-145)
--- NOTE | 2018-01-05 08:11 | PDOC.PN ---
- Subjective Encounter Start Date: 01/05/18 Encounter Start Time: 08:10 Subjective: intubated, - Objective Resuscitation Status: Resuscitation Status DNR:Do Not Resuscitate MAR Reviewed: Yes Vital Signs & Weight: Vital Signs (12 hours) Temp Pulse Resp BP 01/05/18 07:40 110 H 150/49 H 01/05/18 06:00 36 H 01/05/18 04:00 100.2 F H 38 H 01/05/18 02:02 99 01/05/18 02:00 29 H 01/05/18 00:00 99.7 F H 34 H 01/04/18 22:35 111 H 105/46 L 01/04/18 22:00 34 H Weight Admit Weight 141 lb Weight 163 lb 5.8 oz Most Recent Monitor Data Heart Rate from ECG 103 NIBP 106/57 NIBP BP-Mean 61 Respiration from ECG 34 SpO2 94 I&O: 01/04/18 01/05/18 01/06/18 06:59 06:59 06:59 Intake Total 2992 0176 Output Total 1679 635 Balance 1313 4071 Result Diagrams: 01/04/18 04:05 01/05/18 06:30 Additional Labs: Accuchecks 01/05/18 01/04/18 01/04/18 04:14 22:09 16:29 POC Glucose 107 150 H 241 H 01/04/18 11:32 POC Glucose 255 H Phys Exam - Physical Examination Neck: no JVD Respiratory: clear to auscultation bilateral Cardiovascular: RRR, no significant murmur Gastrointestinal: soft, positive bowel sounds Musculoskeletal: edema present Dx/Plan (1) Compression fracture of thoracic vertebra Code(s): S22.000A - WEDGE COMPRESSION FRACTURE OF UNSP THORACIC VERTEBRA, INIT Status: Acute Qualifiers: Encounter type: initial encounter (2) Atrial fibrillation Code(s): I48.91 - UNSPECIFIED ATRIAL FIBRILLATION Status: Chronic Qualifiers: Atrial fibrillation type: paroxysmal Qualified Code(s): I48.0 - Paroxysmal atrial fibrillation (3) Dementia Code(s): F03.90 - UNSPECIFIED DEMENTIA WITHOUT BEHAVIORAL DISTURBANCE Status: Chronic Qualifiers: Dementia type: unspecified type (4) Falls frequently Code(s): 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.6 - REPEATED FALLS Status: Chronic (5) Hypertension Code(s): I10 - ESSENTIAL (PRIMARY) HYPERTENSION Status: Chronic Qualifiers: Hypertension type: essential hypertension Qualified Code(s): I10 - Essential (primary) hypertension (6) Rheumatoid arthritis Code(s): M06.9 - RHEUMATOID ARTHRITIS, UNSPECIFIED Status: Chronic Qualifiers: Rheumatoid factor presence: unspecified presence Laterality: unspecified laterality (7) Elevated troponin Code(s): R74.8 - ABNORMAL LEVELS OF OTHER SERUM ENZYMES Status: Acute (8) NSTEMI (non-ST elevated myocardial infarction) Code(s): I21.4 - NON-ST ELEVATION (NSTEMI) MYOCARDIAL INFARCTION Status: Acute Comment: Pt has PE, likely contributing to Demand ischemia. Pt on Aspirin/ BB, Anticoagulation with lovenox. (9) SVT (supraventricular tachycardia) Code(s): I47.1 - SUPRAVENTRICULAR TACHYCARDIA Status: Acute Comment: Likely from PE. (10) Respiratory failure with hypoxia Code(s): J96.91 - RESPIRATORY FAILURE, UNSPECIFIED WITH HYPOXIA Status: Acute (11) Pulmonary emboli Code(s): I26.99 - OTHER PULMONARY EMBOLISM WITHOUT ACUTE COR PULMONALE Status : Acute - Plan difficult situation, progressive complications of initial event -: vent dependent -: on lovenox for PE -: prognosis guarded -: cont accu/ss/etc * .
[2018-01-05 08:16] LABS: Band 30 % (5-11); Lymphocytes 5 % (21-51); MDiff Complete? YES; Mean Corpuscular HGB CONC 31.1 g/dL (32.0-36.0); Mean Corpuscular Hemoglobin 34.7 pg (27.0-31.0); Mean Platelet Volume 10.4 fL (7.4-10.4); Metamyelocyte 1 % (0-0); Monocytes 3 % (0-10); Neutrophil 61 % (42-75); Nucleated RBC 5 % (0); Platelet Count 187 thou/uL (130-400); Polychromasia SLIGHT = 2-3 cells (100X) (0-2/hpf); RBC Distribution Width 16.1 % (11.5-14.5); Red Blood Cell (RBC) Count 2.59 mill/uL (4.20-5.40); White Blood Cell (WBC) Count 25.7 thou/uL (4.8-10.8)
--- NOTE | 2018-01-05 08:20 | PRG ---
DATE OF SERVICE: 01/05/2018 Thirty-five minutes critical care time. SUBJECTIVE: This patient remains intubated on mechanical ventilation. The patient is unresponsive t o deep painful stimuli that I applied. PHYSICAL EXAMINATION: VITAL SIGNS: On exam, temperature is 100.2 with a T-max of 100.3, pulse 103, blood pressure 106/57. Currently, the patient is on no vasopressors. Total intake 4706, output 635, weight 163 pounds. HEENT EXAM: Pupils are 4 mm and reactive. Sclerae are anicteric. Oropharynx, endotracheal tube in place. NECK: No JVD. LUNGS: Clear anteriorly. CARDIOVASCULAR: S1 and S2 sounds, tachycardic without murmur. ABDOMEN: Soft, distended. Bowel sounds quiet. EXTREMITIES: Edematous legs and arms, has ischemic changes in her fingers. LABORATORY DATA: Sodium 148, potassium 4.2, chloride 122, CO2 of 20, BUN 80, creatinine 1.4, glucose 102. ABG result is pending. White blood cell count 25.2 yesterday. IMPRESSION: 1. Acute respiratory failure, requiring mechanical ventilation. 2. Ischemic bowel. 3. Hypernatremia. 4. Prerenal azotemia. PLAN: Apparently, this case is becoming futile. The family has been hesitant to withdraw support. In the meantime, we are continuing mechanical ventilation, antibiotics, antifungals. The patient is currently on D5W for IV fluids, which should help with the hypernatremia. We will adjust the blood g as if needed.
[2018-01-05] MEDS: MEROPENEM 1 GM/50 ML 1 GM in Premix Bag 1 BAG IVPB SCH (09:00)
[2018-01-05] MEDS: Pantoprazole 40 MG VIAL IVP SCH (09:00)
[2018-01-05] MEDS ORDERED: Insulin Glargine 10 UNITS in Pre-Filled Syringe 1 EACH SC SCH (09:00)
[2018-01-05] MEDS: Micafungin 100 MG in Sodium Chloride 0.9% 100 ML IVPB SCH (10:00)
[2018-01-05] MEDS: Digoxin 0.5 MG/2 ML AMP SLOW IVP SCH (10:00)
[2018-01-05 10:20] VITALS: BP 44/29
--- NOTE | 2018-01-05 10:49 | EKG ---
Test Reason : Blood Pressure : / mmHG Vent. Rate : 092 BPM Atrial Rate : 115 BPM P-R Int : 000 ms QRS Dur : 080 ms QT Int : 368 ms P-R-T Axes : 000 021 062 degrees QTc Int : 455 ms Atrial fibrillation Nonspecific ST and T wave abnormality Abnormal ECG When compared with ECG of 29-DEC-2017 03:20, Vent. rate has decreased BY 53 BPM Criteria for Anterior infarct are no longer Present Nonspecific T wave abnormality now evident in Inferior leads Nonspecific T wave abnormality, worse in Lateral leads Confirmed by DR. Samantha REYNA ([id number]), senior technical editor BRANDAN ROBLES ([id number]) on 01/05/2018 10:49:12 AM Referred By: Confirmed By:DR. Samantha REYNA
--- NOTE | 2018-01-05 11:20 | PDOC.EVN ---
Event Note - Event Note Event Note: family7 and ready to remove vent support. will comply
--- NOTE | 2018-01-05 15:40 | DIS ---
TRANSFER OF CARE/ SUMMARY DATE OF ADMISSION: 12/11/2017 DATE OF : 01/05/2018 TIME: 12:58. PRIMARY CARE PROVIDER: Marilou Tierney M.D. FINAL DIAGNOSES: Acute respiratory failure with hypoxemia, [id number] myocardial infarction, p ulmonary emboli, deep vein thrombosis. ADDITIONAL DIAGNOSES: Supraventricular tachycardia, hypertension, atrial fibrillation. HOSPITAL COURSE: The patient admitted to the hospital, 12/21/2017, to [facility], his tory of osteoporosis and dementia, severe back pain, found to have acute T12 compression fracture. S he was placed in the hospital. She was seen in consultation, 12/21/2017, by Va Garcia, julietramya teresa was for a [facility], rehab when improved. 12/22/2017, patient was noted to have elevated troponin. Dr. Sutherland was consulted, suggested demand ischemia. 12/24/2017, she had a code green , and history of SVT. She had serial troponins of 1.15, 4.02, 1.9. Cardiology had recommended conse rvative therapy. In the [facility], she was seen in consultation by Dr. Max Hurst, pulmonary intensivi st, agreed with supportive care. On 12/26/2017, she was noted to have progressive hypoxia. Lasix wa s started. CTA of the chest ordered. Patient was seen in consultation on 12/28/[address] Collado, Nephrology, for acute kidney injury. ASHVIN inhibitor and potassium were stopped. At that point, she was in septic shock on Levophed, tachycardic. Over the next several days, the patient's renal functi on got worse to a creatinine of 2.42, and then was slowly improving. The patient required intubation and ventilation. The patient's course continued to be steadily downhill despite aggressive treatmen t to stabilize her. No aggressive treatment was done for her non-STEMI. She did receive enoxaparin for her pulmonary embolus. The patient declined slowly. Her blood cultures revealed no sepsis from bacteria. Over the past several days, change from full resuscitation to DNR had been discussed with the family. Today, I discussed with the family and with the . The decision was to remove car e and extubate her. This was done. She was pronounced by the nursing staff. I talked to the michael titus both before extubation and after the patient succumbed. No procedures were done except intubat ion, IV, etc. No autopsy was requested. The patient's body has been released to the home.
== END 2018-01-05 12:58 | disposition expired | DRG 551 ==
LOC: ERS 12:01 → 2NO 13:56 → IMCU/EMU 12-23 23:38 → CCU 12-27 16:54
PROVIDERS: ADMIT Internal Medicine; ATTEND Internal Medicine
PROC: 5A1955Z Respiratory Ventilation, Greater than 96 Consecutive Hours (ICD-10-PCS; principal; 2017-12-28)
PROC: 0BH17EZ Insertion of Endotracheal Airway into Trachea, Via Natural or Artificial Opening (ICD-10-PCS; 2017-12-28)
PROC: 3E0436Z Introduction of Nutritional Substance into Central Vein, Percutaneous Approach (ICD-10-PCS; 2018-01-01)
PROC: 05HM33Z Insertion of Infusion Device into Right Internal Jugular Vein, Percutaneous Approach (ICD-10-PCS; 2018-01-01)
PROC: B543ZZA Ultrasonography of Right Jugular Veins, Guidance (ICD-10-PCS; 2018-01-01)
PROC: 0DBN8ZX Excision of Sigmoid Colon, Via Natural or Artificial Opening Endoscopic, Diagnostic (ICD-10-PCS; 2018-01-03)
DX: S22.080A Wedge compression fracture of T11-T12 vertebra, initial encounter for closed fracture (principal); J69.0 Pneumonitis due to inhalation of food and vomit; I26.99 Other pulmonary embolism without acute cor pulmonale; G93.41 Metabolic encephalopathy; I21.4 Non-ST elevation (NSTEMI) myocardial infarction; J96.21 Acute and chronic respiratory failure with hypoxia; A41.9 Sepsis, unspecified organism; R65.21 Severe sepsis with septic shock; N39.0 Urinary tract infection, site not specified; K56.7 Ileus, unspecified; I47.1 Supraventricular tachycardia; E87.1 Hypo-osmolality and hyponatremia; E87.0 Hyperosmolality and hypernatremia; N17.9 Acute kidney failure, unspecified; K55.9 Vascular disorder of intestine, unspecified; I82.401 Acute embolism and thrombosis of unspecified deep veins of right lower extremity; N18.4 Chronic kidney disease, stage 4 (severe); E46 Unspecified protein-calorie malnutrition; E87.2 Acidosis; M81.0 Age-related osteoporosis without current pathological fracture; F03.90 Unspecified dementia, unspecified severity, without behavioral disturbance, psychotic disturbance, mood disturbance, and anxiety; W01.0XXA Fall on same level from slipping, tripping and stumbling without subsequent striking against object, initial encounter; M06.9 Rheumatoid arthritis, unspecified; Y92.9 Unspecified place or not applicable; J42 Unspecified chronic bronchitis; Z66 Do not resuscitate; I48.91 Unspecified atrial fibrillation; I25.10 Atherosclerotic heart disease of native coronary artery without angina pectoris; B96.20 Unspecified Escherichia coli [E. coli] as the cause of diseases classified elsewhere; I12.9 Hypertensive chronic kidney disease with stage 1 through stage 4 chronic kidney disease, or unspecified chronic kidney disease; Z68.25 Body mass index [BMI] 25.0-25.9, adult; Z79.82 Long term (current) use of aspirin; Z88.0 Allergy status to penicillin; Z95.5 Presence of coronary angioplasty implant and graft
CPT/HCPCS: 36415; 36416; 51701; 70450; 71045; 71275; 72125; 72131; 72170; 74018; 74022; 74176; 80048; 80053; 80076; 81001; 81003; 81015; 82550; 82553; 82805; 83605; 83735; 83880; 84100; 84484; 85014; 85018; 85025; 85049; 85379; 85730; 86140; 87040; 87070; 87077; 87086; 87186; 87205; 88305; 93005; 93010; 93970; 94002; 94003; 94640; 94660; 96365; A4216; A4353; C1751; C9113; G8978-GP-CM; G8979-GP-CK; J0131; J0360; J0692; J0696; J1160; J1644; J1650; J1815; J1940; J1953; J2060; J2185; J2248; J2250; J2270; J2405; J2704; J2765; J2920; J3475; J3480; J3490; J7050; J7620; L0639; P9045